=== PATIENT | female | born 1960 | race Caucasian/White ===

== ENCOUNTER 2017-09-22 20:26 | Emergency (ER) | payer MEDICAID, MEDICARE ==
[2017-09-22] MEDS ORDERED: OXYCODONE-ACETAMINOPHEN 5-325 MG TABLET PO ONE (21:07)
--- NOTE | 2017-09-22 21:09 | ER Document Report ---
HPI - HPI Patient complains to provider of: knee pain Pain Level: 5 Context: Patient is a 56-year-old female that comes emergency department for chief complaint of acute on chronic knee pain. She states she slipped in the shower and landed on both knees. Patient states she has bad degenerative breakdown in her knees and spends a lot of her time in a wheelchair, states that orthopedic surgeons have told her she was too heavy to get knee replacements. She was established and pain management in [place], she just moved back here with her , she states that she needs both primary care and pain management here but has not been able to get in yet. She denies head injury, she denies chest or abdominal pain. - REPRODUCTIVE Reproductive: DENIES: : - MUSCULOSKELETAL Musculoskeletal: REPORTS: Extremity pain - right shoulder bilateral knees Past Medical History - General Information source: Patient - Social History Smoking Status: Never Smoker Frequency of alcohol use: None Drug Abuse: None Lives with: Family Family History: Reviewed & Not Pertinent Patient has suicidal ideation: No Patient has homicidal ideation: No - Past Medical History Cardiac Medical History: Reports: Hx Hypertension Denies: Hx Coronary Artery Disease, Hx Heart Attack Pulmonary Medical History: Reports: Hx Bronchitis, Hx Pneumonia Denies: Hx Asthma, Hx COPD, Hx Tuberculosis Neurological Medical History: Denies: Hx Cerebrovascular Accident, Hx Seizures Renal/ Medical History: Denies: Hx Peritoneal Dialysis Musculoskeltal Medical History: Reports Hx Arthritis Past Surgical History: Reports: Hx Cholecystectomy, Hx Hysterectomy, Hx Orthopedic Surgery. Denies: Hx Pacemaker - Immunizations Hx Diphtheria, Pertussis, Tetanus Vaccination: No Hx Pneumococcal Vaccination: 07/17/11 Vertical Provider Document - CONSTITUTIONAL General Appearance: WD/WN, Mild Distress - Patient appears to be uncomfortable but not in severe distress, Obese - HEENT HEENT: Atraumatic, Normocephalic - NECK Neck: Normal Inspection - RESPIRATORY Respiratory: Breath Sounds Normal, No Respiratory Distress O2 Sat by Pulse Oximetry: 94 - CARDIOVASCULAR Cardiovascular: Regular Rate, Regular Rhythm - GI/ABDOMEN Gastrointestinal: Abdomen Soft, Abdomen Non-Tender - MUSCULOSKELETAL/EXTREMETIES Musculoskeletal/Extremeties: Tender - Patient with generalized tenderness over the right rotator cuff, proximal humerus, and over the tricep and bicep. No swelling, range of motion intact, normal strength, normal distal neurovascular exam. Bilateral knees with mild generalized tenderness, questionable swelling, no erythema, abnormal heat; normal lower extremity exam otherwise. - NEURO Level of Consciousness: Awake, Alert, Appropriate - DERM Integumentary: Warm, Dry, No Rash Course - Re-evaluation Re-evalutation: Patient with bilateral degenerative changes in the knees with effusions and loss of joint space. No acute fractures or other acute concerning Antonellis. No erythema, abnormal heat, she does not walk well on them but she spends most of her time in a wheelchair. Patient also has calcification/tendinitis of the right shoulder. This is most likely cause of her pain as well. Patient requesting referrals to primary care and pain management, she is to see Dr. Prince and she wants referral to get back with him. She wants contact information. [place] drug reporting system reviewed and does not show any recent prescription in this state. Patient given small amount of pain medication until she can establish close follow-up with pain management, she states that she will follow-up with both pain management and primary care. Discussed that the ER does not manage chronic problems long-term and she needs to follow-up to get care. Discussed return precautions including fever, redness , swelling, or any other concerning symptoms. Patient and state understanding and agreement. - Vital Signs Vital signs: Temp Pulse Resp BP Pulse Ox 98.2 F 96 20 126/98 H 94 09/22/17 20:33 09/22/17 20:33 09/22/17 20:33 09/22/17 20:33 09/22/17 20:33 Discharge - Discharge Clinical Impression: Knee injury Qualifiers: Encounter type: initial encounter Laterality: unspecified laterality Qualified Code(s): S89.90XA - Unspecified injury of unspecified lower leg, initial encounter Chronic knee pain Qualifiers: Laterality: bilateral Qualified Code(s): M25.561 - Pain in right knee Condition: Stable Disposition: HOME, SELF-CARE Additional Instructions: X-rays do not show fractures, you do have loss of joint space, arthritis, and fluid in the knee on both sides. X-ray indicates arthritis and tendinitis of the shoulder. Apply ice to the area , take [id number] anti-inflammatory, rest the shoulder. Take the pain medication, call tomorrow for close follow-up with both primary care and pain management to establish care for this. Continue your stool softener. The ER does not continue to manage chronic pain conditions. Return to the emergency department if you worsen including redness, fever, or any other concerning symptoms. Prescriptions: Morphine Sulfate [Morphine Ir 15 Mg Tablet] 15 mg PO Q4HP PRN #12 tablet PRN Reason: Referrals: RENEE CALL MD [ACTIVE STAFF] - Follow up as needed GÓMEZ PRINCE MD [ACTIVE STAFF] - Follow up tomorrow [facility] [Provider Group] - Follow up tomorrow
--- NOTE | 2017-09-22 21:46 | RADIOLOGY REPORT (SQ) ---
EXAM DESCRIPTION: KNEE BILATERAL 1-2 VIEWS COMPLETED DATE/TIME: 09/22/2017 9:34 pm REASON FOR STUDY: fall on knees, pain COMPARISON: None. NUMBER OF VIEWS: Two views right knee. Two views left knee. TECHNIQUE: AP and lateral radiographic images acquired of the right and left knee. LIMITATIONS: None. FINDINGS: MINERALIZATION: Normal. BONES: No acute fracture. 3 compartment osteoarthritis with severe medial compartment joint space na rrowing bilateral. JOINT: Effusions. SOFT TISSUES: No soft tissue swelling. No radio-opaque foreign body. OTHER: No other significant finding. IMPRESSION: No acute fracture. 3 compartment osteoarthritis predominantly medial compartment. Effusions. TECHNICAL DOCUMENTATION: JOB ID: [id number] [employer]- All Rights Reserved
--- NOTE | 2017-09-22 22:52 | RADIOLOGY REPORT (SQ) ---
EXAM DESCRIPTION: SHOULDER RIGHT 2 OR MORE VIEWS CLINICAL HISTORY: 56 years, Female, right shoulder and arm pain COMPARISON: None. NUMBER OF VIEWS: Three. TECHNIQUE: Internal/external rotation, and scapular Y LIMITATIONS: None. FINDINGS: Punctate developmental calcification/tendinitis of the distal rotator cuff. Bones and joints of the right shoulder appear otherwise intact. IMPRESSION: As above. 2010 [employer] [facility] [employer]- All Rights Reserved
[2017-09-22] MEDS ORDERED: HYDROCODONE/ACETAMINOPHEN 5-325 MG 6 TAB/DSPK PO PRN (22:57)
[2017-09-22 23:13] VITALS: BP 134/62
== END 2017-09-22 23:13 | disposition home or self-care (01) ==
LOC: ER 20:26
DX: S89.90XA Unspecified injury of unspecified lower leg, initial encounter (principal); W18.2XXA Fall in (into) shower or empty bathtub, initial encounter; M25.561 Pain in right knee; M25.562 Pain in left knee; G89.29 Other chronic pain; M25.462 Effusion, left knee; M25.461 Effusion, right knee; M75.31 Calcific tendinitis of right shoulder; M25.511 Pain in right shoulder; I10 Essential (primary) hypertension
CPT/HCPCS: 99283; 73030; 73560; A9270 ×2

== ENCOUNTER 2017-09-28 17:42 | Emergency (ER) | payer MEDICARE ==
--- NOTE | 2017-09-28 18:44 | RADIOLOGY REPORT (SQ) ---
EXAM DESCRIPTION: KNEE LEFT 4 VIEW COMPLETED DATE/TIME: 09/28/2017 6:35 pm REASON FOR STUDY: fall COMPARISON: None. NUMBER OF VIEWS: Four views. TECHNIQUE: AP, lateral, and both oblique radiographic images acquired of the left knee. LIMITATIONS: None. FINDINGS: MINERALIZATION: Normal. BONES: No acute fracture or dislocation. Marked joint space narrowing with sclerosis and osteophytes , particularly in the medial compartment. No worrisome bone lesions. JOINT: No effusion. SOFT TISSUES: No soft tissue swelling. No radio-opaque foreign body. OTHER: No other significant finding. IMPRESSION: MARKED DEGENERATIVE JOINT DISEASE. NO RADIOGRAPHIC EVIDENCE OF ACUTE INJURY. TECHNICAL DOCUMENTATION: JOB ID: [id number] [employer]- All Rights Reserved
--- NOTE | 2017-09-28 18:44 | RADIOLOGY REPORT (SQ) ---
EXAM DESCRIPTION: SHOULDER RIGHT 2 OR MORE VIEWS COMPLETED DATE/TIME: 09/28/2017 6:35 pm REASON FOR STUDY: fall COMPARISON: None. NUMBER OF VIEWS: Three views. TECHNIQUE: Internal rotation, external rotation, and Y view images acquired of the right shoulder. LIMITATIONS: None. FINDINGS: MINERALIZATION: Normal. BONES: No acute fracture or dislocation. No worrisome bone lesions. JOINTS: No dislocation. VISUALIZED LUNGS AND RIBS: No pneumothorax. No rib fracture. SOFT TISSUES: No radiopaque foreign body. OTHER: No other significant finding. IMPRESSION: NO SIGNIFICANT RADIOGRAPHIC ABNORMALITY. TECHNICAL DOCUMENTATION: JOB ID: [id number] [employer]- All Rights Reserved
--- NOTE | 2017-09-28 19:17 | ER Document Report ---
ED General - General Chief Complaint: Fall Injury Stated Complaint: FALL KNEE PAIN Time Seen by Provider: 09/28/17 18:32 Notes: Patient is a 56-year-old female with a past medical history of chronic left knee pain, morbid obesity, who presents after she fell out of her bed this morning during a dream and landed on her left knee and right shoulder. She denies hitting her head or neck. She reports that since falling out of bed she has had a constant, throbbing, severe pain to the left knee and right shoulder. She notes that the pain is so severe prevents her from being able to walk. She has not seen her primary doctor regarding today's concerns. She has not tried anything for relief of her pain at home. TRAVEL OUTSIDE OF THE [place] IN LAST 30 DAYS: No - Related Data Allergies/Adverse Reactions: clindamycin Allergy (Verified 09/28/17 18:23) sulfamethoxazole [From Bactrim] Allergy (Verified 09/28/17 18:23) trimethoprim [From Bactrim] Allergy (Verified 09/28/17 18:23) vancomycin Allergy (Verified 09/28/17 18:23) Past Medical History - General Information source: Patient - Social History Smoking Status: Current Every Day Smoker Chew tobacco use (# tins/day): No Frequency of alcohol use: None Drug Abuse: None Lives with: Family Family History: Reviewed & Not Pertinent Patient has suicidal ideation: No Patient has homicidal ideation: No - Past Medical History Cardiac Medical History: Reports: Hx Hypertension Denies: Hx Coronary Artery Disease, Hx Heart Attack Pulmonary Medical History: Reports: Hx Bronchitis, Hx COPD - no home oxygen, Hx Pneumonia Denies: Hx Asthma, Hx Tuberculosis Neurological Medical History: Denies: Hx Cerebrovascular Accident, Hx Seizures Renal/ Medical History: Denies: Hx Peritoneal Dialysis Musculoskeltal Medical History: Reports Hx Arthritis Past Surgical History: Reports: Hx Cholecystectomy, Hx Hysterectomy, Hx Orthopedic Surgery - Bilateral feet screws. Denies: Hx Pacemaker - Immunizations Hx Diphtheria, Pertussis, Tetanus Vaccination: No Hx Pneumococcal Vaccination: 07/17/11 Review of Systems - Review of Systems Notes: Constitutional: Negative for fever. Eyes: Negative for visual changes. ENT: Negative for facial injury Cardiovascular: Negative for chest injury. Respiratory: Negative for shortness of breath. Gastrointestinal: Negative for abdominal injury. Genitourinary: Negative for genital injury Musculoskeletal: Positive for left knee and right shoulder pain Skin: Negative for laceration/abrasions. Neurological: Negative for head injury. Physical Exam - Vital signs Vitals: Temp Pulse Resp BP Pulse Ox 97.8 F 76 20 104/50 L 96 09/28/17 18:54 09/28/17 18:54 09/28/17 18:54 09/28/17 18:54 09/28/17 18:54 Interpretation: Normal Notes: PHYSICAL EXAMINATION: GENERAL: Appears uncomfortable but in no acute distress HEAD: Atraumatic, normocephalic. EYES: Pupils equal round and reactive to light, extraocular movements intact, sclera anicteric, conjunctiva are normal. ENT: nares patent, no oral pharyngeal trauma. No hemotympanum, no Levine's sign , no raccoon eyes. NECK: No midline cervical spine tenderness. Patient able to move their head to 45 bilaterally without any discomfort. LUNGS: Breath sounds clear to auscultation bilaterally and equal. No wheezes rales or rhonchi. HEART: Regular rate and rhythm without murmurs. CHEST WALL: No ecchymosis over the chest wall. ABDOMEN: Soft, nontender, normoactive bowel sounds. No guarding, no rebound. No abdominal bruit EXTREMITIES: Mild ecchymosis to the medial aspect of the left knee. Able to flex the knee to 90 with assistance. No evidence of trauma to the right shoulder. Full range of motion of the right shoulder. Extremity examination otherwise unremarkable. BACK: No midline spinal tenderness, step-offs, or deformities. NEUROLOGICAL: Moves all extremities spontaneously and on command PSYCH: Somewhat anxious, tearful SKIN: Warm, Dry, normal turgor, no rashes or lesions noted. Course - Re-evaluation Re-evalutation: 09/28/17 19:21 Presentation of a well appearing elderly patient in no acute distress, vitals within normal limits after a fall out of her bed earlier today landing on her right shoulder and left knee. She denies any head or neck trauma. No focal neurologic deficits on exam, no evidence of basilar skull fracture on exam without evidence of hemotympanum, raccoon eyes, or periauricular hematoma. No papilledema. Patient is not on anticoagulation. GCS is 15. No loss of consciousness. No episodes of vomiting. No midline cervical spine tenderness , step-offs or deformities. No indication for further imaging of the cervical spine. Patient was complaining of significant pain to the left knee and right shoulder both which she chronically has pain in. There is mild bruising to the medial aspect of the left knee but no otherwise significant evidence of trauma to the area. 2+ DP pulses bilaterally. KYLER greater than 0.9 in the left lower extremity. X-rays without any evidence of acute fracture or dislocation. Chest and abdominal exam are benign without any focal tenderness, shortness of breath, or bruising over the chest or abdominal wall. Patient has no flank tenderness. There is no obvious findings on trauma exam today and therefore no further imaging or evaluation will be obtained at this time. Will place the knee immobilizer and provided crutches. Orthopedic follow-up will be recommended. at this time will discharge with return precautions and follow-up recommendations. Verbal discharge instructions given a the bedside and opportunity for questions given. Medication warnings reviewed. Patient is in agreement with this plan and has verbalized understanding of return precautions and the need for primary care follow-up in the next 24-72 hours. - Vital Signs Vital signs: Temp Pulse Resp BP Pulse Ox 97.8 F 77 18 96/55 L 98 09/28/17 18:54 09/28/17 20:02 09/28/17 20:02 09/28/17 20:02 09/28/17 20:02 - Diagnostic Test Radiology reviewed: Image reviewed, Reports reviewed Radiology results interpreted by me: 09/28/17 19:27 Left knee x-ray: No acute fracture or dislocation Right shoulder x-ray: No acute fracture or dislocation Discharge - Discharge Clinical Impression: Left knee pain Qualifiers: Chronicity: acute Qualified Code(s): M25.562 - Pain in left knee Right shoulder pain Qualifiers: Chronicity: acute Qualified Code(s): M25.511 - Pain in right shoulder Fall Qualifiers: Encounter type: initial encounter Qualified Code(s): W19.XXXA - Unspecified fall, initial encounter Condition: Stable Disposition: HOME, SELF-CARE Additional Instructions: Your x-ray does not show any acute fracture today. You likely have worsening of her chronic arthritis as well as soft tissue injury from a fall today. For your pain: Take ibuprofen 600 mg and acetaminophen 1000 mg every 6 hours together as needed for pain. Continue to apply ice to the area is much your able. Please follow-up with your primary care physician if you do not have improving your symptoms in the next 1-2 weeks. Please return immediately if you develop weakness, numbness, spreading redness from the area, or any other symptoms that are concerning to you. Referrals: GERMANIA VALLEJO MD [ACTIVE STAFF] - Follow up as needed
[2017-09-28] MEDS ORDERED: IBUPROFEN 600 MG TABLET PO ONE (19:28)
[2017-09-28] MEDS ORDERED: MORPHINE SULFATE IR 15 MG TABLET PO ONE (19:28)
[2017-09-28] MEDS ORDERED: LIDOCAINE 5% (700 MG) TRANSDERMAL ADH..PATCH TP ONE (19:29)
[2017-09-28 20:04] VITALS: BP 96/55
== END 2017-09-28 20:04 | disposition home or self-care (01) ==
LOC: ER 17:42
DX: M25.562 Pain in left knee (principal); M25.511 Pain in right shoulder; E66.01 Morbid (severe) obesity due to excess calories; W06.XXXA Fall from bed, initial encounter; F17.200 Nicotine dependence, unspecified, uncomplicated; Z88.3 Allergy status to other anti-infective agents
CPT/HCPCS: 99283; 73562; 73030; A9270 ×2

== ENCOUNTER → 2017-12-30 | Outpatient (CLI) | payer MEDICARE ==
--- NOTE | 2017-12-30 15:08 | RADIOLOGY REPORT (SQ) ---
EXAM DESCRIPTION: SHOULDER LEFT 2 OR MORE VIEWS COMPLETED DATE/TIME: 12/30/2017 2:58 pm REASON FOR STUDY: PAIN IN LEFT SHOULDER M25.512 PAIN IN LEFT SHOULDER M54.2 CERVICALGIA COMPARISON: None. NUMBER OF VIEWS: Three views. TECHNIQUE: Internal rotation, external rotation, and Y view images acquired of the left shoulder. LIMITATIONS: None. FINDINGS: MINERALIZATION: Normal. BONES: No acute fracture or dislocation. No worrisome bone lesions. JOINTS: No dislocation. VISUALIZED LUNGS AND RIBS: No pneumothorax. No rib fracture. SOFT TISSUES: No radiopaque foreign body. OTHER: No other significant finding. IMPRESSION: NEGATIVE STUDY OF THE LEFT SHOULDER. NO RADIOGRAPHIC EVIDENCE OF ACUTE INJURY. TECHNICAL DOCUMENTATION: JOB ID: [id number] [email or web address]- All Rights Reserved Reading location - IP/workstation name: [email or web address]
--- NOTE | 2017-12-30 15:11 | RADIOLOGY REPORT (SQ) ---
EXAM DESCRIPTION: C SP 4 OR 5 VIEWS COMPLETED DATE/TIME: 12/30/2017 2:58 pm REASON FOR STUDY: CERVICALGIA M25.512 PAIN IN LEFT SHOULDER M54.2 CERVICALGIA COMPARISON: None. NUMBER OF VIEWS: Five views. TECHNIQUE: AP, lateral, obliques and odontoid radiographic images acquired of the cervical spine. LIMITATIONS: None. FINDINGS: MINERALIZATION: Normal. ALIGNMENT: Anatomic. VERTEBRAE: Vertebral body height is maintained. There appears to be congenital fusion of C5 and 6. DISCS: Disc spaces are narrowed throughout the cervical spine. Anterior and posterior osteophytes ar e present. FORAMINA: No osteophytes or foraminal narrowing. LATERAL AND POSTERIOR ELEMENTS: Facets, lateral masses and spinous processes without significant find ings. HARDWARE: None in the spine. SOFT TISSUES: No masses or calcifications. Lung apices clear. OTHER: No other significant finding. 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 No acute abnorma lity. TECHNICAL DOCUMENTATION: JOB ID: [id number] [employer]- All Rights Reserved Reading location - IP/workstation name: [email or web address]
== END ==
LOC: OD 14:32
PROVIDERS: ATTEND Family Medicine
DX: M25.512 Pain in left shoulder (principal); M54.2 Cervicalgia
CPT/HCPCS: 72050

== ENCOUNTER 2018-02-06 17:43 | Emergency (ER) | payer MEDICARE ==
--- NOTE | 2018-02-06 18:59 | ER Document Report ---
HPI - HPI Patient complains to provider of: rt index finger pain, asthma med refill Onset: Yesterday Onset/Duration: Gradual Pain Level: 3 Context: 57-year-old female complaining of right index finger hangnail and redness at the nailbed since yesterday. She is also complaining of needing an albuterol inhaler and wheezing. PCP is Dr. Wilkes. No fever or chills. No chest pain or shortness of breath. Associated Symptoms: None Exacerbated by: Movement - Of the finger Relieved by: Denies - ROS ROS below otherwise negative: Yes Systems Reviewed and Negative: Yes All other systems reviewed and negative - REPRODUCTIVE Reproductive: DENIES: : Past Medical History - General Information source: Patient - Social History Smoking Status: Current Every Day Smoker Frequency of alcohol use: None Drug Abuse: None Lives with: Family Family History: Reviewed & Not Pertinent - Past Medical History Cardiac Medical History: Reports: Hx Hypertension Pulmonary Medical History: Reports: Hx Bronchitis, Hx COPD - no home oxygen, Hx Pneumonia Renal/ Medical History: Denies: Hx Peritoneal Dialysis Musculoskeltal Medical History: Reports Hx Arthritis Past Surgical History: Reports: Hx Cholecystectomy, Hx Hysterectomy, Hx Orthopedic Surgery - Bilateral feet screws - Immunizations Hx Diphtheria, Pertussis, Tetanus Vaccination: No Hx Pneumococcal Vaccination: 07/17/11 Vertical Provider Document - CONSTITUTIONAL Agree With Documented VS: Yes Exam Limitations: No Limitations - INFECTION CONTROL TRAVEL OUTSIDE OF THE [place] IN LAST 30 DAYS: No - HEENT HEENT: Normal ENT Exam - NECK Neck: Supple. negative: Lymphadenopathy-Left, Lymphadenopathy-Right - RESPIRATORY Respiratory: Wheezing - exp bilaterally - CARDIOVASCULAR Cardiovascular: Regular Rate, Regular Rhythm - GI/ABDOMEN Gastrointestinal: Abdomen Soft, Abdomen Non-Tender - MUSCULOSKELETAL/EXTREMETIES Musculoskeletal/Extremeties: MAEW, FROM, Tender - Mild inflammation along the nailbed of the right index finger, no paronychia, no felon - NEURO Level of Consciousness: Awake Motor/Sensory: No Motor Deficit, No Sensory Deficit - DERM Integumentary: Warm, Dry Course - Re-evaluation Re-evalutation: 02/06/18 19:47 No wheeze after the nebulizer. She states she does not have any money to get an albuterol metered-dose inhaler so I dispensed her one. Starting on cephalexin for this early eponychium inflammation - Vital Signs Vital signs: Temp Pulse Resp BP Pulse Ox 97.6 F 86 24 H 127/68 H 96 02/06/18 18:24 02/06/18 18:24 02/06/18 18:24 02/06/18 18:24 02/06/18 18:24 Discharge - Discharge Clinical Impression: asthma, Epionychium inflammation Condition: Good Disposition: HOME, SELF-CARE Instructions: Asthma ([facility]), Cephalexin ([facility]), Inhaled Bronchodilators ([facility]), Stop Smoking ([facility]) Additional Instructions: use the inhaler stop smoking cephalexin for the early nailbed infection soak the finger in epsom salts Prescriptions: Cephalexin Monohydrate [Keflex 500 mg Capsule] 500 mg PO QID #28 capsule Referrals: MATT WILKES DO [Primary Care Provider] - Follow up as needed
[2018-02-06] MEDS ORDERED: IPRATROPIUM/ALBUTEROL 0.5-2.5 MG/3 ML AMPUL NEB ONE (19:07)
[2018-02-06] MEDS ORDERED: ALBUTEROL SULFATE HFA (90 MCG/PUFF) 8 GM MDI (1 MDI/ER DISP) IH PRN (19:44)
[2018-02-06] MEDS ORDERED: CEPHALEXIN 500 MG CAPSULE PO ONE (19:52)
[2018-02-06 20:04] VITALS: BP 128/72
== END 2018-02-06 20:04 | disposition home or self-care (01) ==
LOC: ER 17:43
DX: L03.011 Cellulitis of right finger (principal); J44.9 Chronic obstructive pulmonary disease, unspecified; I10 Essential (primary) hypertension; F17.200 Nicotine dependence, unspecified, uncomplicated
CPT/HCPCS: 94640; 99283; A9270 ×2; J3490; J7620

== ENCOUNTER 2018-02-14 13:35 | Emergency (ER) | payer MEDICARE ==
[2018-02-14 13:46] VITALS: BP 126/84
[2018-02-14] MEDS ORDERED: DEXAMETHASONE SOD PHOS INJ 10 MG/1 ML VIAL IM ONE (14:25)
[2018-02-14] MEDS ORDERED: KETOROLAC TROMETHAMINE 60 MG/2 ML SDV IM ONE (14:25)
--- NOTE | 2018-02-14 14:38 | ER Document Report ---
ED Neck/Back Problem - General Chief Complaint: Leg Pain Stated Complaint: RIGHT LEG PAIN Time Seen by Provider: 02/14/18 14:17 Notes: The patient is a 57-year-old female, past medical history chronic back pain, chronic right-sided sciatica, presents with several days of her worsening right- sided sciatica. She tried her Percocet without much relief of her symptoms. She denies new injury, rash, change in bowel or bladder, saddle anesthesia, difficulty walking or leg swelling. TRAVEL OUTSIDE OF THE [place] IN LAST 30 DAYS: No - Related Data Allergies/Adverse Reactions: clindamycin Allergy (Verified 02/14/18 13:37) sulfamethoxazole [From Bactrim] Allergy (Verified 02/14/18 13:37) trimethoprim [From Bactrim] Allergy (Verified 02/14/18 13:37) vancomycin Allergy (Verified 02/14/18 13:37) Home Medications: percocet, Past Medical History - General Information source: Patient - Social History Smoking Status: Current Every Day Smoker Chew tobacco use (# tins/day): No Frequency of alcohol use: None Drug Abuse: None Family History: Reviewed & Not Pertinent Patient has suicidal ideation: No Patient has homicidal ideation: No - Past Medical History Cardiac Medical History: Reports: Hx Hypertension Denies: Hx Coronary Artery Disease, Hx Heart Attack Pulmonary Medical History: Reports: Hx Bronchitis, Hx COPD - no home oxygen, Hx Pneumonia Denies: Hx Asthma, Hx Tuberculosis Neurological Medical History: Denies: Hx Cerebrovascular Accident, Hx Seizures Renal/ Medical History: Denies: Hx Peritoneal Dialysis Musculoskeltal Medical History: Reports Hx Arthritis Past Surgical History: Reports: Hx Cholecystectomy, Hx Hysterectomy, Hx Orthopedic Surgery - Bilateral feet screws. Denies: Hx Pacemaker - Immunizations Hx Diphtheria, Pertussis, Tetanus Vaccination: No Hx Pneumococcal Vaccination: 07/17/11 Review of Systems - Review of Systems Notes: REVIEW OF SYSTEMS: CONSTITUTIONAL: -fevers, -chills EENT: -eye pain, -difficulty swallowing, -nasal congestion CARDIOVASCULAR: -chest pain, -syncope. RESPIRATORY: -cough, -SOB GASTROINTESTINAL: -abdominal pain, -nausea, -vomiting, -diarrhea GENITOURINARY: -dysuria, -hematuria MUSCULOSKELETAL: +back pain, -neck pain SKIN: -rash or skin lesions. HEMATOLOGIC: -easy bruising or bleeding. LYMPHATIC: -swollen, enlarged glands. NEUROLOGICAL: -altered mental status or loss of consciousness, -headache, + tingling down back of right leg PSYCHIATRIC: -anxiety, -depression. ALL OTHER SYSTEMS REVIEWED AND NEGATIVE. Physical Exam - Vital signs Vitals: Temp Pulse Resp BP Pulse Ox 98.6 F 95 22 H 126/84 H 96 02/14/18 13:42 02/14/18 13:42 02/14/18 13:42 02/14/18 13:42 02/14/18 13:42 - Notes Notes: PHYSICAL EXAMINATION: GENERAL: Well-appearing, well-nourished and in no acute distress. HEAD: Atraumatic, normocephalic. EYES: Pupils equal round and reactive to light, extraocular movements intact, sclera anicteric, conjunctiva are normal. ENT: nares patent, oropharynx clear without exudates. Moist mucous membranes. NECK: Normal range of motion, supple without lymphadenopathy LUNGS: Breath sounds clear to auscultation bilaterally and equal. No wheezes rales or rhonchi. HEART: Regular rate and rhythm without murmurs ABDOMEN: Soft, nontender, normoactive bowel sounds. No guarding, no rebound. No masses appreciated. EXTREMITIES: Normal range of motion, no pitting or edema. No cyanosis. Strong distal pulses. BACK: No midline tenderness, tenderness over right lower back and over SI joint. NEUROLOGICAL: Cranial nerves grossly intact. Normal speech. Normal sensory and motor exams. PSYCH: Normal mood, normal affect. SKIN: Warm, Dry, normal turgor, no rashes or lesions noted. Course - Re-evaluation Re-evalutation: Patient with acute exacerbation of her low back pain and sciatica. She has no red flag signs for low back pain at this time. She has strong distal pulses and no calf tenderness or asymmetrical swelling to suggest vascular injury or blood clot. She said that Toradol has helped in the past. Will provide her Toradol and Decadron with follow-up at her primary care physician. - Vital Signs Vital signs: Temp Pulse Resp BP Pulse Ox 98.6 F 95 22 H 126/84 H 96 02/14/18 13:42 02/14/18 13:42 02/14/18 13:42 02/14/18 13:42 02/14/18 13:42 Discharge - Discharge Clinical Impression: Chronic low back pain with sciatica Qualifiers: Back pain laterality: right Sciatica laterality: sciatica of right side Qualified Code(s): M54.41 - Lumbago with sciatica, right side Condition: Stable Disposition: HOME, SELF-CARE Additional Instructions: LOW BACK PAIN: Three out of every four people will have an episode of disabling back pain during their lifetime. Most commonly the pain is due to straining of the muscles and ligaments in the low back. Usual treatment includes: (1) Rest on a firm surface. Avoid lying on your stomach. (2) Ice pack the painful area. After a few days, gentle heat may be used intermittently to relax the area, or ice packs can be continued. (3) Medication may be needed -- muscle relaxers and antiinflammatory medicines are commonly used. (4) As the back improves, exercises are prescribed to strengthen the back and abdominal muscles. Your doctor will advise you on the proper care for your back at each stage in your recovery. You may be better in a few days -- or healing may take several weeks. If new symptoms of a "herniated disc" (radiation of pain, numbness, or tingling down the back of the leg or weakness in the leg) occur, you should be re-examined. Further testing may be necessary. PAIN MEDICATION INJECTION: You have received an injection of a pain medication. You should experience significant pain relief within 45 minutes. If this injection was a narcotic -- it will impair your judgement, slow your reaction time and make you sleepy (as well as relieve your pain). Narcotics also can cause nausea. You should not drive, work with machinery, or perform any task requiring mental alertness until all effects of the medication are gone -- six to eight hours. Do not take any alcohol, or sedatives, and do not take any other medication without checking with your physician. ICE PACKS: Apply ice packs frequently against the painful area. Many different schedules are recommended, such as "20 minutes on, 20 minutes off" or "one hour ice, two hours rest." If you need to work, you may need to go longer between ice treatments. You should plan to have the area ice packed AT LEAST one fourth of the time. The ice should be applied over the wrap, tape, or splint, or over a layer of cloth -- not directly against the skin. Some ice bags have a built-in cloth and can be put directly on the skin. WARM PACKS: After approximately two days, apply gentle heat (such as a heating pad or hot water bottle) for about 20 to 30 minutes about every two hours -- at least four times daily. Warmth and elevation will help you make a more rapid recovery , and will ease the pain considerably. Do not use HOT heat, and never apply heat for longer than 30 minutes. The continuous heat can invisibly damage skin and muscles -- even when no burn is seen on the surface. Damaged muscles can make you MORE sore. FOLLOW-UP CARE: If you have been referred to a physician for follow-up care, call the physician s office for an appointment as you were instructed or within the next two days. If you experience worsening or a significant change in your symptoms, notify the physician immediately or return to the Emergency Department at any time for re-evaluation. Prescriptions: Lidocaine [Lidoderm 5% (700 mg) Transdermal Patch] 1 patch TP DAILY #10 adh..patch Naproxen [Naprosyn 250 mg Tablet] 500 mg PO Q12H PRN #30 tablet PRN Reason: Forms: Elevated Blood Pressure Referrals: MATT MATHIAS DO [Primary Care Provider] - Follow up as needed
== END 2018-02-14 14:42 | disposition home or self-care (01) ==
LOC: ER 13:35
DX: G89.29 Other chronic pain (principal); M54.41 Lumbago with sciatica, right side; F17.200 Nicotine dependence, unspecified, uncomplicated; I10 Essential (primary) hypertension; J44.9 Chronic obstructive pulmonary disease, unspecified; Z88.1 Allergy status to other antibiotic agents
CPT/HCPCS: 99283; J1885; J1100

== ENCOUNTER 2018-02-27 02:43 | Emergency (ER) | payer MEDICARE ==
[2018-02-27] MEDS ORDERED: HYDROMORPHONE HCL INJ/PF 2 MG/ML AMPULE IM ONE (03:49)
--- NOTE | 2018-02-27 04:06 | ER Document Report ---
ED General - General Chief Complaint: Leg Swelling Stated Complaint: LEFT FOOT PAIN Time Seen by Provider: 02/27/18 03:38 Notes: Patient is a 57-year-old female presents with complaint of pain along medial aspect of her left foot. She said there is a small area of swelling and redness there. Says it is a significant burning sensation over this area. She denies any recent fevers. She says that last week she was told by her doctors she may have an ear infection she had pain in her ear. She was therefore placed on Keflex. She is currently on the medication right now. He denies any vomiting. No diarrhea. She is not diabetic. She denies any injuries or trauma to her foot. No other complaints at this time. She does take Percocet at home for her chronic pain. TRAVEL OUTSIDE OF THE [place] IN LAST 30 DAYS: No - Related Data Allergies/Adverse Reactions: clindamycin Allergy (Verified 02/27/18 03:53) sulfamethoxazole [From Bactrim] Allergy (Verified 02/27/18 03:53) trimethoprim [From Bactrim] Allergy (Verified 02/27/18 03:53) vancomycin Allergy (Verified 02/27/18 03:53) Past Medical History - Social History Smoking Status: Current Every Day Smoker Frequency of alcohol use: None Drug Abuse: None Family History: Reviewed & Not Pertinent Patient has suicidal ideation: No Patient has homicidal ideation: No - Past Medical History Cardiac Medical History: Reports: Hx Hypertension Denies: Hx Coronary Artery Disease, Hx Heart Attack Pulmonary Medical History: Reports: Hx Bronchitis, Hx COPD - no home oxygen, Hx Pneumonia Denies: Hx Asthma, Hx Tuberculosis Neurological Medical History: Denies: Hx Cerebrovascular Accident, Hx Seizures Renal/ Medical History: Denies: Hx Peritoneal Dialysis Musculoskeltal Medical History: Reports Hx Arthritis Past Surgical History: Reports: Hx Cholecystectomy, Hx Hysterectomy, Hx Orthopedic Surgery - Bilateral feet screws. Denies: Hx Pacemaker - Immunizations Hx Diphtheria, Pertussis, Tetanus Vaccination: No Hx Pneumococcal Vaccination: 07/17/11 Review of Systems - Review of Systems Notes: My Normal Review Basic REVIEW OF SYSTEMS: CONSTITUTIONAL : Denies fever, chills, or sweats. Denies recent illness. RESPIRATORY: Denies cough, cold, or chest congestion. Denies shortness of breath, difficulty breathing, or wheezing. GASTROINTESTINAL: Denies abdominal pain. Denies nausea, vomiting, or diarrhea. Denies constipation. Last BM: MUSCULOSKELETAL: Left foot pain SKIN: Denies rash or skin lesions. NEUROLOGICAL: Denies altered mental status or loss of consciousness. Denies headache. Denies weakness or paralysis or loss of use of either side. Denies problems with gait or speech. Denies sensory or motor loss. ALL OTHER SYSTEMS REVIEWED AND NEGATIVE. Physical Exam - Vital signs Vitals: Temp Pulse Resp BP Pulse Ox 98.4 F 88 20 123/63 96 02/27/18 02:50 02/27/18 02:50 02/27/18 02:50 02/27/18 02:50 02/27/18 02:50 - Notes Notes: General Appearance: Well nourished, alert, cooperative, no acute distress, moderate obvious discomfort. Vitals: reviewed, See vital signs table. Eyes: PERRL, EOMI, Conjuctiva clear Mouth: No decreasd moisture Lungs: No wheezing, No rales, No rhonci, No accessory muscle use, good air exchange bilaterally. Heart: Normal rate, Regular rythm, No murmur, no rub Abdomen: Normal BS, soft, No rigidity, No abdominal tenderness, No guarding, no rebound, no abdominal masses, no organomegaly Extremities: strength 5/5 in all extremities, good pulses in all extremities, patient has very small area of swelling on the medial aspect of the left foot. There is little bit red. Remainder of her bilateral lower extremities do have some edema which appears to be chronic with very faint redness. Edema is equal in bilateral extremities. Skin: warm, dry, appropriate color, no rash Neuro: speech clear, oriented x 3, normal affect, responds appropriately to questions. Course - Re-evaluation Re-evalutation: 02/27/18 05:38 Patient initially had pain on proportion to exam. Therefore gave a dose pain medicine and felt around feel for crepitance. Patient no crepitus. On external exam does not look consistent with that of necrotizing fasciitis and is really just localized to the medial aspect of the foot. I did obtain x-ray and is noted subcutaneous emphysema and there is no foreign body seen. Patient is now looking much improved and says she feels very well. She does not have a fever. She is not tachycardic. I feel she is safe to be discharged home. The parents of the redness on her foot is consistent with that of a early bacterial infection or possible fungal type infection. I will place her on Motrin cream as well as place her on doxycycline. Encouraged her follow-up closely with her doctor on Tuesday. I encouraged her return to ER if she has spreading redness, increasing pain, fevers, or feels unwell. Patient agrees with plan will be discharged home. Dictation of this chart was performed using voice recognition software; therefore, there may be some unintended grammatical errors. - Vital Signs Vital signs: Temp Pulse Resp BP Pulse Ox 98.4 F 88 20 123/63 96 02/27/18 02:50 02/27/18 02:50 02/27/18 02:50 02/27/18 02:50 02/27/18 02:50 Discharge - Discharge Clinical Impression: Foot pain, left Condition: Good Disposition: HOME, SELF-CARE Additional Instructions: The exact cause of your foot pain is not 100% clear. You do have some redness over the are of pain which can be related to a bacterial or fungal infection. I have prescribed you both an antibiotic and a anti fungal cream. please use these as prescribed and follow up with your doctor on Tuesday for reevaluation. Please return to the ER immediately if you develop fevers, increasing swelling, or worsening pain. Do not allow your skin to be exposed to the sun when you are on the antibiotic. Prescriptions: Butenafine HCl [Lotrimin Ultra 1% Cream] 1 applic TP BID #1 tube Doxycycline Hyclate 100 mg PO BID #14 tablet Referrals: MATT MATHIAS DO [Primary Care Provider] - 02/28/18
--- NOTE | 2018-02-27 05:01 | RADIOLOGY REPORT (SQ) ---
EXAM DESCRIPTION: XR FOOT 3 OR MORE VIEWS CLINICAL HISTORY: 57 years Female, pain on medial aspect COMPARISON: None. Findings: Screw fixation of the left fifth metatarsus.. Bones, joints, and soft tissues of the XR LEFT FOOT 3 VIEWS appear otherwise intact. IMPRESSION: No acute findings.
[2018-02-27 06:00] VITALS: BP 109/62
== END 2018-02-27 06:03 | disposition home or self-care (01) ==
LOC: ER 02:43
DX: M79.672 Pain in left foot (principal); M79.89 Other specified soft tissue disorders; L53.9 Erythematous condition, unspecified; R60.0 Localized edema; H92.09 Otalgia, unspecified ear; F17.200 Nicotine dependence, unspecified, uncomplicated; I10 Essential (primary) hypertension; J44.9 Chronic obstructive pulmonary disease, unspecified; G89.29 Other chronic pain; Z79.891 Long term (current) use of opiate analgesic; Z88.1 Allergy status to other antibiotic agents
CPT/HCPCS: 99283; 96372; 73630; J1170

== ENCOUNTER 2018-03-02 15:48 | Emergency (ER) | payer MEDICARE ==
[2018-03-02] MEDS ORDERED: IPRATROPIUM/ALBUTEROL 0.5-2.5 MG/3 ML AMPUL NEB ONE (16:28)
--- NOTE | 2018-03-02 17:24 | RADIOLOGY REPORT (SQ) ---
EXAM DESCRIPTION: CHEST 2 VIEWS COMPLETED DATE/TIME: 03/02/2018 5:14 pm REASON FOR STUDY: COPD, shortness of breath, wheezing. COMPARISON: 01/05/2012 EXAM PARAMETERS: NUMBER OF VIEWS: two views TECHNIQUE: Digital Frontal and Lateral radiographic views of the chest acquired. RADIATION DOSE: NA LIMITATIONS: none FINDINGS: LUNGS AND PLEURA: Stable chronic lung change without new opacities, masses or pneumothorax . No pleural effusion. MEDIASTINUM AND HILAR STRUCTURES: No masses or contour abnormalities. HEART AND VASCULAR STRUCTURES: Heart normal size. No evidence for failure. BONES: No acute findings. HARDWARE: None in the chest. OTHER: No other significant finding. IMPRESSION: NO ACUTE RADIOGRAPHIC FINDING IN THE CHEST. NO SIGNIFICANT CHANGE FROM PRIOR STUDY. TECHNICAL DOCUMENTATION: JOB ID: [id number] [employer]- All Rights Reserved Reading location - IP/workstation name: [email or web address]
--- NOTE | 2018-03-02 18:01 | ER Document Report ---
ED Respiratory Problem - General Chief Complaint: Shortness Of Breath Stated Complaint: SHORTNESS OF BREATH Time Seen by Provider: 03/02/18 16:28 Notes: Patient has had cough and congestion and difficulty breathing for the past couple of days. Her cough is almost constant. She is getting up some phlegm, but not very much. She has a history of COPD and continues to smoke cigarettes. Noted some fever today. Has not coughed up any blood. Vomited once this morning and again this afternoon. Patient has a history of congestive heart failure. Denies any chest pains. Patient was seen here just 3 days ago for pain in her left foot. She has chronic stasis dermatitis of the lower legs bilaterally. She was prescribed a fungus lotion and doxycycline for her feet when she was seen here just 3 days ago. TRAVEL OUTSIDE OF THE [place] IN LAST 30 DAYS: No - Related Data Allergies/Adverse Reactions: clindamycin Allergy (Verified 03/02/18 16:12) sulfamethoxazole [From Bactrim] Allergy (Verified 03/02/18 16:12) trimethoprim [From Bactrim] Allergy (Verified 03/02/18 16:12) vancomycin Allergy (Verified 03/02/18 16:12) Past Medical History - Social History Smoking Status: Current Every Day Smoker Chew tobacco use (# tins/day): No Frequency of alcohol use: None Drug Abuse: None Family History: Reviewed & Not Pertinent Patient has suicidal ideation: No Patient has homicidal ideation: No - Past Medical History Cardiac Medical History: Reports: Hx Congestive Heart Failure, Hx Hypertension Pulmonary Medical History: Reports: Hx Bronchitis, Hx COPD - no home oxygen, Hx Pneumonia Musculoskeltal Medical History: Reports Hx Arthritis Past Surgical History: Reports: Hx Cholecystectomy, Hx Hysterectomy, Hx Orthopedic Surgery - Bilateral feet screws - Immunizations Hx Diphtheria, Pertussis, Tetanus Vaccination: No Hx Pneumococcal Vaccination: 07/17/11 Review of Systems - Review of Systems Notes: REVIEW OF SYSTEMS: CONSTITUTIONAL : Denies fever. EENT: Denies eye, ear, nose or mouth or throat pain or other symptoms. CARDIOVASCULAR: Denies chest pain. RESPIRATORY: Has a chronic, productive sounding cough. Fine scattered expiratory wheezes throughout both lung gusman. GASTROINTESTINAL: Denies abdominal pain or nausea, vomiting, or diarrhea. GENITOURINARY: Denies difficulty or painful urinating, urinary frequency, blood in urine. MUSCULOSKELETAL: Denies back or neck pain. Denies joint pain or swelling. SKIN: Denies rash or skin lesions. See HPI and chart from patient's visit to this ED 3 days ago for redness and swelling and pain of her lower legs and ankles. The redness of her lower extremities has been present for many weeks or even longer and is acknowledged to be chronic. NEUROLOGICAL: Denies LOC or altered mental status. Denies headache. Denies sensory loss or motor deficits. ALL OTHER SYSTEMS REVIEWED AND NEGATIVE. Physical Exam - Vital signs Interpretation: Normal - Notes Notes: PHYSICAL EXAMINATION: GENERAL: Well-appearing, in no acute distress. Anxious. HEAD: Atraumatic, normocephalic. EYES: Pupils equal round and reactive to light, extraocular movements intact. ENT: oropharynx clear without exudates. Moist mucous membranes. NECK: Normal range of motion, supple. LUNGS: Breath sounds with fine expiratory wheezes scattered throughout both lung gusman. Good air exchange and movement. HEART: Regular rate and rhythm without murmurs. ABDOMEN: Soft, nontender. No guarding or rebound. No masses. BACK: No tenderness throughout entire back. EXTREMITIES: Normal range of motion without pain. NEUROLOGICAL: Normal speech, normal gait. Normal sensory, motor, and reflex exams. Awake, alert, and oriented x3. Cranial nerves normal. PSYCH: Normal mood, normal affect. SKIN: Warm, dry, no rashes. Erythema of the lower legs from just below the knees down to the ankle region bilaterally. She has excellent capillary refill of less than 2 seconds and she has easily palpable dorsalis pedis pulses bilaterally. Foot and toes are warm. Patient's redness of the lower extremities appears to be a chronic stasis dermatitis. Is not very warm to the touch. She was prescribed antibiotics for this condition when she was here 3 days ago and says she has filled them and is taking the doxycycline and using a fungal lotion. Negative Homans bilaterally. Course - Re-evaluation Re-evalutation: 03/02/18 18:27 Patient's breathing improved even further with another nebulizer here. Oxygen saturation is acceptable. Patient says that she has a home nebulizer but does not have the medications to use it. She was written prescriptions for the Nebules of albuterol and for a tapering prescription of prednisone starting at 60 mg tomorrow. - Diagnostic Test Radiology results interpreted by me: 03/02/18 18:26 Chest x-ray is normal. Discharge - Discharge Clinical Impression: COPD exacerbation Condition: Stable Disposition: HOME, SELF-CARE Additional Instructions: Chronic Obstructive Lung Disease You have chronic obstructive lung disease (COPD). The symptoms come from emphysema (damage to small airways, with trapping of air in large sacks in the lung) and chronic bronchitis (repeated infection and damage to larger airways). The cause is almost always cigarette smoking, although dust exposure, asthma, and infections contribute. You should avoid fumes, dust, and smoke (especially tobacco smoke). Your condition will flare from time to time. There is no cure, but the symptoms can be treated. Bronchodilators (asthma medicine) are often helpful. Antibiotics help when infection is present. When shortness of breath is severe, we may prescribe cortisone medication. If medicine doesn't help enough, we can arrange for you to have an oxygen tank at home. Notify your doctor at once if sputum becomes thick, foul, or bloody, if you develop a fever or chest pain, or if your shortness of breath worsens. UPPER RESPIRATORY ILLNESS: You have a viral infection of the respiratory passages -- a "cold." This common infection causes nasal congestion, drainage, and often sore throat and cough. It is highly contagious. The disease usually lasts about 10 to 14 days. There is no "cure" for the viral infection -- it must run its course. If there is a complication, such as bacterial infection in the nose, sinuses, middle ear, or bronchial tubes, antibiotics may be required. The antibiotics won't affect the virus. Drink plenty of fluids. A humidifier may help. An expectorant medication or decongestant may make you more comfortable. Use acetaminophen or ibuprofen for fever or aches. See the doctor if fever persists over two days, if there is any significant worsening of your symptoms, or if you simply fail to improve as expected. BRONCHOSPASM: You have tightness in the bronchial tubes, called bronchospasm. This often occurs with bronchial infections. Allergies, inhaled chemicals, and polluted or cold air can also provoke bronchospasm. It's more likely in patients with asthma in the family. Emergency treatment of bronchospasm may include adrenaline shots or bronchodilator aerosol. You may feel lightheaded and have a rapid pulse for an hour or two. Rest and get plenty of fluids. At home, we'll treat you with a bronchodilator inhaler. Antibiotics and corticosteroids may be required for some patients. Until you recover, avoid chemical fumes, dusts, pollens, and exercising in very cold or dry air. If you smoke, stop now!! If you develop a fever, increased wheezing, chest pain, or severe shortness of breath, you should contact the doctor immediately. INHALED BRONCHODILATORS: You have received a treatment of and/or prescription for an inhaled bronchodilator -- a medication which stimulates the airways in the lung to dilate. This improves the flow of air in asthma, bronchitis, and emphysema. These medicines have some similarity to adrenaline, and can cause similar side effects: shakiness, racing heart, and a sense of nervousness. These side effects decrease with time. Contact your doctor if these side effects are severe. Do not over-use the medicine. Too-frequent use of the inhaler may make it ineffective. Call your doctor if the inhaler is not controlling your symptoms at the prescribed doses. STEROID MEDICATION: You have been given an injection of or oral medicine of the cortisone/ steroid class. This medication is used to control inflammation or allergy. Chance t is usually only given for a short period of time, until the acute process subsides. There are usually no side effects from short-term use of cortisone-like medications. Some persons feel an increased sense of well-being and are not sleepy at bedtime. Long-term use of cortisone medications is best avoided, unless required for a severe condition. If your condition does not remit, or relapses after the course of corticosteroid medication, you should consult your physician. SMOKING: If you smoke, you should stop smoking. The tar and chemicals in cigarette smoke are harmful. Smoking has been shown to cause: emphysema chronic bronchitis lung cancer mouth and throat cancer stomach and pancreas cancer premature aging defects In addition, smoking increases ear and lung infections in children of smokers. FOLLOW-UP CARE: If you have been referred to a physician for follow-up care, call the physician s office for an appointment as you were instructed or within the next two days. If you experience worsening or a significant change in your symptoms, notify the physician immediately or return to the Emergency Department at any time for re-evaluation. Prescriptions: Albuterol Sulfate [Albuterol Sulfate 2.5mg/3 mL] 1 vial IH Q4 PRN #25 vial PRN Reason: Prednisone [Deltasone 10 mg Tablet] 10 mg PO ASDIR PRN #21 tablet PRN Reason: Referrals: MATT MATHIAS DO [Primary Care Provider] - Follow up as needed
[2018-03-02 18:33] VITALS: BP 99/40
== END 2018-03-02 18:42 | disposition home or self-care (01) ==
LOC: ER 15:48
DX: J44.1 Chronic obstructive pulmonary disease with (acute) exacerbation (principal); R06.02 Shortness of breath; R05 Cough; F17.210 Nicotine dependence, cigarettes, uncomplicated; R50.9 Fever, unspecified; I10 Essential (primary) hypertension; I87.2 Venous insufficiency (chronic) (peripheral); Z88.1 Allergy status to other antibiotic agents
CPT/HCPCS: 94640; 99285; 71046; A9270; J7620

== ENCOUNTER 2018-03-05 01:35 | Inpatient (IN) | payer MEDICARE ==
[2018-03-05] MEDS ORDERED: METHYLPREDNISOLONE INJ 125 MG/2 ML SDV IV ONE (01:59)
[2018-03-05] MEDS ORDERED: IPRATROPIUM/ALBUTEROL 0.5-2.5 MG/3 ML AMPUL NEB ONE (01:59)
[2018-03-05] MEDS ORDERED: BENZONATATE 100 MG CAPSULE PO ONE (02:00)
--- NOTE | 2018-03-05 02:14 | RADIOLOGY REPORT (SQ) ---
EXAM DESCRIPTION: Single view of the chest CLINICAL HISTORY: cough, sob COMPARISON: 03/02/2018 FINDINGS: Single frontal view of the chest. The cardiomediastinal silhouette has normal size and contour. No consolidation, pneumothorax, or pleural effusion. Diffuse overlie the chest. No displaced rib fractures identified. Upper abdominal soft tissues are unremarkable. IMPRESSION: 1. No acute pneumonic process identified.
[2018-03-05] MEDS ORDERED: LEVOFLOXACIN 750 MG/D5W RTU 750 MG/150 ML RTUPB IV ONE (02:22)
--- NOTE | 2018-03-05 02:22 | ER Document Report ---
ED General - General Chief Complaint: Breathing Difficulty Stated Complaint: TROUBLE BREATHING Time Seen by Provider: 03/05/18 01:59 Notes: Patient is a 57-year-old female with past medical history of morbid obesity, COPD with tobacco dependency but no baseline oxygen dependency who presents with 3-4 days of progressively worsening cough and shortness of breath. She was seen in the emergency department 2 days ago for the same, at that time just diagnosed with a COPD exacerbation and discharged home on oral steroids. She reports that despite taking the steroids as well as home nebulizer treatments she has not had any improvement of her symptoms she feels that she has become quite a bit worse since that time. She relates multiple sick contacts with similar symptoms. She states this does feel similar when she has had severe COPD exacerbations in the past. She has not seen her primary doctor regarding today's concerns. She cannot recall the last time she required hospitalization for her COPD. She has not had any fever or constitutional symptoms. TRAVEL OUTSIDE OF THE [place] IN LAST 30 DAYS: No - Related Data Allergies/Adverse Reactions: clindamycin Allergy (Verified 03/02/18 16:12) sulfamethoxazole [From Bactrim] Allergy (Verified 03/02/18 16:12) trimethoprim [From Bactrim] Allergy (Verified 03/02/18 16:12) vancomycin Allergy (Verified 03/02/18 16:12) Past Medical History - General Information source: Patient - Social History Smoking Status: Current Every Day Smoker Cigarette use (# per day): Yes - 1 pack per day Smoking Education Provided: Yes - Smoking cessation counseling was provided for 4 minutes at the bedside Frequency of alcohol use: None Drug Abuse: None Lives with: Spouse/Significant other Family History: Reviewed & Not Pertinent - Past Medical History Cardiac Medical History: Reports: Hx Congestive Heart Failure, Hx Hypertension Denies: Hx Coronary Artery Disease, Hx Heart Attack Pulmonary Medical History: Reports: Hx Bronchitis, Hx COPD - no home oxygen, Hx Pneumonia Denies: Hx Asthma, Hx Tuberculosis Neurological Medical History: Denies: Hx Cerebrovascular Accident, Hx Seizures Renal/ Medical History: Denies: Hx Peritoneal Dialysis Musculoskeltal Medical History: Reports Hx Arthritis Past Surgical History: Reports: Hx Cholecystectomy, Hx Hysterectomy, Hx Orthopedic Surgery - Bilateral feet screws. Denies: Hx Pacemaker - Immunizations Hx Diphtheria, Pertussis, Tetanus Vaccination: No Hx Pneumococcal Vaccination: 07/17/11 Review of Systems - Review of Systems Notes: Constitutional: Negative for fever. HENT: Negative for sore throat. Eyes: Negative for visual changes. Cardiovascular: Negative for chest pain. Respiratory: Positive for persistent cough and shortness of breath Gastrointestinal: Negative for abdominal pain, vomiting or diarrhea. Genitourinary: Negative for dysuria. Musculoskeletal: Negative for back pain. Skin: Negative for rash. Neurological: Negative for headaches, weakness or numbness. 10 point ROS negative except as marked above and in HPI. Physical Exam - Vital signs Vitals: Temp Pulse Resp BP Pulse Ox 98.5 F 101 H 24 H 149/71 H 91 L 03/05/18 01:53 03/05/18 01:53 03/05/18 01:53 03/05/18 01:53 03/05/18 01:53 Interpretation: Tachycardic, Hypoxic, Tachypneic Notes: PHYSICAL EXAMINATION: GENERAL: Morbidly obese female who appears older than stated age but in no acute distress HEAD: Atraumatic, normocephalic. EYES: Pupils equal round and reactive to light, extraocular movements intact, sclera anicteric, conjunctiva are normal. ENT: nares patent, oropharynx clear without exudates. Moderately dry mucous membranes. NECK: Normal range of motion, supple without lymphadenopathy LUNGS: Diffuse secretory wheezing in all lung gusman with globally diminished air movement throughout. Patient coughs vigorously with most all attempts at inspiration. HEART: Regular rate and rhythm without murmurs ABDOMEN: Soft, morbidly obese abdomen, nontender, normoactive bowel sounds. No guarding, no rebound. No masses appreciated. EXTREMITIES: Normal range of motion, no pitting or edema. No cyanosis. NEUROLOGICAL: No focal neurological deficits. Moves all extremities spontaneously and on command. PSYCH: Normal mood, normal affect. SKIN: Warm, Dry, normal turgor, changes consistent with chronic venous stasis in the bilateral lower extremities Course - Re-evaluation Re-evalutation: 03/05/18 02:21 Patient presents with an acute COPD exacerbation despite having home nebulizers and prednisone at home. She was hypoxic to 90% time of presentation, visibly tachypneic with poor air movement in all lung gusman and expiratory wheezing throughout. She has been started on duo nebulizers, IV Solu-Medrol, repeat chest x-ray without evidence of infiltrate. Will repeat laboratories but at this time point the patient will require hospitalization as she has not had improvement as an outpatient with appropriate therapy. 03/05/18 03:45 Patient's work of breathing has improved after multiple duo nebulizers. IV access has been established. I discussed this case with the hospitalist was accepted the patient for admission for a COPD exacerbation. - Vital Signs Vital signs: Temp Pulse Resp BP Pulse Ox 98.5 F 101 H 24 H 149/71 H 91 L 03/05/18 01:53 03/05/18 01:53 03/05/18 01:53 03/05/18 01:53 03/05/18 01:53 - Laboratory Result Diagrams: 03/05/18 03:14 03/05/18 03:14 Laboratory results interpreted by me: 03/05/18 03/05/18 03:14 03:14 Hgb 11.6 L Hct 35.5 L MCH 26.0 L RDW 17.0 H Potassium 3.2 L Glucose 112 H Discharge - Discharge Clinical Impression: COPD exacerbation, Tobacco dependence, Morbid obesity Condition: Fair Disposition: ADMITTED INPATIENT Admitting Provider: Hospitalist Unit Admitted: Telemetry Referrals: MATT MATHIAS DO [Primary Care Provider] - Follow up as needed
[2018-03-05 03:22] LABS: ABSOLUTE LYMPHOCYTES (AUTO) 1.5 10^3/uL (0.5-4.7); ABSOLUTE MONOCYTES (AUTO) 0.6 10^3/uL (0.1-1.4); BASOPHILS % (AUTO) 0.1 % (0-2); EOSINOPHILS % (AUTO) 0.5 % (0-6); HEMATOCRIT 35.5 % (36.0-47.0); HEMOGLOBIN 11.6 g/dL (12.0-15.5); LYMPHOCYTES % (AUTO) 24.3 % (13-45); MEAN CORPUSCULAR HGB CONC 32.8 g/dL (32.0-36.0); MEAN CORPUSCULAR VOLUME 80 fl (80-97); MONOCYTES % (AUTO) 9.8 % (3-13); PLATELET COUNT 187 10^3/uL (150-450); RED BLOOD COUNT 4.47 10^6/uL (3.72-5.28); SEGMENTED NEUTROPHILS % (AUTO) 65.3 % (42-78); TOTAL CELLS COUNTED % (AUTO) 100 %; WHITE BLOOD COUNT 6.1 10^3/uL (4.0-10.5)
[2018-03-05 03:39] LABS: ANION GAP 12 (5-19); BLOOD UREA NITROGEN 17 mg/dL (7-20); CARBON DIOXIDE 29 mmol/L (22-30); CHLORIDE 100 mmol/L (98-107); GLUCOSE 112 mg/dL (75-110); POTASSIUM 3.2 mmol/L (3.6-5.0); SODIUM 140.7 mmol/L (137-145)
[2018-03-05] MEDS ORDERED: ACETAMINOPHEN 325 MG TABLET PO PRN (03:47)
[2018-03-05] MEDS ORDERED: TEMAZEPAM 15 MG CAPSULE PO PRN (03:47)
[2018-03-05] MEDS ORDERED: PROMETHAZINE HCL 25 MG TABLET PO PRN (03:47)
[2018-03-05] MEDS ORDERED: AZITHROMYCIN INJ 500 MG VIAL IV PRN (03:59)
[2018-03-05] MEDS ORDERED: AZITHROMYCIN 500 MG in DEXTROSE 5%-WATER 250 ML IV ONE (04:00)
[2018-03-05] MEDS ORDERED: BUDESONIDE/FORMOTEROL 160-4.5 MCG 60 PUFF/6 GM MDI IH ONE (04:00)
--- NOTE | 2018-03-05 04:11 | PDOC H&P ---
History of Present Illness Admission Date/PCP: MATT MATHIAS DO History of Present Illness: DERECK PHELPS is a 57 year old female with multiple comorbidities including HTN, fibromyalgia, anxiety depression, restless leg syndrome, chronic back pain, morbid obesity and COPD presented with shortness of breath. Reports to several days history of shortness of breath for which she was seen at this hospital 2 days ago and sent home with oral prednisone. Despite taking steroid and using her home nebulizer patient continued to have worsening of her shortness of breath. She denies chills, fever, chest pain, palpitation or diaphoresis. She does not have any nausea, vomiting, abdominal pain or diarrhea. No urgency frequency or dysuria. Her blood work is unremarkable mild hypokalemia of 3.2. Past Medical History Cardiac Medical History: Reports: Congestive Heart Failure, Hypertension Denies: Coronary Artery Disease, Myocardial Infarction Pulmonary Medical History: Reports: Bronchitis, Chronic Obstructive Pulmonary Disease (COPD) - no home oxygen, Pneumonia Denies: Asthma, Tuberculosis Neurological Medical History: Denies: Seizures Musculoskeltal Medical History: Reports: Arthritis Hematology: Denies: Anemia Past Surgical History Past Surgical History: Reports: Cholecystectomy, Hysterectomy, Orthopedic Surgery - Bilateral feet screws Denies: Pacemaker Social History Lives with: Spouse/Significant other Smoking Status: Current Every Day Smoker Hx Recreational Drug Use: No Hx Prescription Drug Abuse: No - Advance Directive Resuscitation Status: Full Code Family History Family History: Reviewed & Not Pertinent, Hypertension Parental Family History Reviewed: Yes Children Family History Reviewed: Yes Sibling(s) Family History Reviewed.: Yes Medication/Allergy Home Medications: Alprazolam [Xanax 0.25 Mg Tablet] 0.25 mg PO BID 10/09/11 Lisinopril [Prinivil] 20 mg PO DAILY 10/09/11 Albuterol 2 puff IH Q4H 01/04/12 Furosemide [Lasix 40 mg Tablet] 40 mg PO BID #60 tablet 01/04/12 Potassium Chloride [Klor-Con 10 Meq Tablet.sa] 10 meq PO DAILY 01/04/12 Sertraline HCl [Zoloft] 100 mg PO DAILY 01/04/12 Topiramate [Topamax] 50 mg PO BID 01/04/12 Beclomethasone Dipropionate [Qvar] 7.3 gm IH BID 01/05/12 Budesonide/Formoterol Fumarate [Symbicort Hfa 160-4.5 Mcg Inhaler 6 Gm] 2 puff IH BID 01/05/12 Cyanocobalamin/FA/Pyridoxine [Foltx Tablet] 1 each PO DAILY 01/05/12 Meloxicam 15 mg PO DAILY 01/05/12 Omeprazole [Prilosec] 40 mg PO BID 01/05/12 Oxycodone HCl/Acetaminophen [Percocet 7.5-325 Mg Tablet] 1 each PO Q4 PRN Pramipexole Di-HCl [Mirapex] 1.5 mg PO TID 01/05/12 Pregabalin [Lyrica 50 Mg Capsule] 150 mg PO TID 01/05/12 Trazodone HCl 50 mg PO HSP PRN 01/05/12 Budesonide/Formoterol Fumarate [Symbicort Hfa 160-4.5 Mcg Inhaler 6 Gm] 2 puff IH BID 01/09/12 Morphine Sulfate [Morphine Ir 15 Mg Tablet] 15 mg PO Q4HP PRN #12 tablet Cephalexin Monohydrate [Keflex 500 mg Capsule] 500 mg PO QID #28 capsule Lidocaine [Lidoderm 5% (700 mg) Transdermal Patch] 1 patch TP DAILY #10 adh..patch 02/14/18 Naproxen [Naprosyn 250 mg Tablet] 500 mg PO Q12H PRN #30 tablet 02/14/18 Butenafine HCl [Lotrimin Ultra 1% Cream] 1 applic TP BID #1 tube 02/27/18 Doxycycline Hyclate 100 mg PO BID #14 tablet 02/27/18 Albuterol Sulfate [Albuterol Sulfate 2.5mg/3 mL] 1 vial IH Q4 PRN #25 vial 03/02 Prednisone [Deltasone 10 mg Tablet] 10 mg PO ASDIR PRN #21 tablet 03/02/18 Allergies/Adverse Reactions: clindamycin Allergy (Verified 03/02/18 16:12) sulfamethoxazole [From Bactrim] Allergy (Verified 03/02/18 16:12) trimethoprim [From Bactrim] Allergy (Verified 03/02/18 16:12) vancomycin Allergy (Verified 03/02/18 16:12) Review of Systems Constitutional: PRESENT: as per HPI Eyes: PRESENT: as per HPI Cardiovascular: PRESENT: as per HPI Respiratory: PRESENT: as per HPI Gastrointestinal: PRESENT: as per HPI Neurological: PRESENT: as per HPI Psychiatric: PRESENT: depression Physical Exam Vital Signs: Temp Pulse Resp BP Pulse Ox 98.5 F 101 H 24 H 149/71 H 91 L 03/05/18 01:53 03/05/18 01:53 03/05/18 01:53 03/05/18 01:53 03/05/18 01:53 Intake & Output 03/03/18 03/04/18 03/05/18 06:59 06:59 06:59 Weight 149.5 kg General appearance: PRESENT: mild distress Head exam: PRESENT: atraumatic, normocephalic Respiratory exam: PRESENT: wheezes Cardiovascular exam: PRESENT: tachycardia GI/Abdominal exam: PRESENT: other - Morbid abdomen Psychiatric exam: PRESENT: normal mood Results Laboratory Results: 03/05/18 03:14 03/05/18 03:14 03/05/18 03/05/18 03:14 03:14 WBC 6.1 RBC 4.47 Hgb 11.6 L Hct 35.5 L MCV 80 MCH 26.0 L MCHC 32.8 RDW 17.0 H Plt Count 187 Seg Neutrophils % 65.3 Lymphocytes % 24.3 Monocytes % 9.8 Eosinophils % 0.5 Basophils % 0.1 Absolute Neutrophils 4.0 Absolute Lymphocytes 1.5 Absolute Monocytes 0.6 Absolute Eosinophils 0.0 Absolute Basophils 0.0 Sodium 140.7 Potassium 3.2 L Chloride 100 Carbon Dioxide 29 Anion Gap 12 BUN 17 Creatinine 0.94 Est GFR ( Amer) > 60 Est GFR (Non-Af Amer) > 60 Glucose 112 H Calcium 9.0 Impressions: Chest X-Ray 03/05/18 01:59 IMPRESSION: 1. No acute pneumonic process identified. Assessment & Plan - Diagnosis (1) COPD exacerbation Is this a current diagnosis for this admission?: Yes Plan: Patient has been started on BiPAP, Solu-Medrol, Zithromax, Symbicort (2) Morbid obesity Is this a current diagnosis for this admission?: Yes Plan: Lifestyle modification advised. (3) Tobacco dependence Is this a current diagnosis for this admission?: Yes Plan: Patient counseled and encouraged to quit smoking - Inpatient Certification Medical Necessity: Need Close Monitoring Due to Risk of Patient Decompensation, Need for IV Antibiotics
[2018-03-05] MEDS ORDERED: HEPARIN SOD (PORCINE) 5,000 UNIT/ML 1 ML SYRINGE SUBCUT SCH (06:00)
[2018-03-05] MEDS: METHYLPREDNISOLONE INJ 40 MG/1 ML SDV IV SCH ×4 (06:25→22:25)
[2018-03-05] MEDS: LANSOPRAZOLE 30 MG TAB.RAP.DR PO SCH (06:33)
[2018-03-05] MEDS ORDERED: ALBUTEROL SULFATE 0.083% NEB 2.5 MG/3 ML AMPUL NEB PRN (08:32)
[2018-03-05] MEDS ORDERED: MORPHINE SULFATE IR 15 MG TABLET PO PRN (08:32)
[2018-03-05 09:29] LABS: PHOSPHORUS 3.7 mg/dL (2.5-4.5)
[2018-03-05] MEDS ORDERED: (PENDING PHARMACY ID) (Lisinopril [Prinivil 20 Mg Tablet] 20 MG) PO SCH (10:00)
[2018-03-05] MEDS ORDERED: MELOXICAM 15 MG TABLET PO SCH (10:00)
[2018-03-05] MEDS ORDERED: PYRIDOXINE PO SCH (10:00)
[2018-03-05] MEDS ORDERED: BUDESONIDE/FORMOTEROL 160-4.5 MCG 60 PUFF/6 GM MDI IH SCH (10:00)
[2018-03-05] MEDS ORDERED: FUROSEMIDE 40 MG TABLET PO SCH (10:00)
[2018-03-05] MEDS ORDERED: BECLOMETHASONE DIPROPIONATE IH SCH (10:00)
[2018-03-05] MEDS ORDERED: POTASSIUM CHLORIDE 10 MEQ TABLET.SA PO SCH (10:00)
[2018-03-05] MEDS ORDERED: CYANOCOBALAMIN PO SCH (10:00)
[2018-03-05] MEDS ORDERED: [UNRECOGNIZED DRUG - OTHER] PO SCH (10:00)
[2018-03-05] MEDS ORDERED: LIDOCAINE 5% (700 MG) TRANSDERMAL ADH..PATCH TP SCH (10:00)
[2018-03-05] MEDS ORDERED: (PENDING PHARMACY ID) (Oxycodone Hcl/Acetaminophen [Percocet 7.5-325 Mg Tablet] 1 EACH) PO PRN (13:00)
[2018-03-05] MEDS ORDERED: POLYVINYL ALCOHOL 1.4% OPH SOLN 15 ML OD PRN (13:03)
--- NOTE | 2018-03-05 13:21 | PDOC PROGRESS REPORT ---
Subjective Progress Note for:: 03/05/18 Subjective:: 57 yr old female with past medical history of Hypertension Fibromyalgia Anxiety Depression Restless leg syndrome Chronic back pain Opiate dependence, continuous use Morbid obesity COPD not on home oxygen One pack per day smoker Diastolic CHF She presented to the hospital with shortness of breath and cough. She denies any fevers chills chest pain or palpitations. She did have some rhinorrhea and sore throat. The patient was started on steroids antibiotics and neb treatments for COPD exacerbation. Reason For Visit: COPD EXACERBATION Physical Exam Vital Signs: Temp Pulse Resp BP Pulse Ox 98.6 F 96 20 138/62 H 96 03/05/18 11:19 03/05/18 11:19 03/05/18 11:19 03/05/18 11:54 03/05/18 11:19 Intake & Output 03/04/18 03/05/18 03/06/18 06:59 06:59 06:59 Intake Total 375 Balance 375 Weight 150.3 kg General appearance: PRESENT: no acute distress, obese Head exam: PRESENT: normocephalic Eye exam: ABSENT: scleral icterus Ear exam: PRESENT: normal external ear exam Mouth exam: PRESENT: moist Neck exam: ABSENT: tracheal deviation Respiratory exam: PRESENT: symmetrical, wheezes Cardiovascular exam: PRESENT: RRR GI/Abdominal exam: PRESENT: normal bowel sounds, soft. ABSENT: tenderness Rectal exam: PRESENT: deferred Gentrourinary exam: ABSENT: indwelling catheter Extremities exam: PRESENT: other - Chronic venous stasis changes bilateral lower extremities. ABSENT: pedal edema Neurological exam: PRESENT: alert, awake, oriented to person, oriented to place , oriented to time, oriented to situation Psychiatric exam: PRESENT: appropriate affect Skin exam: ABSENT: petechiae Results Laboratory Results: 03/05/18 04:53 Carbonic Acid Cancelled HCO3/H2CO3 Ratio Cancelled ABG pH Cancelled ABG pCO2 Cancelled ABG pO2 Cancelled ABG HCO3 Cancelled ABG O2 Saturation Cancelled ABG Base Excess Cancelled FiO2 Cancelled Impressions: Chest X-Ray 03/05/18 01:59 IMPRESSION: 1. No acute pneumonic process identified. Assessment & Plan - Diagnosis (1) COPD exacerbation Is this a current diagnosis for this admission?: Yes Plan: Continue supplemental oxygen, Azithromycin, steroids, nebs, mucinex. (2) Hypertension Is this a current diagnosis for this admission?: Yes Plan: Monitor BP, continue Lisinopril. (3) Fibromyalgia Is this a current diagnosis for this admission?: Yes Plan: Continue outpatient meds including Lyrica, Topamax, Oxycodone prn (4) Chronic diastolic heart failure Is this a current diagnosis for this admission?: Yes Plan: Stable, continue Lasix (5) Morbid obesity Is this a current diagnosis for this admission?: Yes Plan: calorie control (6) Tobacco dependence Is this a current diagnosis for this admission?: Yes Plan: Nicotine patch (7) Hypokalemia Is this a current diagnosis for this admission?: Yes Plan: Replace - Time Time Spent with patient: 35 or more minutes
[2018-03-05] MEDS ORDERED: (PENDING PHARMACY ID) (Pramipexole Di-Hcl [Mirapex] 1.5 MG) PO SCH (14:00)
[2018-03-05] MEDS ORDERED: NICOTINE 21 MG/24 HR PATCH.TD24 TD ONE (14:30)
[2018-03-05] MEDS ORDERED: NAPROXEN 250 MG TABLET PO PRN (15:25)
[2018-03-05] MEDS ORDERED: (PENDING PHARMACY ID) (Mirabegron [Myrbetriq] 50 MG) PO SCH (15:30)
[2018-03-05] MEDS: PREGABALIN 50 MG CAPSULE PO SCH ×2 (16:00→22:27)
[2018-03-05] MEDS: OXYCODONE-ACETAMINOPHEN 5-325 MG TABLET PO PRN ×2 (16:01→22:26)
--- NOTE | 2018-03-05 16:19 | EKG REPORT ---
SEVERITY:- ABNORMAL ECG - SINUS RHYTHM PROBABLE INFERIOR INFARCT, OLD : Confirmed by: Andree Terry 05-Mar-2018 16:18:11
[2018-03-05] MEDS: LACTOBACILLUS ACIDOPHILUS 250 MG TAB PO SCH (17:17)
[2018-03-05] MEDS: MELOXICAM 7.5 MG TABLET PO SCH (17:18)
[2018-03-05] MEDS: VENLAFAXINE HCL 75 MG CAP.SR.24H PO SCH (17:18)
[2018-03-05] MEDS: NYSTATIN CREAM 15 GM TP SCH ×2 (17:19→22:29)
[2018-03-05] MEDS ORDERED: ALPRAZOLAM 0.25 MG TABLET PO SCH (18:00)
[2018-03-05] MEDS ORDERED: (PENDING PHARMACY ID) (Diclofenac Sodium [Voltaren] 4 GM) TP SCH (18:00)
[2018-03-05] MEDS ORDERED: (PENDING PHARMACY ID) (Topiramate [Topamax] 100 MG) PO SCH (22:00)
[2018-03-05] MEDS: TOLTERODINE TARTRATE 1 MG TABLET PO SCH (22:26)
[2018-03-05] MEDS: GUAIFENESIN 600 MG TABLET.SA PO SCH (22:26)
[2018-03-05] MEDS: TRAZODONE HCL 50 MG TABLET PO SCH (22:26)
[2018-03-06] MEDS: PREGABALIN 50 MG CAPSULE PO SCH ×3 (05:11→22:36)
[2018-03-06] MEDS: LANSOPRAZOLE 30 MG TAB.RAP.DR PO SCH (05:11)
[2018-03-06] MEDS: OXYCODONE-ACETAMINOPHEN 5-325 MG TABLET PO PRN ×3 (05:12→22:36)
[2018-03-06] MEDS: METHYLPREDNISOLONE INJ 40 MG/1 ML SDV IV SCH ×3 (05:12→22:36)
[2018-03-06 05:43] LABS: ANION GAP 13 (5-19); BLOOD UREA NITROGEN 14 mg/dL (7-20); CALCIUM 9.6 mg/dL (8.4-10.2); CARBON DIOXIDE 24 mmol/L (22-30); CHLORIDE 107 mmol/L (98-107); GLUCOSE 137 mg/dL (75-110); POTASSIUM 3.8 mmol/L (3.6-5.0); SODIUM 144.1 mmol/L (137-145)
[2018-03-06] MEDS: TOLTERODINE TARTRATE 1 MG TABLET PO SCH ×2 (09:37→22:36)
[2018-03-06] MEDS: NICOTINE 21 MG/24 HR PATCH.TD24 TD SCH (09:37)
[2018-03-06] MEDS: AZITHROMYCIN 250 MG TABLET PO SCH (09:37)
[2018-03-06] MEDS: GUAIFENESIN 600 MG TABLET.SA PO SCH ×2 (09:37→22:36)
[2018-03-06] MEDS: LACTOBACILLUS ACIDOPHILUS 250 MG TAB PO SCH ×3 (09:37→17:38)
[2018-03-06] MEDS: NYSTATIN CREAM 15 GM TP SCH ×4 (09:37→22:37)
[2018-03-06] MEDS: MULTIVITAMIN TABLET PO SCH (09:37)
[2018-03-06] MEDS ORDERED: AZITHROMYCIN 500 MG in DEXTROSE 5%-WATER 250 ML IV SCH (10:00)
[2018-03-06] MEDS ORDERED: TOPIRAMATE 100 MG TABLET PO SCH (10:00)
[2018-03-06] MEDS ORDERED: (PENDING PHARMACY ID) (Solifenacin Succinate [Vesicare] 10 MG) PO SCH (10:00)
[2018-03-06] MEDS ORDERED: CALCIPOTRIENE TP SCH (10:00)
--- NOTE | 2018-03-06 14:45 | PDOC PROGRESS REPORT ---
Subjective Progress Note for:: 03/06/18 Subjective:: 57 yr old female with past medical history of Hypertension Fibromyalgia Anxiety Depression Restless leg syndrome Chronic back pain Opiate dependence, continuous use Morbid obesity COPD not on home oxygen One pack per day smoker Diastolic CHF She presented to the hospital with shortness of breath and cough. She denies any fevers chills chest pain or palpitations. She did have some rhinorrhea and sore throat. The patient was started on steroids antibiotics and neb treatments for COPD exacerbation. She reports feeling better today. Reason For Visit: COPD EXACERBATION Physical Exam Vital Signs: Temp Pulse Resp BP Pulse Ox 97.5 F 85 20 124/71 94 03/06/18 10:50 03/06/18 14:00 03/06/18 10:50 03/06/18 10:50 03/06/18 10:50 Intake & Output 03/05/18 03/06/18 03/07/18 06:59 06:59 06:59 Intake Total 1612 425 Balance 1612 425 Weight 150.3 kg 148 kg 148 kg General appearance: PRESENT: obese Head exam: PRESENT: normocephalic Eye exam: ABSENT: scleral icterus Ear exam: PRESENT: normal external ear exam Mouth exam: PRESENT: moist Respiratory exam: PRESENT: rhonchi, symmetrical, unlabored. ABSENT: crackles Cardiovascular exam: PRESENT: RRR GI/Abdominal exam: PRESENT: normal bowel sounds, soft. ABSENT: tenderness Rectal exam: PRESENT: deferred Extremities exam: ABSENT: pedal edema Neurological exam: PRESENT: alert, awake, oriented to person, oriented to place , oriented to time, oriented to situation Psychiatric exam: PRESENT: appropriate affect Skin exam: ABSENT: rash Results Laboratory Results: 03/06/18 04:50 03/06/18 04:50 Sodium 144.1 Potassium 3.8 Chloride 107 Carbon Dioxide 24 Anion Gap 13 BUN 14 Creatinine 0.79 Est GFR ( Amer) > 60 Est GFR (Non-Af Amer) > 60 Glucose 137 H Calcium 9.6 Magnesium 2.4 H Impressions: Chest X-Ray 03/05/18 01:59 IMPRESSION: 1. No acute pneumonic process identified. Assessment & Plan - Diagnosis (1) COPD exacerbation Is this a current diagnosis for this admission?: Yes Plan: Continue supplemental oxygen, Azithromycin, steroids, nebs, mucinex. Check sats on RA with ambulation (2) Hypertension Is this a current diagnosis for this admission?: Yes Plan: Monitor BP, continue Lisinopril. (3) Fibromyalgia Is this a current diagnosis for this admission?: Yes Plan: Continue outpatient meds including Lyrica, Topamax, Oxycodone prn (4) Chronic diastolic heart failure Is this a current diagnosis for this admission?: Yes Plan: Stable, not in exacerbation. Continue Lasix (5) Morbid obesity Is this a current diagnosis for this admission?: Yes Plan: Calorie control (6) Tobacco dependence Is this a current diagnosis for this admission?: Yes Plan: Nicotine patch (7) Hypokalemia Is this a current diagnosis for this admission?: Yes Plan: Replaced - Time Time Spent with patient: 25-34 minutes
[2018-03-06] MEDS: MELOXICAM 7.5 MG TABLET PO SCH (17:04)
[2018-03-06] MEDS: VENLAFAXINE HCL 75 MG CAP.SR.24H PO SCH (17:04)
[2018-03-06] MEDS ORDERED: ACETAMINOPHEN WITH CODEINE #3 TABLET PO PRN (17:07)
[2018-03-06] MEDS: GUAIFENESIN/D-METHORPHAN (200-20 MG) SYRUP 10 ML PO PRN ×2 (17:38→23:36)
[2018-03-06] MEDS: TRAZODONE HCL 50 MG TABLET PO SCH (22:36)
[2018-03-07] MEDS: OXYCODONE-ACETAMINOPHEN 5-325 MG TABLET PO PRN (04:41)
[2018-03-07] MEDS: LANSOPRAZOLE 30 MG TAB.RAP.DR PO SCH (05:16)
[2018-03-07] MEDS: PREGABALIN 50 MG CAPSULE PO SCH (05:16)
[2018-03-07] MEDS: METHYLPREDNISOLONE INJ 40 MG/1 ML SDV IV SCH (05:18)
[2018-03-07] MEDS ORDERED: IPRATROPIUM/ALBUTEROL 0.5-2.5 MG/3 ML AMPUL NEB ONE (05:30)
[2018-03-07 05:49] LABS: ANION GAP 10 (5-19); BLOOD UREA NITROGEN 20 mg/dL (7-20); CALCIUM 9.6 mg/dL (8.4-10.2); CARBON DIOXIDE 27 mmol/L (22-30); CHLORIDE 108 mmol/L (98-107); GLUCOSE 110 mg/dL (75-110); POTASSIUM 3.8 mmol/L (3.6-5.0); SODIUM 145.2 mmol/L (137-145)
[2018-03-07] MEDS ORDERED: PREDNISONE 20 MG TABLET PO SCH (08:00)
[2018-03-07] MEDS ORDERED: IPRATROPIUM/ALBUTEROL 0.5-2.5 MG/3 ML AMPUL NEB SCH (08:00)
[2018-03-07 08:21] VITALS: BP 132/75
[2018-03-07] MEDS: GUAIFENESIN 600 MG TABLET.SA PO SCH (09:21)
[2018-03-07] MEDS: AZITHROMYCIN 250 MG TABLET PO SCH (09:21)
[2018-03-07] MEDS: LACTOBACILLUS ACIDOPHILUS 250 MG TAB PO SCH (09:22)
[2018-03-07] MEDS: TOLTERODINE TARTRATE 1 MG TABLET PO SCH (09:22)
[2018-03-07] MEDS: NICOTINE 21 MG/24 HR PATCH.TD24 TD SCH (09:22)
[2018-03-07] MEDS: MULTIVITAMIN TABLET PO SCH (09:22)
[2018-03-07] MEDS: NYSTATIN CREAM 15 GM TP SCH (09:25)
--- NOTE | 2018-03-17 18:27 | PDOC DISCHARGE SUMMARY ---
General - Admit/Disc Date/PCP Admission Date/Primary Care Provider: 03/05/18 04:02 MATT LIMATE, Discharge Date: 03/07/18 - Discharge Diagnosis (1) COPD exacerbation Is this a current diagnosis for this admission?: Yes (2) Hypertension Is this a current diagnosis for this admission?: Yes (3) Fibromyalgia Is this a current diagnosis for this admission?: Yes (4) Chronic diastolic heart failure Is this a current diagnosis for this admission?: Yes (5) Morbid obesity Is this a current diagnosis for this admission?: Yes (6) Tobacco dependence Is this a current diagnosis for this admission?: Yes (7) Hypokalemia Is this a current diagnosis for this admission?: Yes - Additional Information Resuscitation Status: Full Code Discharge Diet: Cardiac Discharge Activity: Activity As Tolerated Prescriptions: Albuterol Sulfate [Ventolin HFA MDI 18 GM] 1 - 2 puff IH Q4H PRN #1 mdi PRN Reason: Fluticasone/Salmeterol [Advair 100-50 Diskus 28 Dose] 1 inh IH Q12H #1 inhaler Lactobacillus Acidophilus [Bacid 250 mg Tablet] 500 mg PO BID 5 Days #10 tab Nicotine [Nicoderm 21 mg/24 Hr Transderm Patch] 1 each TD DAILY 90 Days #90 patch.td24 Prednisone [Deltasone 20 mg Tablet] 60 mg PO DAILY #13 tablet Home Medications: Topiramate [Topamax] 100 mg PO QHS 01/04/12 Pregabalin [Lyrica 50 mg Capsule] 150 mg PO TID 01/05/12 Calcipotriene [Dovonex] 1 applic TP DAILY 03/05/18 Diclofenac Sodium [Voltaren] 4 gm TP QID 03/05/18 Meloxicam [Mobic] 7.5 mg PO DAILY 03/05/18 Mirabegron [Myrbetriq] 50 mg PO DAILY 03/05/18 Multivitamin [Tab-A-Princess (Multiple Vitamin) Tablet] 1 tab PO DAILY 03/05/18 Naproxen [Naprosyn 250 mg Tablet] 500 mg PO Q12HP PRN 03/05/18 Nystatin [Mycostatin Cream 15 gm] 1 applic TP QID 03/05/18 Oxycodone HCl/Acetaminophen [Percocet 5-325 mg Tablet] 1 tab PO Q6HP PRN Solifenacin Succinate [Vesicare] 10 mg PO DAILY 03/05/18 Trazodone HCl [Desyrel 50 mg Tablet] 50 mg PO QHS 03/05/18 Venlafaxine HCl ER [Effexor Xr 75 mg Cap.sr] 150 mg PO QPM 03/05/18 Albuterol Sulfate [Ventolin HFA MDI 18 GM] 1 - 2 puff IH Q4H PRN #1 mdi Fluticasone/Salmeterol [Advair 100-50 Diskus 28 Dose] 1 inh IH Q12H #1 inhaler 03/07/18 Guaifenesin/D-Methorphan Hb [Robitussin-Dm Syrup 10 ml Udcup] 10 ml PO QIDP PRN syrup 03/07/18 Lactobacillus Acidophilus [Bacid 250 mg Tablet] 500 mg PO BID 5 Days #10 tab Nicotine [Nicoderm 21 mg/24 Hr Transderm Patch] 1 each TD DAILY 90 Days #90 patch.td24 03/07/18 Polyvinyl Alcohol [Liquitears 1.4% Ophth Soln 15 ml] 1 drop OD Q4HP PRN bottle 03/07/18 Prednisone [Deltasone 20 mg Tablet] 60 mg PO DAILY #13 tablet 03/07/18 History of Present Illness Patient complains of: Dyspnea History of Present Illness: 57 yr old female with past medical history of Hypertension Fibromyalgia Anxiety Depression Restless leg syndrome Chronic back pain Opiate dependence, continuous use Morbid obesity COPD not on home oxygen One pack per day smoker Diastolic CHF She presented to the hospital with shortness of breath and cough. She denies any fevers chills chest pain or palpitations. She did have some rhinorrhea and sore throat. The patient was started on steroids antibiotics and neb treatments for COPD exacerbation. She improved and was discharged home on 03/07/18 Hospital Course Hospital Course: As above Physical Exam Vital Signs: Temp Pulse Resp BP Pulse Ox 97.3 F 91 22 H 132/75 H 95 03/07/18 09:45 03/07/18 09:45 03/07/18 09:45 03/07/18 09:45 03/07/18 09:45 General appearance: PRESENT: no acute distress Respiratory exam: PRESENT: rhonchi, symmetrical, unlabored Results Laboratory Results: 03/07/18 04:08 Impressions: Chest X-Ray 03/05/18 01:59 IMPRESSION: 1. No acute pneumonic process identified. Qualifiers - * PATIENT BEING DISCHARGED WITH ANY OF THE FOLLOWING DIAGNOSIS: No Plan Time Spent: Greater than 30 Minutes
== END 2018-03-07 10:09 | disposition home or self-care (01) | DRG 191 ==
LOC: ER 01:35 → EH 04:02 → 3N 07:02
PROVIDERS: ADMIT Internal Medicine; ATTEND Internal Medicine
PROC: 5A09357 Assistance with Respiratory Ventilation, Less than 24 Consecutive Hours, Continuous Positive Airway Pressure (ICD-10-PCS; principal; 2018-03-05)
DX: J44.1 Chronic obstructive pulmonary disease with (acute) exacerbation (principal); Z68.43 Body mass index [BMI] 50.0-59.9, adult; I50.32 Chronic diastolic (congestive) heart failure; M79.7 Fibromyalgia; F41.8 Other specified anxiety disorders; G25.81 Restless legs syndrome; G89.29 Other chronic pain; M54.9 Dorsalgia, unspecified; E66.01 Morbid (severe) obesity due to excess calories; I11.0 Hypertensive heart disease with heart failure; M19.90 Unspecified osteoarthritis, unspecified site; F17.210 Nicotine dependence, cigarettes, uncomplicated; E87.6 Hypokalemia; F41.9 Anxiety disorder, unspecified; F32.9 Major depressive disorder, single episode, unspecified; Z79.52 Long term (current) use of systemic steroids; Z79.899 Other long term (current) drug therapy; Z90.49 Acquired absence of other specified parts of digestive tract; Z90.710 Acquired absence of both cervix and uterus; Z88.3 Allergy status to other anti-infective agents; Z88.2 Allergy status to sulfonamides; Z99.81 Dependence on supplemental oxygen; Z79.891 Long term (current) use of opiate analgesic; Z82.49 Family history of ischemic heart disease and other diseases of the circulatory system
CPT/HCPCS: 36415; 71045; 71046; 80048; 83036; 83735; 83880; 84100; 85025; 87040; 93005; 93010; 94640; 94667; 94799; 99285; J0456; J1644; J1956; J2920; J2930; J3490; J7060; J7512; J7620

== ENCOUNTER 2018-05-02 12:10 | Observation (INO) | payer MEDICARE ==
--- NOTE | 2018-05-02 12:44 | ER Document Report ---
ED Medical Screen (RME) - General Chief Complaint: Leg Pain Stated Complaint: LEG PAIN Time Seen by Provider: 05/02/18 12:39 Notes: RAPID MEDICAL EVALUATION DISCLOSURE I have seen this patient as part of a Rapid Medical Evaluation and, if applicable, placed any initially appropriate orders. The patient will be seen and fully evaluated, including a full history and physical exam, by a provider ( in Main ED or Fast Track) when a room becomes available. 57-year-old female PMH CHF here with complaints of bilateral leg swelling ongoing for the past 1 week and shortness of breath ongoing for the past few days worse with exertion and laying flat. She did have some severe chest pain 1 week ago however has not had any since then. She has not missed any doses of her diuretics and cannot understand why her leg swelling is getting worse. She also complains of some chronic left knee pain which is not improving with her 10 mg oxycodone. EXAM BLEs 2+ pitting edema TRAVEL OUTSIDE OF THE [place] IN LAST 30 DAYS: No - Related Data Allergies/Adverse Reactions: clindamycin Allergy (Verified 03/02/18 16:12) sulfamethoxazole [From Bactrim] Allergy (Verified 03/02/18 16:12) trimethoprim [From Bactrim] Allergy (Verified 03/02/18 16:12) vancomycin Allergy (Verified 03/02/18 16:12) Past Medical History - Past Medical History Cardiac Medical History: Reports: Hx Congestive Heart Failure, Hx Hypertension Denies: Hx Coronary Artery Disease, Hx Heart Attack Pulmonary Medical History: Reports: Hx Bronchitis, Hx COPD - no home oxygen, Hx Pneumonia Denies: Hx Asthma, Hx Tuberculosis Neurological Medical History: Denies: Hx Cerebrovascular Accident, Hx Seizures Renal/ Medical History: Denies: Hx Peritoneal Dialysis Musculoskeltal Medical History: Reports Hx Arthritis Psychiatric Medical History: Reports: Hx Depression Past Surgical History: Reports: Hx Cholecystectomy, Hx Hysterectomy, Hx Orthopedic Surgery - Bilateral feet screws. Denies: Hx Pacemaker - Immunizations Hx Diphtheria, Pertussis, Tetanus Vaccination: No Physical Exam - Vital signs Vitals: Temp Pulse Resp BP Pulse Ox 98.0 F 100 20 150/63 H 94 05/02/18 12:19 05/02/18 12:19 05/02/18 12:19 05/02/18 12:19 05/02/18 12:19 Course - Vital Signs Vital signs: Temp Pulse Resp BP Pulse Ox 98.0 F 100 20 150/63 H 94 05/02/18 12:19 05/02/18 12:19 05/02/18 12:19 05/02/18 12:19 05/02/18 12:19 Doctor's Discharge - Discharge Referrals: MATT MATHIAS DO [Primary Care Provider] - Follow up as needed
[2018-05-02 13:26] LABS: ABSOLUTE EOSINOPHILS # (AUTO) 0.2 10^3/uL (0.0-0.6); ABSOLUTE LYMPHOCYTES (AUTO) 1.9 10^3/uL (0.5-4.7); ABSOLUTE MONOCYTES (AUTO) 0.4 10^3/uL (0.1-1.4); ABSOLUTE NEUT (AUTO) 3.8 10^3/uL (1.7-8.2); BASOPHILS % (AUTO) 0.4 % (0-2); EOSINOPHILS % (AUTO) 3.3 % (0-6); HEMATOCRIT 36.6 % (36.0-47.0); HEMOGLOBIN 11.8 g/dL (12.0-15.5); LYMPHOCYTES % (AUTO) 30.1 % (13-45); MEAN CORPUSCULAR HEMOGLOBIN 26.1 pg (27.0-33.4); MEAN CORPUSCULAR HGB CONC 32.3 g/dL (32.0-36.0); MEAN CORPUSCULAR VOLUME 81 fl (80-97); MONOCYTES % (AUTO) 6.1 % (3-13); PLATELET COUNT 223 10^3/uL (150-450); RED BLOOD COUNT 4.52 10^6/uL (3.72-5.28); RED CELL DISTRIBUTION WIDTH 17.8 % (11.5-14.0); SEGMENTED NEUTROPHILS % (AUTO) 60.1 % (42-78); TOTAL CELLS COUNTED % (AUTO) 100 %; WHITE BLOOD COUNT 6.3 10^3/uL (4.0-10.5)
--- NOTE | 2018-05-02 13:43 | RADIOLOGY REPORT (SQ) ---
EXAM DESCRIPTION: CHEST 2 VIEWS COMPLETED DATE/TIME: 05/02/2018 1:32 pm REASON FOR STUDY: CP SOB leg swelling; eval edema pna etc COMPARISON: None. EXAM PARAMETERS: NUMBER OF VIEWS: two views TECHNIQUE: Digital Frontal and Lateral radiographic views of the chest acquired. RADIATION DOSE: NA LIMITATIONS: none FINDINGS: LUNGS AND PLEURA: No opacities, masses or pneumothorax. No pleural effusion. MEDIASTINUM AND HILAR STRUCTURES: No masses or contour abnormalities. HEART AND VASCULAR STRUCTURES: Heart normal size. No evidence for failure. BONES: No acute findings. HARDWARE: None in the chest. OTHER: No other significant finding. IMPRESSION: NO ACUTE RADIOGRAPHIC FINDING IN THE CHEST. TECHNICAL DOCUMENTATION: JOB ID: [id number] [employer]- All Rights Reserved Reading location - IP/workstation name: [email or web address]
[2018-05-02 13:47] LABS: ALANINE AMINOTRANSFERASE 28 U/L (9-52); ALBUMIN 3.7 g/dL (3.5-5.0); ALKALINE PHOSPHATASE 74 U/L (38-126); ANION GAP 12 (5-19); ASPARTATE AMINO TRANSFERASE 23 U/L (14-36); BILIRUBIN,DIRECT 0.3 mg/dL (0.0-0.4); BILIRUBIN,TOTAL 0.3 mg/dL (0.2-1.3); BLOOD UREA NITROGEN 9 mg/dL (7-20); CALCIUM 9.2 mg/dL (8.4-10.2); CARBON DIOXIDE 23 mmol/L (22-30); CHLORIDE 110 mmol/L (98-107); GLUCOSE 106 mg/dL (75-110); POTASSIUM 4.3 mmol/L (3.6-5.0); SODIUM 144.7 mmol/L (137-145); TOTAL PROTEIN 6.9 g/dL (6.3-8.2)
[2018-05-02 13:57] LABS: NT PRO BNP 501 pg/mL (5-900)
[2018-05-02 13:59] LABS: TROPONIN I < 0.012 ng/mL
[2018-05-02] MEDS ORDERED: ALBUTEROL SULFATE 0.083% NEB 2.5 MG/3 ML AMPUL NEB ONE (14:33)
[2018-05-02] MEDS ORDERED: OXYCODONE-ACETAMINOPHEN 5-325 MG TABLET PO ONE (14:33)
--- NOTE | 2018-05-02 14:38 | ER Document Report ---
ED General - General Mode of Arrival: Ambulatory Information source: Patient TRAVEL OUTSIDE OF THE [place] IN LAST 30 DAYS: No <CECILIA STONE - Last Filed: 05/03/18 00:21> <ANETTE FITZGERALD - Last Filed: 05/03/18 00:23> - General Chief Complaint: Leg Pain Stated Complaint: LEG PAIN Time Seen by Provider: 05/02/18 12:39 Notes: Patient is a 57 year old female with CHF, HTN and a history of DVTs presents to the emergency department complaining of multiple symptoms including bilateral lower extremity swelling, left knee pain, shortness of breath, and chest pain. Patient states she has had intermittent shortness of breath for the last week. She states the shortness of breath is exacerbated when supine and walking. Patient describes her left knee pain as an intermittent tightness. She states she has taken 10 mg of Oxycodone with no relief. Patient also reports severe mid sternal chest pain onset 1 week ago. She states she has not had similar chest pain in the past. Patient was previously prescribed Coumadin for her DVTs. She is currently taking 40 mg of Lasix daily. Her PCP is Dr. Wilkes. (CECILIA STONE) - Related Data Allergies/Adverse Reactions: clindamycin Allergy (Verified 03/02/18 16:12) sulfamethoxazole [From Bactrim] Allergy (Verified 03/02/18 16:12) trimethoprim [From Bactrim] Allergy (Verified 03/02/18 16:12) vancomycin Allergy (Verified 03/02/18 16:12) Past Medical History - General Information source: Patient - Social History Smoking Status: Current Every Day Smoker Family History: Reviewed & Not Pertinent, Hypertension, Malignancy, Other - NE Patient has suicidal ideation: No Patient has homicidal ideation: No - Past Medical History Cardiac Medical History: Reports: Hx Congestive Heart Failure, Hx Hypertension Pulmonary Medical History: Reports: Hx Bronchitis, Hx COPD - no home oxygen, Hx Pneumonia Musculoskeletal Medical History: Reports Hx Arthritis Psychiatric Medical History: Reports: Hx Depression Past Surgical History: Reports: Hx Cholecystectomy, Hx Hysterectomy, Hx Orthopedic Surgery - Bilateral feet screws - Immunizations Hx Diphtheria, Pertussis, Tetanus Vaccination: No Hx Pneumococcal Vaccination: 07/17/11 <CECILIA STONE - Last Filed: 05/03/18 00:21> Review of Systems - Review of Systems Constitutional: No symptoms reported EENT: No symptoms reported Cardiovascular: See HPI, Chest pain Respiratory: See HPI, Short of breath Gastrointestinal: No symptoms reported Genitourinary: No symptoms reported Female Genitourinary: No symptoms reported Musculoskeletal: See HPI Skin: No symptoms reported Hematologic/Lymphatic: No symptoms reported Neurological/Psychological: No symptoms reported -: Yes All other systems reviewed and negative <BERTHACECILIA JOHNSON - Last Filed: 05/03/18 00:21> Physical Exam <BERTHAKRYSTENABDELRAHMAN - Last Filed: 05/03/18 00:21> <ANETTE FITZGERALD - Last Filed: 05/03/18 00:23> - Vital signs Vitals: Temp Pulse Resp BP Pulse Ox 98.0 F 100 20 150/63 H 94 05/02/18 12:19 05/02/18 12:19 05/02/18 12:19 05/02/18 12:19 05/02/18 12:19 - Notes Notes: GENERAL: Alert. Appears uncomfortable. HEAD: Normocephalic, atraumatic. EYES: Pupils equal, round, and reactive to light. Extraocular movements intact. ENT: Oral mucosa moist, tongue midline. NECK: Full range of motion. Supple. Trachea midline. LUNGS: Trace expiratory wheezes in left upper lobe. No rales or rhonchi. No respiratory distress. HEART: Regular rate and rhythm. No murmurs, gallops, or rubs. ABDOMEN: Soft, non-tender. Morbidly obese. Non-distended. Bowel sounds present in all 4 quadrants. EXTREMITIES: Moves all 4 extremities spontaneously. Left knee is tender to palpation. Crepitus in bilateral knees with flexion and extension. 1+ pitting edema BLE, chronic woody erythema BLE. Radial and dorsalis pedis pulses 2/4 bilaterally. No cyanosis. NEUROLOGICAL: Alert and oriented x3. Normal speech. PSYCH: Normal affect, normal mood. SKIN: Warm, dry, normal turgor. (BERTHACECILIA JOHNSON) Course - Laboratory Result Diagrams: 05/02/18 13:03 05/02/18 13:03 <BERTHACECILIA - Last Filed: 05/03/18 00:21> - Laboratory Result Diagrams: 05/02/18 13:03 05/02/18 13:03 <ANETTE FITZGERALD - Last Filed: 05/03/18 00:23> - Re-evaluation Re-evalutation: 05/02/18 21:00 CBC shows mild anemia with hemoglobin 11.8, cardiac enzymes negative 2, proBNP only minimally elevated 501 otherwise unremarkable, presentation not consistent with congestive heart failure, trace edema in the legs, no crackles in the lungs , chest x-ray does not show pneumonia or pleural effusion or pulmonary edema. CMP unremarkable, CT angiogram of the chest was performed to look for pulmonary embolism and a venous Doppler was performed to look for DVT, both of these were negative. Patient does have risk factors including hypertension, smoking, morbid obesity and family history. Discussed with Dr. Smith who agrees to admit the patient to her service in observation status on the telemetry care unit. ( ANETTE FITZGERALD) - Vital Signs Vital signs: Temp Pulse Resp BP Pulse Ox 98.4 F 80 18 142/65 H 100 05/02/18 22:30 05/02/18 22:30 05/02/18 22:30 05/02/18 22:30 05/02/18 22:30 - Laboratory Laboratory results interpreted by me: 05/02/18 05/02/18 13:03 13:03 Hgb 11.8 L MCH 26.1 L RDW 17.8 H Chloride 110 H - EKG Interpretation by Me Additional EKG results interpreted by me: 05/02/18 21:03 EKG shows sinus rhythm at a rate of 80, normal axis, no intervals, no ST segment depressions, no T-wave inversions, there is nonspecific T-wave flattening in aVL and V2 per my interpretation. (ANETTE FITZGERALD) Discharge <CECILIA STONE - Last Filed: 05/03/18 00:21> - Discharge Admitting Provider: Hospitalist Su Smith Unit Admitted: Telemetry <ANETTE FITZGERALD - Last Filed: 05/03/18 00:23> - Discharge Clinical Impression: Chest pain, rule out acute myocardial infarction Condition: Good Disposition: ADMITTED OBSERVATION Scribe Attestation: 05/03/18 00:23 I personally performed the services described in the documentation, reviewed and edited the documentation which was dictated to the scribe in my presence, and it accurately records my words and actions. (ANETTE FITZGERALD) Scribe Documentation - Scribe Written by Savana:: Savana Johnson, 05/02/2018 15:16 acting as scribe for :: Brayan <CECILIA STONE - Last Filed: 05/03/18 00:21>
[2018-05-02 14:43] LABS: INTERNATIONAL RATION (INR) 0.94
[2018-05-02 14:44] LABS: PARTIAL THROMBOPLASTIN TIME 30.8 SEC (23.5-35.8)
--- NOTE | 2018-05-02 16:37 | RADIOLOGY REPORT (SQ) ---
EXAM DESCRIPTION: VENOUS UNILATERAL LOWER COMPLETED DATE/TIME: 05/02/2018 4:28 pm REASON FOR STUDY: left knee pain and leg swelling COMPARISON: None. TECHNIQUE: Dynamic and static warner scale and color images acquired of the left leg venous system. Se lected spectral images acquired with additional compression and augmentation maneuvers. The contralat eral common femoral vein and saphenofemoral junction were also imaged. Images stored on PACS. LIMITATIONS: None. FINDINGS: COMMON FEMORAL: Normal phasicity, compression and augmentation. No visualized echogenic ma terial on warner scale. No defects on color images. FEMORAL: Normal compression and augmentation. No visualized echogenic material on warner scale. No defe cts on color images. POPLITEAL: Normal compression, augmentation. No visualized echogenic material on warner scale. No defec ts on color images. CALF VESSELS: Normal compression, augmentation. No visualized echogenic material on warner scale. No de fects on color images. GSV and SSV: Normal compression, augmentation. No visualized echogenic material on warner scale. No def ects on color images. ANY DEEP VENOUS INSUFFICIENCY: Not evaluated. ANY EVIDENCE OF POPLITEAL CYST: No. OTHER: No other significant finding. CONTRALATERAL COMMON FEMORAL VEIN AND SAPHENOFEMORAL JUNCTION: Normal phasicity, compression and augmentation. No visualized echogenic material on warner scale. No de fects on color images. IMPRESSION: NO EVIDENCE DVT OR SVT IN THE LEFT LEG. TECHNICAL DOCUMENTATION: JOB ID: [id number] [employer]- All Rights Reserved Reading location - IP/workstation name: [email or web address]
--- NOTE | 2018-05-02 18:06 | RADIOLOGY REPORT (SQ) ---
EXAM DESCRIPTION: CTA CHEST COMPLETED DATE/TIME: 05/02/2018 5:52 pm REASON FOR STUDY: SOB, h/o DVT, chest tightness COMPARISON: Chest x-ray dated 05/02/2018 TECHNIQUE: CT scan of the chest performed using helical scanning technique with dynamic intravenous contrast injection. Images reviewed with lung, soft tissue and bone windows. Reconstructed coronal and sagittal MPR images reviewed. Additional 3 dimensional post-processing performed to develop Maximal Intensity Projection images (DE P). All images stored on PACS. All CT scanners at this facility use dose modulation, iterative reconstruction, and/or weight based d osing when appropriate to reduce radiation dose to as low as reasonably achievable (ALARA). [facility]: Dose Right [facility]: CareDose [facility]: Dose Right [facility]: Teradose 4D [facility]: [employer] CONTRAST TYPE AND DOSE: contrast/concentration: Isovue 370.00 mg/ml; Total Contrast Delivered: 79.0 ml; Total Saline Delivered: 110.0 ml Contrast bolus optimized for the pulmonary arteries. Not diagnostic for the aorta. RENAL FUNCTION: Creatinine 0.83 RADIATION DOSE: CT Rad equipment meets quality standard of care and radiation dose reduction techniq ues were employed. CTDIvol: 15.5 - 28.2 mGy. DLP: 579 mGy-cm. . LIMITATIONS: Study is limited due to the patient's body habitus. FINDINGS: LUNGS AND PLEURA: No masses, infiltrates, or pneumothorax. No pleural effusions or pleura l calcifications. AORTA AND GREAT VESSELS: No aneurysm. Contrast bolus not optimized for the aorta. HEART: No pericardial effusion. No significant coronary artery calcifications. PULMONARY ARTERIES: No emboli visualized in the main pulmonary arteries or the segmental branches. HILAR AND MEDIASTINAL STRUCTURES: No identified masses or abnormal nodes. HARDWARE: None in the chest. UPPER ABDOMEN: No significant findings. Limited exam. THYROID AND OTHER SOFT TISSUES: No masses. No adenopathy. BONES: No acute or significant finding. 3D MIPS: Confirm above findings. OTHER: No other significant finding. IMPRESSION: NORMAL CTA OF THE CHEST. NO PULMONARY EMBOLI. COMMENT: Quality ID # [id number]: Final reports with documentation of one or more dose reduction techniques (e.g., Automated exposure control, adjustment of the mA and/or kV according to patient size, use of iterative reconstruction technique) TECHNICAL DOCUMENTATION: JOB ID: [id number]- All Rights Reserved Reading location - IP/workstation name: [email or web address]
[2018-05-02] MEDS ORDERED: KETOROLAC TROMETHAMINE INJ/PF 30 MG/1 ML SDV IV ONE (19:44)
[2018-05-02] MEDS ORDERED: ASPIRIN 325 MG TABLET PO ONE (21:03)
[2018-05-02] MEDS ORDERED: GLUCAGON,HUMAN RECOMB 1 MG INJ SUBCUT PRN (22:00)
[2018-05-02] MEDS ORDERED: DEXTROSE 40% GEL 15 GM TUBE PO PRN ×2 (22:00)
[2018-05-02] MEDS ORDERED: DEXTROSE 50%-WATER 25 GM/50 ML DISP.SYRIN IV PRN ×2 (22:00)
[2018-05-02] MEDS ORDERED: NITROGLYCERIN 0.4 MG/TAB 25 TAB/BOTTLE SL PRN (22:00)
--- NOTE | 2018-05-02 22:14 | EKG REPORT ---
SEVERITY:- NORMAL ECG - SINUS RHYTHM : Confirmed by: Andree Terry 02-May-2018 22:13:46
[2018-05-02] MEDS ORDERED: FLUTICASONE/SALMETEROL DISKUS 100-50 MCG/DOSE IH ONE ×2 (22:45→23:24)
[2018-05-03] MEDS: OXYCODONE HCL IR 5 MG TABLET PO PRN ×3 (01:25→22:27)
[2018-05-03] MEDS: OXYCODONE-ACETAMINOPHEN 5-325 MG TABLET PO PRN ×4 (01:26→22:28)
--- NOTE | 2018-05-03 01:54 | PDOC H&P ---
History of Present Illness Admission Date/PCP: 05/02/18 21:08 MATT MATHIAS DO Patient complains of: Chest pain History of Present Illness: DERECK PHELPS is a 57 year old female with morbid obesity who comes to the emergency department initially complaining of bilateral leg swelling, inability to walk secondary to her severe knee osteoarthritis. While in the emergency department patient did mention that for the last 2 weeks she is having chest pain, in the middle of her chest radiated to the back, sharp and like an electrocution, last several minutes, happens when she is at rest and resolve spontaneously. States that during the episode she cannot get up. Symptoms are associated with nausea and shortness of breath, denies association with diaphoresis, vomiting, dizziness or palpitations. Patient has severe decreased exertional tolerance is secondary to her knees osteoarthritis, usually use a cane, a walker or a wheelchair. Denies history of cardiac disease. Denies ever follow with any tooth inspector. Patient had a stress test more than 15 years ago and apparently it was negative Multiple test done in the ED as a CPA P protocol negative, DVT of both extremities negative, chest x-ray negative. Troponins at the time of this dictation 2 negative. EKG unremarkable. Past Medical History Cardiac Medical History: Reports: Congestive Heart Failure, Hypertension Denies: Coronary Artery Disease, Myocardial Infarction Pulmonary Medical History: Reports: Bronchitis, Chronic Obstructive Pulmonary Disease (COPD) - no home oxygen, Pneumonia Denies: Asthma, Tuberculosis Neurological Medical History: Denies: Seizures Musculoskeltal Medical History: Reports: Arthritis Psychiatric Medical History: Reports: Depression Hematology: Denies: Anemia Past Surgical History Past Surgical History: Reports: Cholecystectomy, Hysterectomy, Orthopedic Surgery - Bilateral feet screws Denies: Pacemaker Social History Smoking Status: Current Every Day Smoker Frequency of Alcohol Use: None Hx Recreational Drug Use: No Hx Prescription Drug Abuse: No Family History Family History: Reviewed & Not Pertinent, Hypertension, Malignancy, Other - [place] Parental Family History Reviewed: No Children Family History Reviewed: NA Sibling(s) Family History Reviewed.: NA Medication/Allergy Home Medications: Topiramate [Topamax] 50 mg PO BID 01/04/12 Pregabalin [Lyrica 50 mg Capsule] 150 mg PO TID 01/05/12 Mirabegron [Myrbetriq] 50 mg PO DAILY 03/05/18 Venlafaxine HCl ER [Effexor Xr 75 mg Cap.sr] 75 mg PO QAM 03/05/18 Fluticasone/Salmeterol [Advair 100-50 Diskus 28 Dose] 1 inh IH Q12H #1 inhaler 03/07/18 Losartan Potassium [Cozaar 50 mg Tablet] 50 mg PO DAILY 05/02/18 Omeprazole 40 mg PO BID 05/02/18 Pramipexole Di-HCl [Mirapex] 1.5 mg PO TID 05/02/18 Allergies/Adverse Reactions: clindamycin Allergy (Verified 03/02/18 16:12) sulfamethoxazole [From Bactrim] Allergy (Verified 03/02/18 16:12) trimethoprim [From Bactrim] Allergy (Verified 03/02/18 16:12) vancomycin Allergy (Verified 03/02/18 16:12) Review of Systems Review of Systems: As outlined in the HPI, all others negative Physical Exam Vital Signs: Temp Pulse Resp BP Pulse Ox 98.4 F 80 18 142/65 H 100 05/02/18 22:30 05/02/18 22:30 05/02/18 22:30 05/02/18 22:30 05/02/18 22:30 Intake & Output 05/01/18 05/02/18 05/03/18 06:59 06:59 06:59 Weight 151 kg Additional comments: General appearance: Morbidly obese, alert and cooperative, and appears to be in no acute distress Head: Normocephalic Eyes: PEERL, EOMI, vision is grossly intact. Ears: External auditory canal and tympanic membranes clear, hearing grossly intact. Nose: No nasal discharge. Throat: Oral cavity and pharynx normal. No inflammation, swelling, exudate or lesions. Neck: Neck supple, nontender without lymphadenopathy, masses or thyromegaly. Cardiac: Normal S1 and S2. No S3, S4 or murmurs. Rhythm is regular. There is 2-3 +peripheral edema, no cyanosis or pallor. Extremities are warm and well perfused. Capillary refill is less than 2 seconds. No carotid bruits. Thorax : Mild reproducible pain to left chest. Lungs: Clear to auscultation and percussion without rales, rhonchi, wheezing, very distant breath sounds. Not using accessory muscles. Abdomen: Positive bowel sounds. Soft. Nondistended, nontender. No guarding or rebound. No masses. Difficult to appreciate hepatosplenomegaly secondary to her body habitus Extremities: Deformity secondary to her obesity no joint abnormality. Peripheral pulses intact. Mild varicosities. Neurological: Cranial nerves II through XII grossly intact. Strength and sensation symmetric and intact throughout. Reflexes 2+ throughout. Skin: Skin normal color, texture and turgor with no lesions or eruptions, warm and dry. Psychiatric: The mental examination revealed the patient was oriented to person , place, and time. The patient was able to demonstrate good judgment on recent , without hallucinations, abnormal affect or abnormal behaviors. Results Laboratory Results: 05/02/18 05/02/18 05/02/18 13:03 13:03 13:03 WBC 6.3 Hgb 11.8 L Hct 36.6 Plt Count 223 Absolute Neutrophils 3.8 Sodium 144.7 Potassium 4.3 Chloride 110 H Carbon Dioxide 23 Anion Gap 12 BUN 9 Creatinine 0.83 Est GFR ( Amer) > 60 Est GFR (Non-Af Amer) > 60 Glucose 106 Calcium 9.2 Total Bilirubin 0.3 Direct Bilirubin 0.3 Neonat Total Bilirubin Not Reportable Neonat Direct Bilirubin Not Reportable Neonat Indirect Bili Not Reportable AST 23 ALT 28 Alkaline Phosphatase 74 Troponin I < 0.012 NT-Pro-B Natriuret Pep 501 Total Protein 6.9 Albumin 3.7 05/02/18 19:25 WBC Hgb Hct Plt Count Absolute Neutrophils Sodium Potassium Chloride Carbon Dioxide Anion Gap BUN Creatinine Est GFR ( Amer) Est GFR (Non-Af Amer) Glucose Calcium Total Bilirubin Direct Bilirubin Neonat Total Bilirubin Neonat Direct Bilirubin Neonat Indirect Bili AST ALT Alkaline Phosphatase Troponin I < 0.012 NT-Pro-B Natriuret Pep Total Protein Albumin EKG Comments: EKG, reviewed by me, shows normal sinus rhythm with a ventricular rate of 58 bpm , no acute ST elevations, ST depressions or T-wave inversions. Impressions: Chest X-Ray 05/02/18 12:42 IMPRESSION: NO ACUTE RADIOGRAPHIC FINDING IN THE CHEST. Chest/Abdomen CTA 05/02/18 14:31 IMPRESSION: NORMAL CTA OF THE CHEST. NO PULMONARY EMBOLI. Venous Doppler Study 05/02/18 14:31 IMPRESSION: NO EVIDENCE DVT OR SVT IN THE LEFT LEG. Status: Image reviewed by me Assessment & Plan - Diagnosis (1) Chest pain, rule out acute myocardial infarction Is this a current diagnosis for this admission?: Yes Plan: Patient with atypical chest pain. Will keep the patient under telemetry monitoring, cycle cardiac enzymes total of 3, heart failure nitroglycerin sublingual as needed. Stress test tomorrow and n.p.o. after midnight. (2) Chronic diastolic heart failure Is this a current diagnosis for this admission?: No Plan: Patient is on Lasix at home, apparently compliant with her medications, she does not look like CHF exacerbation and there is no pulmonary edema or congestion in the CTA. Likely patient has a worsening dependent edema in her lower extremities. Can continue with home Lasix. And keep leg elevations (3) Hypertension Qualifiers: Hypertension type: unspecified Qualified Code(s): I10 - Essential (primary ) hypertension Is this a current diagnosis for this admission?: No Plan: Patient with decent control blood pressure in the emergency department, continue with home antihypertensive medications. (4) Fibromyalgia Is this a current diagnosis for this admission?: No Plan: Patient on multiple pain medications at home, I am resuming all of them. (5) Morbid obesity Is this a current diagnosis for this admission?: Yes Plan: Lifestyle modification advised (6) Tobacco dependence Plan: Counseling smoking cessation. Nicotine patch if needed. (7) COPD (chronic obstructive pulmonary disease) Is this a current diagnosis for this admission?: No Plan: Patient does not have an exacerbation. Continue home bronchodilators.
[2018-05-03 08:04] LABS: HEMATOCRIT 33.5 % (36.0-47.0); MEAN CORPUSCULAR HEMOGLOBIN 26.3 pg (27.0-33.4); MEAN CORPUSCULAR HGB CONC 32.9 g/dL (32.0-36.0); MEAN CORPUSCULAR VOLUME 80 fl (80-97); PLATELET COUNT 180 10^3/uL (150-450); RED CELL DISTRIBUTION WIDTH 17.6 % (11.5-14.0); WHITE BLOOD COUNT 4.7 10^3/uL (4.0-10.5)
[2018-05-03] MEDS: VENLAFAXINE HCL 75 MG CAP.SR.24H PO SCH (08:10)
[2018-05-03 08:19] LABS: ANION GAP 9 (5-19); BLOOD UREA NITROGEN 10 mg/dL (7-20); CARBON DIOXIDE 24 mmol/L (22-30); CHLORIDE 110 mmol/L (98-107); CHOLESTEROL 167.52 mg/dL (0-200); GLUCOSE 82 mg/dL (75-110); SODIUM 143.4 mmol/L (137-145); TRIGLYCERIDES 126 mg/dL (<150)
[2018-05-03 08:30] LABS: DIRECT LDL 85 mg/dL (<100)
[2018-05-03] MEDS: FLUTICASONE/SALMETEROL DISKUS 100-50 MCG/DOSE IH SCH ×2 (09:44→20:54)
[2018-05-03] MEDS: ASPIRIN 81 MG TABLET, ENT COATED PO SCH (09:53)
[2018-05-03] MEDS: LANSOPRAZOLE 30 MG TAB.RAP.DR PO SCH ×2 (09:53→17:05)
[2018-05-03] MEDS: PREGABALIN 50 MG CAPSULE PO SCH ×3 (09:53→17:05)
[2018-05-03] MEDS: PRAMIPEXOLE DI-HCL 0.5 MG TABLET PO SCH ×3 (09:54→17:06)
[2018-05-03] MEDS: TOPIRAMATE 25 MG TABLET PO SCH ×2 (09:54→17:06)
[2018-05-03] MEDS: LOSARTAN POTASSIUM 50 MG TABLET PO SCH (09:54)
[2018-05-03] MEDS ORDERED: (PENDING PHARMACY ID) (Mirabegron [Myrbetriq] 50 MG) PO SCH (10:00)
--- NOTE | 2018-05-03 13:07 | PDOC PROGRESS REPORT ---
Subjective Progress Note for:: 05/03/18 Subjective:: This is a 57 years old female patient admitted for rule out ACS. She has different sensation of stress test and for the second session patient to stay overnight in the hospital. Currently patient is chest pain-free. Reason For Visit: CHEST PAIN Physical Exam Vital Signs: Temp Pulse Resp BP Pulse Ox 97.8 F 79 20 144/69 H 100 05/03/18 07:03 05/03/18 07:03 05/03/18 07:03 05/03/18 07:03 05/03/18 07:03 Intake & Output 05/02/18 05/03/18 05/04/18 06:59 06:59 06:59 Intake Total 10 Balance 10 Weight 151 kg General appearance: PRESENT: morbidly obese - Super morbid obesity Head exam: PRESENT: atraumatic Eye exam: PRESENT: conjunctiva pink Mouth exam: PRESENT: moist Neck exam: ABSENT: carotid bruit, JVD, lymphadenopathy, thyromegaly Respiratory exam: PRESENT: clear to auscultation jimmy. ABSENT: rales, rhonchi, wheezes Cardiovascular exam: PRESENT: RRR. ABSENT: diastolic murmur, rubs, systolic murmur GI/Abdominal exam: PRESENT: normal bowel sounds, soft. ABSENT: distended, guarding, mass, organolmegaly, rebound, tenderness Extremities exam: PRESENT: +2 edema Neurological exam: PRESENT: alert, awake, oriented to time, oriented to situation Psychiatric exam: PRESENT: normal mood Results Laboratory Results: 05/03/18 07:47 05/03/18 07:47 05/03/18 05/03/18 07:47 07:47 WBC 4.7 RBC 4.20 Hgb 11.0 L Hct 33.5 L MCV 80 MCH 26.3 L MCHC 32.9 RDW 17.6 H Plt Count 180 Sodium 143.4 Potassium 4.0 Chloride 110 H Carbon Dioxide 24 Anion Gap 9 BUN 10 Creatinine 0.79 Est GFR ( Amer) > 60 Est GFR (Non-Af Amer) > 60 Glucose 82 Calcium 9.0 Triglycerides 126 Cholesterol 167.52 LDL Cholesterol Direct 85 VLDL Cholesterol 25.0 HDL Cholesterol 50 05/03/18 05/03/18 01:36 07:47 Troponin I < 0.012 < 0.012 Impressions: Chest X-Ray 05/02/18 12:42 IMPRESSION: NO ACUTE RADIOGRAPHIC FINDING IN THE CHEST. Chest/Abdomen CTA 05/02/18 14:31 IMPRESSION: NORMAL CTA OF THE CHEST. NO PULMONARY EMBOLI. Venous Doppler Study 05/02/18 14:31 IMPRESSION: NO EVIDENCE DVT OR SVT IN THE LEFT LEG. Assessment & Plan - Diagnosis (1) Chest pain Qualifiers: Chest pain type: other chest pain Qualified Code(s): R07.89 - Other chest pain; R07.8 - Other chest pain Is this a current diagnosis for this admission?: Yes Plan: Set of cardiac enzymes are negative. No EKG changes. Patient is scheduled for stress test. (2) Diastolic CHF, chronic Is this a current diagnosis for this admission?: Yes Plan: Compensated. Continue current regimen. (3) COPD (chronic obstructive pulmonary disease) Qualifiers: Emphysema type: unspecified Is this a current diagnosis for this admission?: Yes Plan: Without exacerbation. Continue current regimen (4) Fibromyalgia Is this a current diagnosis for this admission?: Yes Plan: Continue home medications. (5) Super morbid obesity Is this a current diagnosis for this admission?: Yes Plan: Lifestyle modification advised.
[2018-05-03] MEDS ORDERED: REGADENOSON INJ 0.4 MG/5 ML DISP.SYRIN IV ONE (13:22)
[2018-05-04] MEDS: OXYCODONE HCL IR 5 MG TABLET PO PRN ×2 (04:12→10:26)
[2018-05-04] MEDS: OXYCODONE-ACETAMINOPHEN 5-325 MG TABLET PO PRN ×2 (04:13→10:27)
[2018-05-04] MEDS: FLUTICASONE/SALMETEROL DISKUS 100-50 MCG/DOSE IH SCH (09:55)
[2018-05-04] MEDS: LANSOPRAZOLE 30 MG TAB.RAP.DR PO SCH (11:45)
[2018-05-04] MEDS: VENLAFAXINE HCL 75 MG CAP.SR.24H PO SCH (11:45)
[2018-05-04] MEDS: ASPIRIN 81 MG TABLET, ENT COATED PO SCH (11:45)
[2018-05-04] MEDS: TOPIRAMATE 25 MG TABLET PO SCH (11:45)
[2018-05-04] MEDS: PRAMIPEXOLE DI-HCL 0.5 MG TABLET PO SCH (11:46)
[2018-05-04] MEDS: LOSARTAN POTASSIUM 50 MG TABLET PO SCH (11:46)
[2018-05-04] MEDS: PREGABALIN 50 MG CAPSULE PO SCH (11:47)
--- NOTE | 2018-05-04 13:45 | DRAGON STRESS TEST REPORT ---
INTRAVENOUS LEXISCAN CARDIOLITE STRESS TEST USING SINGLE PHOTON EMMISION COMPUTERIZED TOMOGRAPHIC. DATE OF PROCEDURE: Stress imaging and testing May 03, rest imaging May 04, 2018, INDICATION : Chest pain CARDIAC RISK FACTORS: Hypertension, tobacco abuse RESTING EKG: Sinus rhythm without any baseline ST-T wave changes STRESS EKG: No significant ST segment changes noted with LexiScan bolus REASON FOR TERMINATION: Protocol. PROCEDURE REPORT: Baseline heart rate 81 beats per minute with blood pressure of 129/64. Patient had no significant complaints. Patient was bolused with Lexiscan 0.4 mg intravenously followed by saline bolus. Heart rate at 2 minutes post bolus 89 with a blood pressure of 147/62. 3 minutes post bolus heart rate 86 with blood pressure of 163/67. No significant EKG changes were noted. Patient did complain of transient chest tightness at third minute post Lexiscan which resolved within a minute. CONCLUSIONS: Normal EKG and hemodynamic response to IV LexiScan. NUCLEAR DATA: For rest imaging, at rest the patient was given 40.7 millicuries of technetium 99 sestamibi injected intravenously. As per protocol rest gated SPECT images were obtained. On day of stress test, the patient was given intravenous LexiScan at a dose of 0.4 mg in 5 mL intravenously, followed by flush with normal saline. Subsequently the stress dose of 40.0 millicuries of technetium 99 sestamibi was injected intravenously. As per protocol stress gated images were obtained. NUCLEAR INTERPRETATION: Both raw and processed data were used for interpretation. Visual, qualitative, computer-generated quantitative data was used. There was good myocardial uptake of technetium compound. Motion artifact and soft tissue attenuations were noted. Increased visceral uptake was noted. Significant soft tissue attenuation was also noted. No definitive areas of transient perfusion defect noted, except for borderline mild decreased uptake in the mid inferior wall, possibly artifactual but cannot rule out mild ischemia, No definitive areas of fixed perfusion defect or scars noted. EKG gated imaging showed LV EF at 59 %, rest and stress gated EF similar visually. T. I D. ratio was 0.98. Lung heart ratio noted to be within normal limits 0.36. No significant extracardiac and abnormal radiotracer activities were noted. RV free wall uptake was noted to be WNL. IMPRESSION: Also refer to comments under nuclear interpretation. Also test results needs to be interpreted in the context of pretest probability. 1. No definitive areas of transient perfusion defect or ischemia noted, except for borderline mild decreased uptake in the mid inferior wall, possibly artifactual but cannot rule out mild ischemia. 2. There is no definitive scintigraphic evidence of myocardial infarction/scar. 3. EKG gated imaging shows left ventricular ejection fraction of approx. 59 %. 4. Clinical correlation requested as occasionally single vessel disease or balanced ischemia could be missed. In approximately 10% of the cases Lexiscan may not cause adequate vasodilatory stress. RECOMMENDATIONS: Aggressive risk factor modification and medical management. Further evaluation may be needed if continued symptoms or other high risk indicators are noted on clinical evaluation. Close cardiology follow-up is also recommended. Clinical correlation with echocardiogram derived ejection fraction. Inability to exercise by itself can lead to increased cardiovascular event risks. Consider cardiology consultation and or follow-up if clinically indicated. I am available for cardiology evaluation and consultation if requested by the rn primary care, unless patient already has a air shovel operator. Dr. Tje Terry. MRCP Board certified in cardiology and sleep medicine. Board certified in nuclear cardiology, adult echocardiography. TIFFANY
--- NOTE | 2018-05-04 14:15 | PDOC DISCHARGE SUMMARY ---
General - Admit/Disc Date/PCP Admission Date/Primary Care Provider: 05/02/18 21:08 MATT MATHIAS, Discharge Date: 05/04/18 - Discharge Diagnosis (1) Chest pain Is this a current diagnosis for this admission?: Yes (2) Diastolic CHF, chronic Is this a current diagnosis for this admission?: Yes (3) COPD (chronic obstructive pulmonary disease) Is this a current diagnosis for this admission?: Yes (4) Fibromyalgia Is this a current diagnosis for this admission?: Yes (5) Super morbid obesity Is this a current diagnosis for this admission?: Yes - Additional Information Home Medications: Topiramate [Topamax] 50 mg PO BID 01/04/12 Pregabalin [Lyrica 50 mg Capsule] 150 mg PO TID 01/05/12 Mirabegron [Myrbetriq] 50 mg PO DAILY 03/05/18 Venlafaxine HCl ER [Effexor Xr 75 mg Cap.sr] 75 mg PO QAM 03/05/18 Fluticasone/Salmeterol [Advair 100-50 Diskus 28 Dose] 1 inh IH Q12H #1 inhaler 03/07/18 Losartan Potassium [Cozaar 50 mg Tablet] 50 mg PO DAILY 05/02/18 Omeprazole 40 mg PO BID 05/02/18 Pramipexole Di-HCl [Mirapex] 1.5 mg PO TID 05/02/18 History of Present Illness History of Present Illness: DERECK PHELPS is a 57 year old female with morbid obesity who comes to the emergency department initially complaining of bilateral leg swelling, inability to walk secondary to her severe knee osteoarthritis. While in the emergency department patient did mention that for the last 2 weeks she is having chest pain, in the middle of her chest radiated to the back, sharp and like an electrocution, last several minutes, happens when she is at rest and resolve spontaneously. States that during the episode she cannot get up. Symptoms are associated with nausea and shortness of breath, denies association with diaphoresis, vomiting, dizziness or palpitations. Patient has severe decreased exertional tolerance is secondary to her knees osteoarthritis, usually use a cane, a walker or a wheelchair. Denies history of cardiac disease. Denies ever follow with any tug master. Patient had a stress test more than 15 years ago and apparently it was negative Multiple test done in the ED as a CPA P protocol negative, DVT of both extremities negative, chest x-ray negative. Troponins at the time of this dictation 2 negative. EKG unremarkable. Hospital Course Hospital Course: This is a 57 years old female patient admitted for observation to rule out acute coronary syndrome. History set of cardiac enzymes are negative, no acute changes and this morning and yesterday she had cardiac stress test which was reported as: No definitive areas of transient perfusion defect or ischemia noted, except for borderline mild decreased uptake in the mid inferior wall, possibly artifactual but cannot rule out mild ischemia. There is no definitive scintigraphic evidence of myocardial infarction/scar. EKG gated imaging shows left ventricular ejection fraction approximately 59%. Patient remained symptom-free throughout the night. Her vital signs and labs are within normal limits. Patient is clinically stable enough to be discharged. She needs to follow-up with her primary care physician in 1 week. Physical Exam Vital Signs: Temp Pulse Resp BP Pulse Ox 97.7 F 74 18 129/58 H 99 05/04/18 11:36 05/04/18 11:36 05/04/18 11:36 05/04/18 11:36 05/04/18 11:36 Intake & Output 05/03/18 05/04/18 05/05/18 06:59 06:59 06:59 Intake Total 842 10 Balance 842 10 Weight 151 kg 158.9 kg General appearance: PRESENT: no acute distress Head exam: PRESENT: atraumatic Eye exam: PRESENT: conjunctiva pink Mouth exam: PRESENT: moist Neck exam: ABSENT: carotid bruit, JVD, lymphadenopathy, thyromegaly Respiratory exam: PRESENT: clear to auscultation jimmy. ABSENT: rales, rhonchi, wheezes Cardiovascular exam: PRESENT: RRR. ABSENT: diastolic murmur, rubs, systolic murmur Pulses: PRESENT: normal dorsalis pedis pul GI/Abdominal exam: PRESENT: normal bowel sounds, soft. ABSENT: distended, guarding, mass, organolmegaly, rebound, tenderness Extremities exam: PRESENT: full ROM, +1 edema. ABSENT: calf tenderness, clubbing, pedal edema Neurological exam: PRESENT: alert, awake, oriented to time, oriented to situation Psychiatric exam: PRESENT: normal mood Results Laboratory Results: 05/03/18 07:47 05/03/18 07:47 05/03/18 05/03/18 05/03/18 01:36 07:47 13:48 Troponin I < 0.012 < 0.012 < 0.012 Impressions: Chest X-Ray 05/02/18 12:42 IMPRESSION: NO ACUTE RADIOGRAPHIC FINDING IN THE CHEST. Chest/Abdomen CTA 05/02/18 14:31 IMPRESSION: NORMAL CTA OF THE CHEST. NO PULMONARY EMBOLI. Venous Doppler Study 05/02/18 14:31 IMPRESSION: NO EVIDENCE DVT OR SVT IN THE LEFT LEG. Qualifiers - * PATIENT BEING DISCHARGED WITH ANY OF THE FOLLOWING DIAGNOSIS: Heart Failure VTE patient discharged on overlapping Therapy?: No Reason(s) for not prescribing Overlap Therapy:: Not indicated Stroke Pt being discharged on Anti-thrombolytic therapy?: No Reason(s) for not prescribing Anti-thrombolytic therapy:: Not indicated Stroke Pt being discharged on Anti-coagulation therapy?: No Reason(s) for not prescribing Anti-coagulation therapy:: Not indicated Stroke Pt being discharged on Statins?: No Reason(s) for not prescribing Statins therapy:: Not indicated DC Pt being discharged on Aspirin therapy?: No Reason(s) for not prescribing Aspirin therapy:: Not indicated DC Pt being discharged on Statins?: No Reason(s) for not prescribing Statin therapy:: Not indicated DC Pt discharged ACEI/ARBS?: No Reason(s) for not prescribing ACEI/ARBS:: Not indicated HF Pt being discharged on ACEI for LVEF less than 40%?: No Reason(s) for not prescribing ACEI:: Not indicated HF Pt being discharged on ARBS for LVEF less than 40%?: No Reason(s) for not prescribing ARBS:: Not indicated HF Pt with Afib discharged with Warfarin?: No Reason(s) for not prescribing Warfarin:: Not indicated HF Pt discharged on evidence-based Beta Ericka:: No Reason(s) for not prescribing evidence-based Beta Ericka:: Not indicated
[2018-05-04 15:51] VITALS: BP 135/62
== END 2018-05-04 18:22 | disposition home or self-care (01) ==
LOC: ER 12:10 → EH 21:08 → 4S 22:30
PROVIDERS: ADMIT Internal Medicine; ATTEND Internal Medicine
DX: R07.89 Other chest pain (principal); I11.0 Hypertensive heart disease with heart failure; I50.32 Chronic diastolic (congestive) heart failure; J44.9 Chronic obstructive pulmonary disease, unspecified; M79.7 Fibromyalgia; E66.01 Morbid (severe) obesity due to excess calories; M17.0 Bilateral primary osteoarthritis of knee; R11.0 Nausea; R60.0 Localized edema; R26.2 Difficulty in walking, not elsewhere classified; F17.200 Nicotine dependence, unspecified, uncomplicated; R06.02 Shortness of breath; D64.9 Anemia, unspecified; Z68.43 Body mass index [BMI] 50.0-59.9, adult; Z79.899 Other long term (current) drug therapy; Z90.49 Acquired absence of other specified parts of digestive tract; Z90.710 Acquired absence of both cervix and uterus; Z96.7 Presence of other bone and tendon implants; Z82.49 Family history of ischemic heart disease and other diseases of the circulatory system; Z86.718 Personal history of other venous thrombosis and embolism
CPT/HCPCS: 93005; 94640; 99285; 96374; 36415 ×2; 82553; 82550; 85025; 85027; 85610; 85730; 80048; 80053; 84484 ×2; 80061; 83880; 93971; 93017; 71046; 78452; 71275; 93010; A9500; J2785; A9270 ×21; J1885; J3490; Q9969

== ENCOUNTER 2018-10-25 08:58 | Emergency (ER) | payer MEDICARE, MEDICAID ==
[2018-10-25] MEDS ORDERED: HYDROMORPHONE HCL INJ/PF 2 MG/ML AMPULE IM ONE ×2 (09:41→11:27)
[2018-10-25] MEDS ORDERED: ONDANSETRON 4 MG TAB.RAPDIS PO ONE (09:43)
--- NOTE | 2018-10-25 09:45 | ER Document Report ---
ED Medical Screen (RME) - General Chief Complaint: Fall Stated Complaint: RIGHT LEG PAIN Time Seen by Provider: 10/25/18 09:38 Notes: 57 years old female with a history of difficulty walking due to arthritis and obesity was walking with a walker. Stepped the wrong way and got weak both lower extremity and fell 2 days ago. Presents today crying and in pain. Pointing towards the lower back as well as right hip. TRAVEL OUTSIDE OF THE [place] IN LAST 30 DAYS: No - Related Data Allergies/Adverse Reactions: clindamycin Allergy (Verified 10/25/18 09:01) sulfamethoxazole [From Bactrim] Allergy (Verified 10/25/18 09:01) trimethoprim [From Bactrim] Allergy (Verified 10/25/18 09:01) vancomycin Allergy (Verified 10/25/18 09:01) Past Medical History - Social History Chew tobacco use (# tins/day): No Frequency of alcohol use: None Drug Abuse: None - Past Medical History Cardiac Medical History: Reports: Hx Congestive Heart Failure, Hx Hypertension Denies: Hx Coronary Artery Disease, Hx Heart Attack Pulmonary Medical History: Reports: Hx Bronchitis, Hx COPD - no home oxygen, Hx Pneumonia Denies: Hx Asthma, Hx Tuberculosis Neurological Medical History: Denies: Hx Cerebrovascular Accident, Hx Seizures Renal/ Medical History: Denies: Hx Peritoneal Dialysis Musculoskeltal Medical History: Reports Hx Arthritis Psychiatric Medical History: Reports: Hx Depression Past Surgical History: Reports: Hx Cholecystectomy, Hx Hysterectomy, Hx Orthopedic Surgery - Bilateral feet screws. Denies: Hx Pacemaker - Immunizations Hx Diphtheria, Pertussis, Tetanus Vaccination: No History of Influenza Vaccine for 07/2017 - 12/2017 Season: Unknown Physical Exam - Vital signs Vitals: Temp Pulse Resp BP Pulse Ox 97.7 F 102 H 22 H 154/74 H 95 10/25/18 09:07 10/25/18 09:07 10/25/18 09:07 10/25/18 09:07 10/25/18 09:07 Course - Vital Signs Vital signs: Temp Pulse Resp BP Pulse Ox 97.7 F 102 H 22 H 154/74 H 95 10/25/18 09:07 10/25/18 09:07 10/25/18 09:07 10/25/18 09:07 10/25/18 09:07 Doctor's Discharge - Discharge Referrals: MATT MATHIAS DO [Primary Care Provider] - Follow up as needed
--- NOTE | 2018-10-25 10:20 | RADIOLOGY REPORT (SQ) ---
EXAM DESCRIPTION: HIP RIGHT AP/LATERAL COMPLETED DATE/TIME: 10/25/2018 10:09 am REASON FOR STUDY: fal,injury to back,hip COMPARISON: None. NUMBER OF VIEWS: Two views. TECHNIQUE: AP pelvis and additional frog-leg view of the right hip. LIMITATIONS: None. FINDINGS: MINERALIZATION: Normal. RIGHT HIP: No fracture or dislocation. No worrisome bone lesions. LEFT HIP: No fracture or dislocation. No worrisome bone lesions. PUBIS AND ISCHIUM: No fracture. PELVIS: No fracture. SACRUM: No fracture or dislocation. No worrisome bone lesions. LOWER LUMBAR SPINE: No fracture or dislocation. Mild lower lumbar degenerative change. SOFT TISSUES: No findings. OTHER: No other significant finding. IMPRESSION: NEGATIVE STUDY OF THE RIGHT HIP. NO RADIOGRAPHIC EVIDENCE OF ACUTE INJURY. TECHNICAL DOCUMENTATION: JOB ID: [id number] [employer] All Rights Reserved Reading location - IP/workstation name: [email or web address]
--- NOTE | 2018-10-25 10:22 | RADIOLOGY REPORT (SQ) ---
EXAM DESCRIPTION: KNEE RIGHT 4 VIEWS COMPLETED DATE/TIME: 10/25/2018 10:09 am REASON FOR STUDY: Fall and injury COMPARISON: None. NUMBER OF VIEWS: Four views. TECHNIQUE: AP, lateral, and both oblique radiographic images acquired of the right knee. LIMITATIONS: None. FINDINGS: MINERALIZATION: Normal. BONES: No evidence of fracture or dislocation. Degenerative change with 3 compartment osteophytosis. Subchondral lucency within the medial tibial plateau, likely subchondral cysts. JOINT: No significant joint effusion. Moderate joint space loss within the medial compartment SOFT TISSUES: No soft tissue swelling. No radio-opaque foreign body. OTHER: No other significant finding. IMPRESSION: No evidence of acute bony abnormality. 3 compartment osteoarthritis with moderate medial joint space loss. TECHNICAL DOCUMENTATION: JOB ID: [id number] [employer]- All Rights Reserved Reading location - IP/workstation name: [email or web address]
--- NOTE | 2018-10-25 10:31 | RADIOLOGY REPORT (SQ) ---
EXAM DESCRIPTION: L SPINE WHOLE COMPLETED DATE/TIME: 10/25/2018 10:09 am REASON FOR STUDY: fal,injury to back,hip COMPARISON: None. NUMBER OF VIEWS: Five views including obliques. TECHNIQUE: AP, lateral, oblique, and sacral radiographic images acquired of the lumbar spine. LIMITATIONS: None. FINDINGS: MINERALIZATION: Normal. SEGMENTATION: Normal. No transitional anatomy. ALIGNMENT: Normal. VERTEBRAE: No evidence of fracture. No suspicious osseous lesions. Mild lower lumbar osteophytosis. DISCS: Degenerative disc disease with disc height loss greatest at L4-5 and L5-S1. POSTERIOR ELEMENTS: Facets are well aligned. Lower lumbar facet arthropathy. HARDWARE: None in the spine. PARASPINAL SOFT TISSUES: Normal. PELVIS: Intact as visualized. No fractures or worrisome bone lesions. SI joints intact. OTHER: Prior cholecystectomy. IMPRESSION: No evidence of acute bony abnormality. Moderate lower lumbar degenerative disc disease and facet arthropathy. TECHNICAL DOCUMENTATION: JOB ID: [id number] [employer]- All Rights Reserved Reading location - IP/workstation name: [email or web address]
--- NOTE | 2018-10-25 11:34 | ER Document Report ---
ED Fall - General Chief Complaint: Fall Stated Complaint: RIGHT LEG PAIN Time Seen by Provider: 10/25/18 09:38 Notes: Patient is here for severe pain in her right knee and right buttock and back region after a fall 2 days ago. She was trying to get into a mobile home and her was helping her by pulling her up and she lost her balance when her left leg gave out and she fell onto the floor of the mobile home, directly onto her knees, but primarily on the right knee which is the one that hurts the worse today. She is also complaining of severe pain in her lower lumbar back and right buttock region. Also some pains in the right shoulder and right arm. Patient has chronic back pain and takes Percocet tens and says they are not helping her pain at all. She says that she is been in 2 years. She says that her lower back and buttock region were hurting for the past several weeks, before the fall, but worsened significantly after the fall. Denies any head injury or loss of consciousness. Patient normally requires a wheelchair to get around. TRAVEL OUTSIDE OF THE [place] IN LAST 30 DAYS: No - Related data Allergies/Adverse Reactions: clindamycin Allergy (Verified 10/25/18 09:01) sulfamethoxazole [From Bactrim] Allergy (Verified 10/25/18 09:01) trimethoprim [From Bactrim] Allergy (Verified 10/25/18 09:01) vancomycin Allergy (Verified 10/25/18 09:01) Past Medical History - Social History Smoking Status: Current Every Day Smoker - 1/2 pack/day Chew tobacco use (# tins/day): No Frequency of alcohol use: None Drug Abuse: None Family History: Reviewed & Not Pertinent, Hypertension, Malignancy, Other - ID Patient has suicidal ideation: No Patient has homicidal ideation: No - Past Medical History Cardiac Medical History: Reports: Hx Congestive Heart Failure, Hx Hypertension Denies: Hx Coronary Artery Disease, Hx Heart Attack Pulmonary Medical History: Reports: Hx Bronchitis, Hx COPD - no home oxygen, Hx Pneumonia Denies: Hx Asthma, Hx Tuberculosis Neurological Medical History: Denies: Hx Cerebrovascular Accident, Hx Seizures Renal/ Medical History: Denies: Hx Peritoneal Dialysis Musculoskeletal Medical History: Reports Hx Arthritis Psychiatric Medical History: Reports: Hx Depression Past Surgical History: Reports: Hx Cholecystectomy, Hx Hysterectomy, Hx Orthopedic Surgery - Bilateral feet screws. Denies: Hx Pacemaker - Immunizations Hx Diphtheria, Pertussis, Tetanus Vaccination: No Hx Pneumococcal Vaccination: 07/17/11 Review of Systems - Review of Systems Notes: REVIEW OF SYSTEMS: CONSTITUTIONAL : Denies fever. EENT: Denies eye, ear, nose or mouth or throat pain or other symptoms. CARDIOVASCULAR: Denies chest pain. RESPIRATORY: Denies cough, chest congestion, or shortness of breath. GASTROINTESTINAL: Denies abdominal pain or nausea, vomiting, or diarrhea. GENITOURINARY: Denies difficulty or painful urinating, urinary frequency, blood in urine. MUSCULOSKELETAL: Patient has pain in her lumbar back region and in the right buttock. SKIN: Denies rash or skin lesions. NEUROLOGICAL: Denies LOC or altered mental status. Denies headache. Denies sensory loss or motor deficits. Patient's pain does have some suggestion of dermatomal distribution in the right buttock and hip and thigh. She has pain in the right buttock and hip region down the side of the right side to the knee. She has tenderness of both knees, but significantly more so of the right. It is painful for me to move it in any position. However, stressing the major for ligaments, the medial collateral, lateral collateral, and cruciates did not reveal any laxity of these ligaments. No apparent joint effusion in the right knee. Left knee is normal to exam except for the tenderness anteriorly. ALL OTHER SYSTEMS REVIEWED AND NEGATIVE. Physical Exam - Vital signs Vitals: Temp Pulse Resp BP Pulse Ox 97.7 F 102 H 22 H 154/74 H 95 10/25/18 09:07 10/25/18 09:07 10/25/18 09:07 10/25/18 09:07 10/25/18 09:07 Notes: PHYSICAL EXAMINATION: GENERAL: Appears to be in pain, at times nearly tearful. Vital signs are all essentially normal. HEAD: Atraumatic, normocephalic. EYES: Pupils equal round and reactive to light, extraocular movements intact. ENT: oropharynx clear without exudates. Moist mucous membranes. NECK: Normal range of motion, supple. LUNGS: Breath sounds clear and equal bilaterally. HEART: Regular rate and rhythm without murmurs. ABDOMEN: Soft, nontender. No guarding or rebound. No masses. BACK: No tenderness throughout entire back. EXTREMITIES: Normal range of motion without pain. Patient has pain in the right buttock and lumbar region down the side of the right side to the knee. She has tenderness of both knees, but significantly more so of the right. It is painful for me to move it in any position. However, stressing the major for ligaments, the medial collateral, lateral collateral, and cruciates did not reveal any laxity of these ligaments. No apparent joint effusion in the right knee. Left knee is normal to exam except for the tenderness anteriorly. NEUROLOGICAL: Normal speech, gait not tested because too painful. Normal sensory, motor, and reflex exams. Awake, alert, and oriented x3. Cranial nerves normal. PSYCH: Normal mood, normal affect. SKIN: Warm, dry, no rashes. Course - Re-evaluation Re-evalutation: 10/25/18 18:55 Patient got some relief with Dilaudid 1 mg IM so I gave her a second milligram IM. Also gave her a prescription for some Dilaudid 2 mg tablets to take for the next couple of days. I stressed the importance that she follow-up with her doctor, Dr. Wilkes, Tuesday to reassess and determine other studies that need to be done or further treatment. - Vital Signs Vital signs: Temp Pulse Resp BP Pulse Ox 97.7 F 93 20 124/65 95 10/25/18 09:07 10/25/18 12:11 10/25/18 12:11 10/25/18 12:11 10/25/18 12:11 - Diagnostic Test Radiology results interpreted by me: 10/25/18 18:58 X-rays of the patient's lumbar spine, right hip, and right knee are all essentially normal except for degenerative arthritic changes. Discharge - Discharge Clinical Impression: Fall, Multiple contusions, Muscle strain Condition: Stable Disposition: HOME, SELF-CARE Additional Instructions: MUSCLE STRAIN: You have strained a muscle -- torn the fibers within the muscle. This often occurs with strenuous exertion, or during an injury that suddenly stretches the muscle. The seriousness of a strain varies. Some strains heal within days, others cause problems for months. X-rays cannot show a muscle strain. X-rays are taken only if symptoms suggest that a fracture could be present. The usual treatment of a muscle strain is rest and ice packs. Sometimes, a sling, splint, or crutches may be necessary to rest the muscle. The muscle can be used again once pain subsides. Severe strains require a special exercise and stretching program to prevent permanent stiffness and disability. Your doctor will advise you if this will be necessary. Call the doctor immediately if pain or swelling becomes severe, or if numbness or discoloration develop. CONTUSION: Your injury has resulted in a contusion -- a crushing of the deep tissues. No injury to important structures was detected during the physician's exam. Contusions vary in the amount of pain they cause, and in the length of time required for healing. Typically, the area will become bruised, and will remain painful to touch for two or three weeks. However, most patients are back to working and playing within a few days. After the initial period of rest and cold-packs, your symptoms (together with the doctor's recommendations) will determine how rapidly you can get back to full activity. Usually this means "do what feels okay, but don't do things that hurt." If re-examination was recommended, it's important to follow up as instructed. Call the doctor or return any time if pain increases, if swelling becomes severe, if you develop numbness or weakness in an injured extremity, or if any other alarming symptoms occur. LOW BACK PAIN: Three out of every four people will have an episode of disabling back pain during their lifetime. Most commonly the pain is due to straining of the muscles and ligaments in the low back. Usual treatment includes: (1) Rest on a firm surface. Avoid lying on your stomach. (2) Ice pack the painful area. After a few days, gentle heat may be used intermittently to relax the area, or ice packs can be continued. (3) Medication may be needed -- muscle relaxers and antiinflammatory medicines are commonly used. (4) As the back improves, exercises are prescribed to strengthen the back and abdominal muscles. Your doctor will advise you on the proper care for your back at each stage in your recovery. You may be better in a few days -- or healing may take several weeks. If new symptoms of a "herniated disc" (radiation of pain, numbness, or tingling down the back of the leg or weakness in the leg) occur, you should be r e-examined. Further testing may be necessary. Arthritis Your symptoms are due to arthritis. Arthritis is an inflammation of the joints. There are many types -- osteoarthritis (due to "wear and tear"), auto- immmune arthritis (such as rheumatoid, lupus, Addis's, and others), and crystal-induced arthritis (such as gout and pseudogout). The physician's examination, combined with laboratory tests, will determine the cause of your arthritis. All types of arthritis are treated with antiinflammatory medications. Other medication may be required for special types of arthritis, or if your problem does not respond to the antiinflammatory medicine. Local warmth may be helpful. Move the involved joints through the full range of motion daily. Mild exercise is usually still possible for most persons with arthritis (ask your physician). Swimming provides good exercise without damaging the joints. Contact the physician if you are worsening in any way. PAIN MEDICATION INJECTION: You have received an injection of a pain medication. You should experience significant pain relief within 45 minutes. If this medication is a narcotic, it will impair your judgement, slow your reaction time and make you sleepy (as well as relieve your pain). Narcotics also can cause nausea. You should not drive, work with machinery, or perform any task requiring mental alertness until all effects of the medication are gone -- six to eight hours. Do not take any alcohol, or sedatives, and do not take any other medication without checking with your physician. ORAL NARCOTIC MEDICATION: You have been given a prescription for pain control. This medication is a narcotic. It's best taken with food, as nausea can result if taken on an empty stomach. Don't operate machinery or drive within six hours of taking this medication. Do not combine this medicine with alcohol, or with any medication which can cause sedation (such as cold tablets or sleeping pills) unless you get permission from the physician. Narcotics tend to cause constipation. If possible, drink plenty of fluids and eat a diet high in fiber and fruits. FOLLOW-UP CARE: If you have been referred to a physician for follow-up care, call the physicians office for an appointment as you were instructed or within the next two days. If you experience worsening or a significant change in your symptoms, notify the physician immediately or return to the Emergency Department at any time for re-evaluation. Today, all of your x-rays show no fractures or dislocations. There are varying degrees of arthritis shown on the x-rays. Call your doctor, Dr. Wilkes, today for a recheck appointment Tuesday in his office. If your symptoms do not resolve, he will likely need an MRI of your back and knee. Prescriptions: Hydromorphone HCl [Dilaudid 2 mg Tablet] 2 mg PO Q4HP PRN #15 tablet PRN Reason: Ondansetron [Zofran Odt 4 mg Tablet] 1 - 2 tab PO Q4H PRN #15 tab.rapdis PRN Reason: For Nausea/Vomiting Referrals: MATT WILKES DO [Primary Care Provider] - 10/27/18
[2018-10-25 12:11] VITALS: BP 124/65
== END 2018-10-25 12:11 | disposition home or self-care (01) ==
LOC: ER 08:58
DX: T14.8XXA Other injury of unspecified body region, initial encounter (principal); M25.561 Pain in right knee; W19.XXXA Unspecified fall, initial encounter; Y93.89 Activity, other specified; Y92.029 Unspecified place in mobile home as the place of occurrence of the external cause; M25.552 Pain in left hip; M51.36 Other intervertebral disc degeneration, lumbar region; M51.37 Other intervertebral disc degeneration, lumbosacral region; G89.29 Other chronic pain; Z79.891 Long term (current) use of opiate analgesic; Z88.1 Allergy status to other antibiotic agents; F17.210 Nicotine dependence, cigarettes, uncomplicated; I10 Essential (primary) hypertension; J44.9 Chronic obstructive pulmonary disease, unspecified
CPT/HCPCS: 99283; 96372; 73502; 73564; 72110; A9270; J1170; S0119

== ENCOUNTER → 2018-11-02 | Outpatient (CLI) | payer MEDICARE, MEDICAID ==
--- NOTE | 2018-11-02 13:07 | RADIOLOGY REPORT (SQ) ---
EXAM DESCRIPTION: ANKLE LEFT COMPLETE COMPLETED DATE/TIME: 11/02/2018 11:17 am REASON FOR STUDY: PAIN IN LEFT ANKLE AND JOINTS OF LEFT FOOT M25.572 PAIN IN LEFT ANKLE AND JOINTS OF LEFT FOOT COMPARISON: None. NUMBER OF VIEWS: Three views. TECHNIQUE: AP, lateral, and oblique radiographic images acquired of the left ankle. LIMITATIONS: None. FINDINGS: MINERALIZATION: Normal. BONES: No acute fracture or dislocation. No worrisome bone lesions. JOINTS: No effusions. SOFT TISSUES: No soft tissue swelling. No foreign body. OTHER: Orthopedic screw 5th metatarsal. IMPRESSION: NEGATIVE STUDY OF THE LEFT ANKLE. NO RADIOGRAPHIC EVIDENCE OF ACUTE INJURY. TECHNICAL DOCUMENTATION: JOB ID: [id number] [employer]- All Rights Reserved Reading location - IP/workstation name: [email or web address]
== END ==
LOC: RAD 10:51
PROVIDERS: ATTEND Family Medicine
DX: M25.572 Pain in left ankle and joints of left foot (principal)

== ENCOUNTER 2019-01-13 18:31 | Observation (INO) | payer MEDICARE, MEDICAID ==
[2019-01-13] MEDS ORDERED: IPRATROPIUM/ALBUTEROL 0.5-2.5 MG/3 ML AMPUL NEB ONE ×3 (18:53→23:19)
[2019-01-13] MEDS ORDERED: LIDOCAINE 1% INJ-PF (10 MG/ML) 30 ML SDV NEB ONE (18:54)
--- NOTE | 2019-01-13 18:58 | ER Document Report ---
ED Medical Screen (RME) - General Chief Complaint: Flu Symptoms Stated Complaint: COUGH Time Seen by Provider: 01/13/19 18:47 Primary Care Provider: MATT MATHIAS DO [Primary Care Provider] - Follow up as needed Notes: 58-year-old female patient comes emergency room complaining of 4-day history of cough, congestion, yellow to white productive cough. She did not get a flu shot this year. She takes Percocet 10 mg 3 times daily along with Lyrica and continuous release oxycodone. She does continue to smoke at least a half a pack a day. Review exam shows morbidly obese female patient with frequent dry harsh honking- type cough with end expiratory wheezing. Lower extremities show chronic thickening of the skin with a chronic dusky erythema. She is somewhat hoarse. I have greeted and performed a rapid initial assessment of this patient. A comprehensive ED assessment and evaluation of the patient, analysis of test results and completion of the medical decision making process will be conducted by additional ED providers. TRAVEL OUTSIDE OF THE [place] IN LAST 30 DAYS: No - Related Data Allergies/Adverse Reactions: clindamycin Allergy (Verified 01/13/19 18:32) sulfamethoxazole [From Bactrim] Allergy (Verified 01/13/19 18:32) trimethoprim [From Bactrim] Allergy (Verified 01/13/19 18:32) vancomycin Allergy (Verified 01/13/19 18:32) Past Medical History - Social History Chew tobacco use (# tins/day): No Frequency of alcohol use: None Drug Abuse: None - Past Medical History Cardiac Medical History: Reports: Hx Congestive Heart Failure, Hx Hypertension Denies: Hx Coronary Artery Disease, Hx Heart Attack Pulmonary Medical History: Reports: Hx Bronchitis, Hx COPD - no home oxygen, Hx Pneumonia Denies: Hx Asthma, Hx Tuberculosis Neurological Medical History: Denies: Hx Cerebrovascular Accident, Hx Seizures Renal/ Medical History: Denies: Hx Peritoneal Dialysis Musculoskeltal Medical History: Reports Hx Arthritis Psychiatric Medical History: Reports: Hx Depression Past Surgical History: Reports: Hx Cholecystectomy, Hx Hysterectomy, Hx Orthopedic Surgery - Bilateral feet screws. Denies: Hx Pacemaker - Immunizations Hx Diphtheria, Pertussis, Tetanus Vaccination: No History of Influenza Vaccine for 07/2017 - 12/2017 Season: Unknown Physical Exam - Vital signs Vitals: Temp Pulse Resp BP Pulse Ox 100 F 114 H 22 H 133/78 H 100 01/13/19 18:33 01/13/19 18:33 01/13/19 18:33 01/13/19 18:33 01/13/19 18:33 Course - Vital Signs Vital signs: Temp Pulse Resp BP Pulse Ox 100 F 114 H 22 H 133/78 H 100 01/13/19 18:33 01/13/19 18:33 01/13/19 18:33 01/13/19 18:33 01/13/19 18:33 Doctor's Discharge - Discharge Referrals: MATT MATHIAS DO [Primary Care Provider] - Follow up as needed
--- NOTE | 2019-01-13 19:16 | RADIOLOGY REPORT (SQ) ---
EXAM DESCRIPTION: CHEST 2 VIEWS COMPLETED DATE/TIME: 01/13/2019 7:08 pm REASON FOR STUDY: productive cough COMPARISON: 05/02/2018. EXAM PARAMETERS: NUMBER OF VIEWS: two views TECHNIQUE: Digital Frontal and Lateral radiographic views of the chest acquired. RADIATION DOSE: NA LIMITATIONS: none FINDINGS: LUNGS AND PLEURA: No opacities, masses or pneumothorax. No pleural effusion. MEDIASTINUM AND HILAR STRUCTURES: No masses or contour abnormalities. HEART AND VASCULAR STRUCTURES: Heart normal size. No evidence for failure. BONES: No acute findings. HARDWARE: None in the chest. OTHER: No other significant finding. IMPRESSION: NO ACUTE RADIOGRAPHIC FINDING IN THE CHEST. TECHNICAL DOCUMENTATION: JOB ID: [id number] [employer]- All Rights Reserved Reading location - IP/workstation name: [email or web address]
[2019-01-13 20:24] LABS: ABSOLUTE LYMPHOCYTES (AUTO) 0.5 10^3/uL (0.5-4.7); ABSOLUTE MONOCYTES (AUTO) 0.3 10^3/uL (0.1-1.4); ABSOLUTE NEUT (AUTO) 2.8 10^3/uL (1.7-8.2); BASOPHILS % (AUTO) 0.3 % (0-2); EOSINOPHILS % (AUTO) 0.9 % (0-6); HEMATOCRIT 37.2 % (36.0-47.0); HEMOGLOBIN 12.3 g/dL (12.0-15.5); LYMPHOCYTES % (AUTO) 13.5 % (13-45); MEAN CORPUSCULAR HEMOGLOBIN 27.1 pg (27.0-33.4); MEAN CORPUSCULAR VOLUME 82 fl (80-97); MONOCYTES % (AUTO) 7.8 % (3-13); PLATELET COUNT 159 10^3/uL (150-450); RED BLOOD COUNT 4.53 10^6/uL (3.72-5.28); RED CELL DISTRIBUTION WIDTH 16.1 % (11.5-14.0); SEGMENTED NEUTROPHILS % (AUTO) 77.5 % (42-78); TOTAL CELLS COUNTED % (AUTO) 100 %; WHITE BLOOD COUNT 3.6 10^3/uL (4.0-10.5)
[2019-01-13] MEDS ORDERED: METHYLPREDNISOLONE INJ 125 MG/2 ML SDV IV ONE (20:36)
[2019-01-13 20:39] LABS: ALANINE AMINOTRANSFERASE 34 U/L (9-52); ALBUMIN 3.5 g/dL (3.5-5.0); ALKALINE PHOSPHATASE 107 U/L (38-126); ANION GAP 11 (5-19); ASPARTATE AMINO TRANSFERASE 41 U/L (14-36); BILIRUBIN,DIRECT 0.3 mg/dL (0.0-0.4); BILIRUBIN,TOTAL 0.3 mg/dL (0.2-1.3); BLOOD UREA NITROGEN 10 mg/dL (7-20); CALCIUM 9.2 mg/dL (8.4-10.2); CARBON DIOXIDE 27 mmol/L (22-30); CHLORIDE 100 mmol/L (98-107); GLUCOSE 113 mg/dL (75-110); POTASSIUM 3.4 mmol/L (3.6-5.0); SODIUM 137.8 mmol/L (137-145); TOTAL PROTEIN 6.6 g/dL (6.3-8.2)
[2019-01-13] MEDS ORDERED: MORPHINE SULFATE 10 MG/ML INJ IV ONE (20:39)
[2019-01-13] MEDS ORDERED: ONDANSETRON HCL INJ/PF 4 MG/2 ML SDV IV ONE (20:39)
--- NOTE | 2019-01-13 20:39 | ER Document Report ---
ED Respiratory Problem - General Chief Complaint: Flu Symptoms Stated Complaint: COUGH Time Seen by Provider: 01/13/19 18:47 Notes: Patient is a 58-year-old female that comes to the emergency department for chief complaint of difficulty breathing, productive cough, chills for the past 4 days. She comes by EMS, found to have a fever at 100.9 F, given 975 mg Tylenol. She reports yellowish sputum production. She states she has vomited couple of times, mainly after coughing. She reports her entire body aching. She has not had the influenza vaccine. She is not on home oxygen. Past medical history of asthma, she smokes half a pack a day, she also has a history of chronic back pain on Percocet and Lyrica. Primary Care is Dr. Wilkes. TRAVEL OUTSIDE OF THE [place] IN LAST 30 DAYS: No - Related Data Allergies/Adverse Reactions: clindamycin Allergy (Verified 01/13/19 18:32) sulfamethoxazole [From Bactrim] Allergy (Verified 01/13/19 18:32) trimethoprim [From Bactrim] Allergy (Verified 01/13/19 18:32) vancomycin Allergy (Verified 01/13/19 18:32) Past Medical History - General Information source: Patient - Social History Smoking Status: Current Every Day Smoker Chew tobacco use (# tins/day): No Frequency of alcohol use: None Drug Abuse: None Lives with: Family Family History: Reviewed & Not Pertinent, Hypertension, Malignancy, Other - [place] Patient has suicidal ideation: No Patient has homicidal ideation: No - Past Medical History Cardiac Medical History: Reports: Hx Congestive Heart Failure, Hx Hypertension Denies: Hx Coronary Artery Disease, Hx Heart Attack Pulmonary Medical History: Reports: Hx Bronchitis, Hx COPD - no home oxygen, Hx Pneumonia Denies: Hx Asthma, Hx Tuberculosis Neurological Medical History: Denies: Hx Cerebrovascular Accident, Hx Seizures Renal/ Medical History: Denies: Hx Peritoneal Dialysis Musculoskeletal Medical History: Reports Hx Arthritis Psychiatric Medical History: Reports: Hx Depression Past Surgical History: Reports: Hx Cholecystectomy, Hx Hysterectomy, Hx Orthopedic Surgery - Bilateral feet screws. Denies: Hx Pacemaker - Immunizations Hx Diphtheria, Pertussis, Tetanus Vaccination: No Hx Pneumococcal Vaccination: 07/17/11 Review of Systems - Review of Systems Constitutional: See HPI EENT: No symptoms reported Cardiovascular: No symptoms reported Respiratory: See HPI Gastrointestinal: No symptoms reported Genitourinary: No symptoms reported Female Genitourinary: No symptoms reported Musculoskeletal: See HPI Skin: No symptoms reported Hematologic/Lymphatic: No symptoms reported Neurological/Psychological: No symptoms reported Physical Exam - Vital signs Vitals: Temp Pulse Resp BP Pulse Ox 100 F 114 H 22 H 133/78 H 100 01/13/19 18:33 01/13/19 18:33 01/13/19 18:33 01/13/19 18:33 01/13/19 18:33 - Notes Notes: GENERAL: Alert, somewhat ill-appearing, interactive HEAD: Normocephalic, atraumatic. EYES: Pupils equal, round, and reactive to light. Extraocular movements intact. ENT: Oral mucosa moist, tongue midline. Oropharynx unremarkable. Airway patent. Nares patent, no nasal septal hematoma, TM's intact. NECK: Full range of motion. Supple. Trachea midline. LUNGS: Decreased breath sounds, a few scattered rhonchi, expiratory wheezes, mild tachypnea. HEART: Borderline tachycardia, normal rhythm, no murmur. ABDOMEN: Soft, non-tender. Non-distended. Bowel sounds present in all 4 quadrants. GENITOURINARY: Deferred EXTREMITIES: Moves all 4 extremities spontaneously. Chronic staining of the lower extremities. No pitting edema. Normal distal pulses and sensation. BACK: no cervical, thoracic, lumbar midline tenderness. No saddle anesthesia, normal distal neurovascular exam. NEUROLOGICAL: Alert and oriented x3. Normal speech. [cranial nerves II through XII grossly intact]. SKIN: Flushed, hot Course - Re-evaluation Re-evalutation: On initial evaluation patient with tachypnea, decreased breath sounds, expiratory wheezes, coughing episodes. Patient had completed 1 DuoNeb already, initiating magnesium, Solu-Medrol, additional DuoNeb's. She was provided with pain and nausea medication as well. On reevaluation she is doing better. Tachycardia resolved, patient is borderline hypoxic (although is on nebulizer), patient appears more comfortable. Chest x-ray does not show pneumonia, influenza is negative. CBC shows minimal leukopenia, chemistry unremarkable except for mild hypokalemia which is probably from the nebulizer treatments. Venous blood gas unremarkable. On 3 L nasal cannula patient has been dropping down to the 87% oxygen saturation with good Plath, she averages 89-91%. She still has recurrent wheezes on reevaluation's. She reports shortness of breath significantly worse than her baseline and does not feel she can ambulate. Patient is not on home oxygen. No history of hypoxia per previous records. Because of patient's fever, hypoxia, oxygen requirement, COPD exacerbation, discussed with Dr. Muhammad, will discuss with hospitalist for admission. Discussed with Dr. Pham, recommends BNP evaluation. BMP resulted, unremarkable. Discussed with Dr. Pham again, patient will be admitted to telemetry observation. - Vital Signs Vital signs: Temp Pulse Resp BP Pulse Ox 100 F 87 22 H 149/64 H 89 L 01/13/19 18:33 01/14/19 03:47 01/14/19 03:47 01/14/19 00:31 01/14/19 03:48 - Laboratory Result Diagrams: 01/13/19 20:10 01/13/19 20:10 Laboratory results interpreted by me: 01/13/19 01/13/19 20:10 20:10 WBC 3.6 L RDW 16.1 H Potassium 3.4 L Glucose 113 H AST 41 H Discharge - Discharge Clinical Impression: Hypoxia COPD (chronic obstructive pulmonary disease) Qualifiers: COPD type: COPD with acute exacerbation Qualified Code(s): J44.1 - Chronic obstructive pulmonary disease with (acute) exacerbation Fever Qualifiers: Fever type: unspecified Qualified Code(s): R50.9 - Fever, unspecified Condition: Stable Disposition: ADMITTED OBSERVATION Admitting Provider: Hospitalist Unit Admitted: Telemetry
[2019-01-13 20:46] LABS: A TYPE INFLUENZA AG NEGATIVE (NEGATIVE); B INFLUENZA AG NEGATIVE (NEGATIVE)
[2019-01-13] MEDS: MAGNESIUM SULFATE/D5W 1 GM/100 ML RTUPB IV SCH ×2 (21:02→21:51)
[2019-01-13 23:39] LABS: VENOUS BLOOD BASE EXCESS 1.6 mmol/L; VENOUS BLOOD HCO3 26.5 mmol/L (20-32); VENOUS BLOOD PCO2 43.1 mmHg (35-63); VENOUS BLOOD PH 7.41 (7.30-7.42)
[2019-01-14] MEDS ORDERED: DOXYCYCLINE HYCLATE INJ 100 MG VIAL IV ONE ×2 (00:45→04:15)
[2019-01-14] MEDS ORDERED: IPRATROPIUM/ALBUTEROL 0.5-2.5 MG/3 ML AMPUL NEB PRN (01:52)
[2019-01-14] MEDS ORDERED: GUAIFENESIN SYRP 200 MG/10 ML UDC PO PRN (01:52)
[2019-01-14] MEDS ORDERED: AZITHROMYCIN INJ 500 MG VIAL IV PRN (02:12)
[2019-01-14] MEDS ORDERED: CHLORPHENIRAMINE MALEATE 4 MG TABLET PO SCH ×2 (03:00→12:00)
[2019-01-14] MEDS ORDERED: CEFTRIAXONE 1 GM/D5W RTU 1 GM/50 ML RTUPB IV ONE ×2 (03:00→07:00)
[2019-01-14] MEDS ORDERED: TOPIRAMATE 25 MG TABLET PO ONE (03:00)
[2019-01-14] MEDS ORDERED: AZITHROMYCIN 500 MG in DEXTROSE 5%-WATER 250 ML IV ONE (03:00)
[2019-01-14] MEDS: IPRATROPIUM/ALBUTEROL 0.5-2.5 MG/3 ML AMPUL NEB SCH ×2 (03:43→09:27)
--- NOTE | 2019-01-14 05:24 | PDOC H&P ---
History of Present Illness Admission Date/PCP: 01/14/19 01:56 MATT MATHIAS DO Patient complains of: Shortness of breath History of Present Illness: DERECK PHELPS is a 58 year old female with a past medical history of COPD, morbid obesity, tobacco, restless legs, fibromyalgia, osteoarthritis, opiate dependent chronic pain, deconditioning able to ambulate 15 feet with assistance and obstructive sleep apnea with BiPAP noncompliance. She presents with 4 days of shortness of breath, productive cough, fever and chills prompting a call to EMS who find her with a temperature of 100.9 and hypoxia of 86% on room air. She is brought to the emergency room requiring oxygen, albuterol and Atrovent, with use of accessory muscles and retractions yet refusing BiPAP. Past Medical History Cardiac Medical History: Reports: Congestive Heart Failure, Hypertension Denies: Coronary Artery Disease, Myocardial Infarction Pulmonary Medical History: Reports: Bronchitis, Chronic Obstructive Pulmonary Disease (COPD) - no home oxygen, Pneumonia Denies: Asthma, Tuberculosis Neurological Medical History: Denies: Seizures Musculoskeltal Medical History: Reports: Arthritis Psychiatric Medical History: Reports: Depression, Tobacco Dependency Hematology: Denies: Anemia Past Surgical History Past Surgical History: Reports: Cholecystectomy, Hysterectomy, Orthopedic Surgery - Bilateral feet screws Denies: Pacemaker Social History Information Source: Patient, [facility] Records Lives with: Family Smoking Status: Current Every Day Smoker Frequency of Alcohol Use: None Hx Recreational Drug Use: No Drugs: None Hx Prescription Drug Abuse: No Family History Family History: Hypertension, Malignancy, Other - [place] Parental Family History Reviewed: Yes Children Family History Reviewed: Yes Sibling(s) Family History Reviewed.: Yes Medication/Allergy Home Medications: Topiramate [Topamax] 50 mg PO BID 01/04/12 Pregabalin [Lyrica 50 mg Capsule] 150 mg PO TID 01/05/12 Mirabegron [Myrbetriq] 50 mg PO DAILY 03/05/18 Venlafaxine HCl ER [Effexor Xr 75 mg Cap.sr] 75 mg PO QAM 03/05/18 Fluticasone/Salmeterol [Advair 100-50 Diskus 28 Dose] 1 inh IH Q12H #1 inhaler 03/07/18 Losartan Potassium [Cozaar 50 mg Tablet] 50 mg PO DAILY 05/02/18 Omeprazole 40 mg PO BID 05/02/18 Pramipexole Di-HCl [Mirapex] 1.5 mg PO TID 05/02/18 Hydromorphone HCl [Dilaudid 2 mg Tablet] 2 mg PO Q4HP PRN #15 tablet 10/25/18 Ondansetron [Zofran Odt 4 mg Tablet] 1 - 2 tab PO Q4H PRN #15 tab.rapdis 10/25/18 Allergies/Adverse Reactions: clindamycin Allergy (Verified 01/13/19 18:32) sulfamethoxazole [From Bactrim] Allergy (Verified 01/13/19 18:32) trimethoprim [From Bactrim] Allergy (Verified 01/13/19 18:32) vancomycin Allergy (Verified 01/13/19 18:32) Review of Systems Constitutional: ABSENT: chills, fever(s), headache(s), weight gain, weight loss Eyes: ABSENT: visual disturbances Ears: ABSENT: hearing changes Cardiovascular: ABSENT: chest pain, dyspnea on exertion, edema, orthropnea, palpitations Respiratory: ABSENT: cough, hemoptysis Gastrointestinal: ABSENT: abdominal pain, constipation, diarrhea, hematemesis, hematochezia, nausea, vomiting Genitourinary: ABSENT: dysuria, hematuria Musculoskeletal: ABSENT: joint swelling Integumentary: ABSENT: rash, wounds Neurological: ABSENT: abnormal gait, abnormal speech, confusion, dizziness, focal weakness, syncope Psychiatric: ABSENT: anxiety, depression, homidical ideation, suicidal ideation Endocrine: ABSENT: cold intolerance, heat intolerance, polydipsia, polyuria Hematologic/Lymphatic: ABSENT: easy bleeding, easy bruising Physical Exam Vital Signs: Temp Pulse Resp BP Pulse Ox 98.4 F 87 16 128/69 H 91 L 01/14/19 04:01 01/14/19 03:47 01/14/19 04:31 01/14/19 04:31 01/14/19 04:31 Intake & Output 01/12/19 01/13/19 01/14/19 11:59 11:59 11:59 Intake Total 100 Balance 100 Weight 168.2 kg General appearance: PRESENT: cooperative, mild distress, morbidly obese, well- developed, well-nourished Head exam: PRESENT: atraumatic, normocephalic Eye exam: PRESENT: conjunctiva pink, EOMI, PERRLA. ABSENT: scleral icterus Ear exam: PRESENT: normal external ear exam Mouth exam: PRESENT: moist, tongue midline Neck exam: ABSENT: carotid bruit, JVD, lymphadenopathy, thyromegaly Respiratory exam: PRESENT: accessory muscle use, crackles, retraction, symmetrical, tachypnea. ABSENT: rales, rhonchi, wheezes Cardiovascular exam: PRESENT: RRR. ABSENT: diastolic murmur, rubs, systolic murmur Pulses: PRESENT: normal dorsalis pedis pul Vascular exam: PRESENT: normal capillary refill GI/Abdominal exam: PRESENT: normal bowel sounds, soft. ABSENT: distended, guarding, mass, organolmegaly, rebound, tenderness Rectal exam: PRESENT: deferred Extremities exam: PRESENT: full ROM, +1 edema. ABSENT: calf tenderness, clubbing, pedal edema Neurological exam: PRESENT: alert, awake, oriented to person, oriented to place, oriented to time, oriented to situation, CN II-XII grossly intact. ABSENT: motor sensory deficit Psychiatric exam: PRESENT: appropriate affect, normal mood. ABSENT: homicidal ideation, suicidal ideation Skin exam: PRESENT: dry, intact, warm. ABSENT: cyanosis, rash Results Laboratory Results: 01/13/19 20:10 01/13/19 20:10 01/13/19 01/13/19 01/13/19 20:10 20:10 23:25 WBC 3.6 L RBC 4.53 Hgb 12.3 Hct 37.2 MCV 82 MCH 27.1 MCHC 33.0 RDW 16.1 H Plt Count 159 Seg Neutrophils % 77.5 Lymphocytes % 13.5 Monocytes % 7.8 Eosinophils % 0.9 Basophils % 0.3 Absolute Neutrophils 2.8 Absolute Lymphocytes 0.5 Absolute Monocytes 0.3 Absolute Eosinophils 0.0 Absolute Basophils 0.0 VBG pH 7.41 VBG pCO2 43.1 VBG HCO3 26.5 VBG Base Excess 1.6 Sodium 137.8 Potassium 3.4 L Chloride 100 Carbon Dioxide 27 Anion Gap 11 BUN 10 Creatinine 0.79 Est GFR ( Amer) > 60 Est GFR (Non-Af Amer) > 60 Glucose 113 H Calcium 9.2 Total Bilirubin 0.3 AST 41 H ALT 34 Alkaline Phosphatase 107 Total Protein 6.6 Albumin 3.5 01/13/19 20:10 NT-Pro-B Natriuret Pep 224 Impressions: Chest X-Ray 01/13/19 18:53 IMPRESSION: NO ACUTE RADIOGRAPHIC FINDING IN THE CHEST. Assessment and Plan - Diagnosis (1) Acute bronchitis Is this a current diagnosis for this admission?: Yes Plan: Telemetry observation, empiric antibiotics, incentive spirometry with PEEP, flutter valve. Follow-up pulse oximetry (2) COPD (chronic obstructive pulmonary disease) Qualifiers: COPD type: COPD with acute exacerbation Qualified Code(s): J44.1 - Chronic obstructive pulmonary disease with (acute) exacerbation Is this a current diagnosis for this admission?: Yes Plan: Incentive spirometry, supplemental oxygen and above (3) Morbid obesity Is this a current diagnosis for this admission?: Yes Plan: Morbid obesity will evaluate for metabolic cause with evaluation of thyroid function and dietitian consultation (4) Tobacco dependence Is this a current diagnosis for this admission?: Yes Plan: Tobacco Dependence patient received tobacco cessation counseling and offered nicotine replacement options (5) Obstructive sleep apnea Is this a current diagnosis for this admission?: Yes Plan: Patient intolerant of BiPAP. Avoid narcotics and sedatives. - Time Time Spent with patient: 25-34 minutes
[2019-01-14] MEDS ORDERED: PANTOPRAZOLE SODIUM 40 MG TABLET.DR PO SCH ×2 (06:00→16:00)
[2019-01-14] MEDS ORDERED: HEPARIN SOD (PORCINE) 5,000 UNIT/ML 1 ML SYRINGE SUBCUT SCH (06:00)
[2019-01-14] MEDS ORDERED: VENLAFAXINE HCL 75 MG CAP.SR.24H PO SCH (08:00)
[2019-01-14] MEDS ORDERED: FLUTICASONE NASAL SPRAY 50 MCG/SPRY 120 SPRAY/16 GM NASL SCH (10:00)
[2019-01-14] MEDS ORDERED: LOSARTAN POTASSIUM 50 MG TABLET PO SCH (10:00)
[2019-01-14] MEDS ORDERED: AZITHROMYCIN 500 MG in DEXTROSE 5%-WATER 250 ML IV SCH ×2 (10:00→22:00)
[2019-01-14] MEDS ORDERED: FLUTICASONE/VILANTEROL 100-25 MCG/DOSE IH SCH (10:00)
[2019-01-14] MEDS ORDERED: TOPIRAMATE 25 MG TABLET PO SCH ×3 (10:00→22:00)
[2019-01-14] MEDS ORDERED: ALBUTEROL SULFATE HFA (90 MCG/PUFF) 200 PUFF/8.5 GM MDI IH PRN (12:05)
[2019-01-14] MEDS ORDERED: (PENDING PHARMACY ID) (Oxycodone Hcl/Acetaminophen [Percocet 10-325 Mg Tablet] 1 TAB) PO PRN (12:05)
[2019-01-14] MEDS ORDERED: OXYCODONE-ACETAMINOPHEN 5-325 MG TABLET PO PRN (12:30)
[2019-01-14] MEDS ORDERED: OXYCODONE HCL IR 5 MG TABLET PO PRN (12:31)
[2019-01-14 13:13] VITALS: BP 145/61
[2019-01-14] MEDS ORDERED: (PENDING PHARMACY ID) (Pramipexole Di-Hcl [Pramipexole Dihydrochloride] 1.5 MG) PO SCH (14:00)
[2019-01-14] MEDS ORDERED: PRAMIPEXOLE DI-HCL 0.5 MG TABLET PO SCH (14:00)
[2019-01-14] MEDS ORDERED: CEFTRIAXONE 1 GM/D5W RTU 1 GM/50 ML RTUPB IV SCH (18:00)
[2019-01-14] MEDS ORDERED: (PENDING PHARMACY ID) (Oxycodone Myristate [Xtampza Er] 13.5 MG) PO SCH (22:00)
[2019-01-14] MEDS ORDERED: (PENDING PHARMACY ID) (Pregabalin [Lyrica] 225 MG) PO SCH (22:00)
[2019-01-14] MEDS ORDERED: PREGABALIN 75 MG CAPSULE PO SCH (22:00)
[2019-01-15] MEDS ORDERED: CEFTRIAXONE 1 GM/D5W RTU 1 GM/50 ML RTUPB IV SCH (06:00)
[2019-01-15] MEDS ORDERED: LOSARTAN POTASSIUM 50 MG TABLET PO SCH (10:00)
[2019-01-15] MEDS ORDERED: (PENDING PHARMACY ID) (Losartan/Hydrochlorothiazide [Losartan-Hctz 50-12.5 Mg Tab] 1 TAB) PO SCH (10:00)
[2019-01-15] MEDS ORDERED: AZITHROMYCIN 250 MG TABLET PO SCH (10:00)
[2019-01-15] MEDS ORDERED: HYDROCHLOROTHIAZIDE 12.5 MG TABLET PO SCH (10:00)
[2019-01-15] MEDS ORDERED: MELOXICAM 7.5 MG TABLET PO SCH (10:00)
[2019-01-15] MEDS ORDERED: TOPIRAMATE 100 MG TABLET PO SCH (10:00)
--- NOTE | 2019-01-16 14:58 | PDOC DISCHARGE SUMMARY ---
General - Admit/Disc Date/PCP Admission Date/Primary Care Provider: 01/14/19 01:56 MATT MATHIAS, DO Discharge Date: 01/14/19 - Discharge Diagnosis (1) Acute bronchitis Is this a current diagnosis for this admission?: Yes Summary: Improved; patient is now maintaining oxygen saturations while ambulatory on room air. She does continue to have a productive cough. She remained afebrile overnight. She is requesting to be discharged to home. She is provided a prescription for azithromycin to complete course of therapy. She is instructed to STOP smoking. She is advised to return to the emergency department as needed for concerning symptoms. (2) COPD exacerbation Is this a current diagnosis for this admission?: Yes Summary: Multifactorial secondary to acute bronchitis and continued tobacco use. She was admitted to the medical floor and provided supplemental oxygen, scheduled and as needed nebulizer treatments, and trial on biPAP. Pt adamantly refused BiPAP and states that she has been told that she would benefit from CPAP at home but can not tolerate it either due to claustrophobia. She was provided IV Solu-Medrol while in the ED and transitioned to p.o. prednisone at discharge. She is also provided prescriptions for tessalon perles, mucinex, and flonase. At discharge she is in stable condition with adequate improvement in her symptoms. She is offered an additional day for continued monitoring/management of exacerbation which is declined. She is instructed to STOP smoking and to continue Incentive spirometer and Flutter valve at home. She is instructed to follow up with PCP within 1 week and to return to the emergency department as needed for concerning symptoms. (3) Morbid obesity Is this a current diagnosis for this admission?: Yes Summary: Dietary discretion and lifestyle modifications are advised. (4) Obstructive sleep apnea Is this a current diagnosis for this admission?: Yes Summary: Patient reports Hx RADHA and recommendations for CPAP which she does not tolerate. She is encouraged to loose weight to minimize RADHA symptoms. She is further advised that her pain and anxiety medications put her at higher risk for RADHA/respiratory depression. Recommend review, and reduction, of sedating medications at follow up visit with PCP. (5) Tobacco dependence Is this a current diagnosis for this admission?: Yes Summary: Smoking cessation is encouraged, nicotine replacement therapy is provided. Patient is agreeable to Rx for NicoDerm patches. - Additional Information Discharge Diet: Cardiac, Diabetic Discharge Activity: Activity As Tolerated, Balance Activity w/Rest, Walk Frequently, Weigh Daily Prescriptions: Azithromycin [Zithromax 250 mg Tablet] 250 mg PO DAILY #4 tablet Benzonatate [Tessalon Perle 100 mg Capsule] 100 mg PO Q8HP PRN #12 cap PRN Reason: Fluticasone Propionate [Flonase Nasal [place] 50 Mcg/[place] 16 gm] 2 spray NASL Q12 #1 spray.pump Guaifenesin [Mucinex] 600 mg PO BID #14 tablet.sa Nicotine [Nicoderm 14 mg/24 Hr Transdermal Patch] 1 patch TD DAILY #30 patch.t d24 Prednisone [Deltasone] 60 mg PO DAILY #12 tablet Home Medications: Albuterol Sulfate [Proair HFA Inhalation Aerosol 8.5 gm MDI] 2 puff IH Q6HP PRN 01/14/19 Azithromycin [Zithromax 250 mg Tablet] 250 mg PO DAILY #4 tablet 01/14/19 Benzonatate [Tessalon Perle 100 mg Capsule] 100 mg PO Q8HP PRN #12 cap 01/14/19 Fluticasone Propionate [Flonase Nasal [place] 50 Mcg/[place] 16 gm] 2 spray NASL Q12 #1 spray.pump 01/14/19 Guaifenesin [Mucinex] 600 mg PO BID #14 tablet.sa 01/14/19 Losartan/Hydrochlorothiazide [Losartan-Hctz 50-12.5 mg Tab] 1 tab PO DAILY 01/14/19 Meloxicam [Mobic] 7.5 mg PO DAILY 01/14/19 Nicotine [Nicoderm 14 mg/24 Hr Transdermal Patch] 1 patch TD DAILY #30 patch.td24 01/14/19 Omeprazole 40 mg PO BIDACBS 01/14/19 Ondansetron [Zofran Odt 4 mg Tablet] 4 mg PO Q4HP PRN 01/14/19 Oxycodone HCl/Acetaminophen [Percocet 10-325 mg Tablet] 1 tab PO Q8HP PRN 01/14/19 Oxycodone Myristate [Xtampza ER] 13.5 mg PO Q12 01/14/19 Pramipexole Di-HCl [Pramipexole Dihydrochloride] 1.5 mg PO TID 01/14/19 Prednisone [Deltasone] 60 mg PO DAILY #12 tablet 01/14/19 Pregabalin [Lyrica] 225 mg PO Q12 01/14/19 Topiramate [Topamax 100 mg Tablet] 100 mg PO DAILY 01/14/19 Topiramate [Topamax] 50 mg PO Q12 01/14/19 Venlafaxine HCl ER [Effexor Xr 75 mg Cap.sr] 75 mg PO QAM cap.sr.24h 01/14/19 History of Present Illness History of Present Illness: Per H&P by Dr. Pham: DERECK PHELPS is a 58 year old female with a past medical history of COPD, morbid obesity, tobacco, restless legs, fibromyalgia, osteoarthritis, opiate dependent chronic pain, deconditioning able to ambulate 15 feet with assistance and obstructive sleep apnea with BiPAP noncompliance. She presents with 4 days of shortness of breath, productive cough, fever and chills prompting a call to EMS who find her with a temperature of 100.9 and hy poxia of 86% on room air. She is brought to the emergency room requiring oxygen, albuterol and Atrovent, with use of accessory muscles and retractions yet refusing BiPAP. Physical Exam Vital Signs: Temp Pulse Resp BP Pulse Ox 97.9 F 94 18 145/61 H 92 01/14/19 13:11 01/14/19 13:11 01/14/19 13:11 01/14/19 13:11 01/14/19 13:11 Intake & Output 01/15/19 01/16/19 01/17/19 06:59 06:59 06:59 Intake Total 300 Balance 300 General appearance: PRESENT: no acute distress, morbidly obese, well-developed, well-nourished Head exam: PRESENT: atraumatic, normocephalic Eye exam: PRESENT: conjunctiva pink, EOMI, PERRLA. ABSENT: scleral icterus Mouth exam: PRESENT: moist, tongue midline Neck exam: ABSENT: carotid bruit, JVD, lymphadenopathy, thyromegaly Respiratory exam: PRESENT: clear to auscultation jimmy, rhonchi, symmetrical, unlabored. ABSENT: rales, wheezes Cardiovascular exam: PRESENT: RRR. ABSENT: diastolic murmur, rubs, systolic murmur Pulses: PRESENT: normal dorsalis pedis pul Vascular exam: PRESENT: normal capillary refill GI/Abdominal exam: PRESENT: normal bowel sounds, soft. ABSENT: distended, guarding, mass, organolmegaly, rebound, tenderness Rectal exam: PRESENT: deferred Extremities exam: PRESENT: full ROM. ABSENT: calf tenderness, clubbing, pedal edema Neurological exam: PRESENT: alert, awake, oriented to person, oriented to place, oriented to time, oriented to situation, CN II-XII grossly intact. ABSENT: motor sensory deficit Psychiatric exam: PRESENT: unusual affect. ABSENT: homicidal ideation, normal mood - labile, suicidal ideation Skin exam: PRESENT: dry, intact, warm. ABSENT: cyanosis, rash Results Laboratory Results: 01/13/19 20:10 01/13/19 20:10 01/13/19 20:10 NT-Pro-B Natriuret Pep 224 Impressions: Chest X-Ray 01/13/19 18:53 IMPRESSION: NO ACUTE RADIOGRAPHIC FINDING IN THE CHEST. Qualifiers - * PATIENT BEING DISCHARGED WITH ANY OF THE FOLLOWING DIAGNOSIS: No Plan Discharge Plan: Follow up with primary care provider within 1 week. Recommend review, and reduction, of pain and anxiety medications to reduce sedation/respiratory depression in patient with COPD, morbid obesity, and RADHA who is CPAP noncompliant. STOP smoking. Return to the emergency room as needed for concerning symptoms. Time Spent: Less than 30 Minutes
== END 2019-01-14 13:10 | disposition home or self-care (01) ==
LOC: ER 18:31 → EH 01-14 01:56 → 4S 01-14 05:18
PROVIDERS: ADMIT Internal Medicine; ATTEND Internal Medicine
DX: J44.0 Chronic obstructive pulmonary disease with (acute) lower respiratory infection (principal); J20.9 Acute bronchitis, unspecified; J44.1 Chronic obstructive pulmonary disease with (acute) exacerbation; E66.01 Morbid (severe) obesity due to excess calories; G47.33 Obstructive sleep apnea (adult) (pediatric); F17.210 Nicotine dependence, cigarettes, uncomplicated; G89.29 Other chronic pain; M54.9 Dorsalgia, unspecified; R00.0 Tachycardia, unspecified; R09.02 Hypoxemia; D72.819 Decreased white blood cell count, unspecified; E87.6 Hypokalemia; F40.240 Claustrophobia; M19.90 Unspecified osteoarthritis, unspecified site; M79.7 Fibromyalgia; F11.20 Opioid dependence, uncomplicated; I10 Essential (primary) hypertension; Z82.49 Family history of ischemic heart disease and other diseases of the circulatory system; Z90.49 Acquired absence of other specified parts of digestive tract; Z79.899 Other long term (current) drug therapy; Z91.14 Patient's other noncompliance with medication regimen; Z53.29 Procedure and treatment not carried out because of patient's decision for other reasons
CPT/HCPCS: 94640 ×3; 99284; 96375; 96365; 96366; 36415 ×2; 87040; 87070; 87205; 84443; 85025; 80053; 82803; 87804; 83880; 71046; 94799; 94667; G0378 ×2; A9270 ×7; J1644; J3490 ×4; J2930; J2270; J3475; J2405; J7060; J0456; J0696; J7620

== ENCOUNTER 2019-01-14 22:43 | Emergency (ER) | payer MEDICARE, MEDICAID ==
[2019-01-14 23:07] VITALS: BP 157/96
[2019-01-15] MEDS ORDERED: NORMAL SALINE 1000 ML 1,000 ML IV ONE (01:58)
[2019-01-15] MEDS ORDERED: DICYCLOMINE HCL INJ 20 MG/2 ML AMPULE IM ONE (01:58)
[2019-01-15] MEDS ORDERED: HALOPERIDOL LACTATE INJ 5 MG/1 ML VIAL IV ONE (01:58)
--- NOTE | 2019-01-15 02:02 | ER Document Report ---
ED General - General Chief Complaint: Vomiting Stated Complaint: VOMITING Time Seen by Provider: 01/15/19 01:30 Primary Care Provider: MATT MATHIAS DO [Primary Care Provider] - Follow up as needed Notes: Patient is a 58-year-old female with past medical history of morbid obesity, COPD, fibromyalgia, presents after being discharged less than 24 hours ago for a COPD exacerbation with nausea, vomiting and diarrhea. She states the symptoms started several hours after getting home. She states that the symptoms started abruptly and have been constant since that time. She describes it as being severe. She states that she has been unable to keep anything down since the onset of the vomiting and that each time she vomits she has a bowel movement. She notes a cramping, generalized, mild to moderate diffuse abdominal discomfort worsened by episodes of vomiting. Denies a history of similar symptoms in the past. She has a remote history of a cholecystectomy. She denies ongoing difficulty breathing or fever. She has not seen her primary doctor regarding today's concerns. TRAVEL OUTSIDE OF THE [place] IN LAST 30 DAYS: No - Related Data Allergies/Adverse Reactions: clindamycin Allergy (Verified 01/14/19 06:56) sulfamethoxazole [From Bactrim] Allergy (Verified 01/14/19 06:56) trimethoprim [From Bactrim] Allergy (Verified 01/14/19 06:56) vancomycin Allergy (Verified 01/14/19 06:56) Past Medical History - General Information source: Patient - Social History Smoking Status: Former Smoker Frequency of alcohol use: None Drug Abuse: None Lives with: Alone Family History: Hypertension, Malignancy, Other - [place] Patient has suicidal ideation: No Patient has homicidal ideation: No - Past Medical History Cardiac Medical History: Reports: Hx Congestive Heart Failure, Hx Hypertension Denies: Hx Coronary Artery Disease, Hx Heart Attack Pulmonary Medical History: Reports: Hx Bronchitis, Hx COPD - no home oxygen, Hx Pneumonia Denies: Hx Asthma, Hx Tuberculosis Neurological Medical History: Denies: Hx Cerebrovascular Accident, Hx Seizures Renal/ Medical History: Denies: Hx Peritoneal Dialysis Musculoskeletal Medical History: Reports Hx Arthritis Psychiatric Medical History: Reports: Hx Depression Past Surgical History: Reports: Hx Cholecystectomy, Hx Hysterectomy, Hx Orthopedic Surgery - Bilateral feet screws. Denies: Hx Pacemaker - Immunizations Hx Diphtheria, Pertussis, Tetanus Vaccination: No Hx Pneumococcal Vaccination: 10/01/11 Review of Systems - Review of Systems Notes: Constitutional: Negative for fever. HENT: Negative for sore throat. Eyes: Negative for visual changes. Cardiovascular: Negative for chest pain. Respiratory: Negative for shortness of breath. Gastrointestinal: Positive for abdominal pain, nausea, vomiting and diarrhea Genitourinary: Negative for dysuria. Musculoskeletal: Negative for back pain. Skin: Negative for rash. Neurological: Negative for headaches, weakness or numbness. 10 point ROS negative except as marked above and in HPI. Physical Exam - Vital signs Vitals: Temp Pulse Resp BP Pulse Ox 98.3 F 76 25 H 157/96 H 95 01/14/19 23:01 01/14/19 23:01 01/14/19 23:01 01/14/19 23:01 01/14/19 23:01 Interpretation: Hypertensive, Tachypneic Notes: PHYSICAL EXAMINATION: GENERAL: Appears moderately uncomfortable, rolling around and appears to be having difficulty sitting still. HEAD: Atraumatic, normocephalic. EYES: Pupils equal round and reactive to light, extraocular movements intact, sclera anicteric, conjunctiva are normal. ENT: nares patent, oropharynx clear without exudates. Dry mucous membranes. NECK: Normal range of motion, supple without lymphadenopathy LUNGS: Breath sounds clear to auscultation bilaterally and equal. No wheezes rales or rhonchi. HEART: Regular rate and rhythm without murmurs ABDOMEN: Soft, obese abdomen, nontender, normoactive bowel sounds. No guarding, no rebound. No masses appreciated. EXTREMITIES: Normal range of motion, no pitting or edema. No cyanosis. NEUROLOGICAL: No focal neurological deficits. Moves all extremities spontaneously and on command. PSYCH: Highly anxious SKIN: Warm, Dry, normal turgor, no rashes or lesions noted. Course - Re-evaluation Re-evalutation: 01/15/19 02:01 Presentation of an overall well-appearing patient in no acute distress with complaints of nausea, vomiting, diarrhea. Patient has no abdominal tenderness on exam and specifically no tenderness in the RLQ, LLQ, RUQ. Overall well hydrated on exam. Able to tolerate oral intake here in the emergency department after administration of haloperidol as she had received ondansetron and repeated doses as an outpatient prior to arrival by EMS without any relief. Low clinical suspicion for any acute life-threatening etiology based on exam and history i ncluding SBO, appendicitis, nephrolithiasis, or pylonephritis. CMP without evidence of acute hepatitis or significant dehydration. Two-view abdomen unremarkable. At this time will discharge with return precautions and follow-up recommendations. Verbal discharge instructions given a the bedside and opportunity for questions given. Medication warnings reviewed. Patient is in agreement with this plan and has verbalized understanding of return precautions and the need for primary care follow-up in the next 24-72 hours. - Vital Signs Vital signs: Temp Pulse Resp BP Pulse Ox 98.3 F 76 25 H 157/96 H 95 01/14/19 23:01 01/14/19 23:01 01/14/19 23:01 01/14/19 23:01 01/14/19 23:01 - Laboratory Result Diagrams: 01/15/19 01:47 01/15/19 02:33 Laboratory results interpreted by me: 01/15/19 01/15/19 01:47 02:33 RDW 16.0 H Seg Neutrophils % 89.8 H Lymphocytes % 8.0 L Monocytes % 2.0 L Absolute Lymphocytes 0.4 L Glucose 134 H Direct Bilirubin 0.5 H AST 67 H ALT 57 H Alkaline Phosphatase 147 H Discharge - Discharge Clinical Impression: Morbid obesity, Nausea vomiting and diarrhea, Abdominal cramping Condition: Good Disposition: HOME, SELF-CARE Additional Instructions: Your lab work and x-rays are reassuring today. You can take [id number] loperamide also known as Imodium as needed for diarrhea per box instructions. Continue to stay hydrated with plenty of solution such as Gatorade or Pedialyte. You are being prescribed Zofran to take as needed for nausea and vomiting. Please return if you develop severe abdominal pain, pass out, become unable to tolerate any oral fluids for 12 more hours, or any other symptoms that are concerning to you. Referrals: MATT MATHIAS DO [Primary Care Provider] - Follow up tomorrow
[2019-01-15 02:04] LABS: ABSOLUTE LYMPHOCYTES (AUTO) 0.4 10^3/uL (0.5-4.7); ABSOLUTE MONOCYTES (AUTO) 0.1 10^3/uL (0.1-1.4); ABSOLUTE NEUT (AUTO) 4.5 10^3/uL (1.7-8.2); BASOPHILS % (AUTO) 0.2 % (0-2); HEMOGLOBIN 12.1 g/dL (12.0-15.5); MEAN CORPUSCULAR HGB CONC 32.8 g/dL (32.0-36.0); MEAN CORPUSCULAR VOLUME 82 fl (80-97); PLATELET COUNT 169 10^3/uL (150-450); SEGMENTED NEUTROPHILS % (AUTO) 89.8 % (42-78); TOTAL CELLS COUNTED % (AUTO) 100 %
--- NOTE | 2019-01-15 02:48 | RADIOLOGY REPORT (SQ) ---
CLINICAL HISTORY: ab pain, vomiting COMPARISON: None. TECHNIQUE: XR ABDOMEN 2 VIEWS SUPINE ERECT 01/15/2019 1:58 AM CDT FINDINGS: Bowel gas pattern is nonspecific. There are no abnormal radiopaque foreign bodies or abnormal calcifications. Osseous structures are grossly unremarkable. Cholecystectomy was performed. IMPRESSION: No bowel obstruction.
[2019-01-15 02:52] LABS: ALANINE AMINOTRANSFERASE 57 U/L (9-52); ALBUMIN 3.8 g/dL (3.5-5.0); ALKALINE PHOSPHATASE 147 U/L (38-126); ANION GAP 8 (5-19); ASPARTATE AMINO TRANSFERASE 67 U/L (14-36); BILIRUBIN,DIRECT 0.5 mg/dL (0.0-0.4); BILIRUBIN,TOTAL 0.5 mg/dL (0.2-1.3); BLOOD UREA NITROGEN 15 mg/dL (7-20); CALCIUM 9.4 mg/dL (8.4-10.2); CARBON DIOXIDE 26 mmol/L (22-30); CHLORIDE 104 mmol/L (98-107); GLUCOSE 134 mg/dL (75-110); LIPASE 88.9 U/L (23-300); POTASSIUM 3.8 mmol/L (3.6-5.0); SODIUM 137.9 mmol/L (137-145); TOTAL PROTEIN 7.3 g/dL (6.3-8.2)
[2019-01-15] MEDS ORDERED: ONDANSETRON ODT 4 MG TAB (6 TAB/ER DISP) PO PRN (03:08)
== END 2019-01-15 03:18 | disposition home or self-care (01) ==
LOC: ER 22:43
DX: R11.2 Nausea with vomiting, unspecified (principal); R19.7 Diarrhea, unspecified; R10.9 Unspecified abdominal pain; J44.9 Chronic obstructive pulmonary disease, unspecified; R06.82 Tachypnea, not elsewhere classified; E66.01 Morbid (severe) obesity due to excess calories; I10 Essential (primary) hypertension; Z90.710 Acquired absence of both cervix and uterus; Z90.49 Acquired absence of other specified parts of digestive tract; Z88.1 Allergy status to other antibiotic agents; Z87.891 Personal history of nicotine dependence
CPT/HCPCS: 99284; 96372; 96361; 96374; 36415; 83690; 85025; 80053; 74019; J0500; J1630; J7030; A9270

== ENCOUNTER 2019-02-03 22:12 | Emergency (ER) | payer MEDICARE, MEDICAID ==
[2019-02-03] MEDS ORDERED: ONDANSETRON HCL INJ/PF 4 MG/2 ML SDV IV ONE (22:59)
[2019-02-03] MEDS ORDERED: FENTANYL CITRATE INJ/PF 100 MCG/2 ML AMPUL IV ONE (22:59)
[2019-02-03] MEDS ORDERED: DOXYCYCLINE HYCLATE INJ 100 MG VIAL IV ONE (22:59)
--- NOTE | 2019-02-03 23:00 | ER Document Report ---
ED General - General Chief Complaint: Leg Pain Stated Complaint: BILATERAL LEG DISCOMFORT Time Seen by Provider: 02/03/19 22:46 Primary Care Provider: MATT MATHIAS DO [Primary Care Provider] - Follow up in 3-5 days Notes: Patient is a 58-year-old female with history of venous stasis that presents to the emergency department for chief complaint of redness and pain in her legs. Patient states for the past few days she has been having redness on both of her legs, and they felt hot and burning at times, and they get cold. She does have a history of restless leg syndrome as well. She was started on Keflex was c alled in by her primary care, she is only had 3 doses today. She denies any fevers, chills, night sweats, chest pain, shortness of breath, difficulty breathing, nausea or vomiting. She currently rates her pain as a 6 out of 10 describes as a burning pain in her legs bilaterally mainly at the levels of the shins. She denies noting any streaking up her legs. She states she has had cellulitis in the past but it was much worse than this time. Past Medical History: Hypertension, degenerative disc disease, restless leg syndrome, fibromyalgia Past Surgical History: Hysterectomy, venous stripping surgeries Social History: Admits to smoking cigarettes, denies alcohol or drug use. Family History: Reviewed and noncontributory for presenting illness Allergies: Reviewed, see documented allergy list. REVIEW OF SYSTEMS: Other than noted above, the 12 point review of systems was reviewed with the patient and were negative, all pertinent findings are included in the HPI. PHYSICAL EXAMINATION: Vital signs reviewed, nursing noted reviewed. GENERAL: Obese female, no acute distress HEAD: Atraumatic, normocephalic. EYES: Eyes appear normal, extraocular movements intact, sclera anicteric, co njunctiva are normal. ENT: nares patent, oropharynx clear without exudates. Moist mucous membranes. NECK: Normal range of motion, supple without lymphadenopathy LUNGS: Breath sounds clear to auscultation bilaterally and equal. No wheezes rales or rhonchi. HEART: Regular rate and rhythm without murmurs ABDOMEN: Soft, nontender, normoactive bowel sounds. No rebound, guarding, or rigidity. No masses appreciated. EXTREMITIES: Mild tenderness to palpation to the bilateral lower extremities, there is good range of motion, there is very minimal erythema noted to the patient's lower legs bilaterally, with stasis dermatitis noted, and 1+ edema noted. There is no lymphangitis appreciated. No inguinal lymphadenopathy. NEUROLOGICAL: No focal neurological deficits. Moves all extremities spo ntaneously Motor and sensory grossly intact on exam. PSYCH: Normal mood, normal affect. SKIN: Warm, Dry, normal turgor, no rashes or lesions noted on exposed skin TRAVEL OUTSIDE OF THE [place] IN LAST 30 DAYS: No - Related Data Allergies/Adverse Reactions: clindamycin Allergy (Verified 02/03/19 22:23) sulfamethoxazole [From Bactrim] Allergy (Verified 02/03/19 22:23) trimethoprim [From Bactrim] Allergy (Verified 02/03/19 22:23) vancomycin Allergy (Verified 02/03/19 22:23) Past Medical History - Social History Smoking Status: Current Every Day Smoker Frequency of alcohol use: None Drug Abuse: None Family History: Hypertension, Malignancy, Other - [place] Patient has suicidal ideation: No Patient has homicidal ideation: No - Past Medical History Cardiac Medical History: Reports: Hx Congestive Heart Failure, Hx Hypertension Denies: Hx Coronary Artery Disease, Hx Heart Attack Pulmonary Medical History: Reports: Hx Bronchitis, Hx COPD - no home oxygen, Hx Pneumonia Denies: Hx Asthma, Hx Tuberculosis Neurological Medical History: Denies: Hx Cerebrovascular Accident, Hx Seizures Renal/ Medical History: Denies: Hx Peritoneal Dialysis Musculoskeletal Medical History: Reports Hx Arthritis Psychiatric Medical History: Reports: Hx Depression Past Surgical History: Reports: Hx Cholecystectomy, Hx Hysterectomy, Hx Orthopedic Surgery - Bilateral feet screws. Denies: Hx Pacemaker - Immunizations Hx Diphtheria, Pertussis, Tetanus Vaccination: No Hx Pneumococcal Vaccination: 07/17/11 Physical Exam - Vital signs Vitals: Temp Pulse Resp BP Pulse Ox 98.1 F 98 20 153/71 H 95 02/03/19 22:18 02/03/19 22:18 02/03/19 22:18 02/03/19 22:18 02/03/19 22:18 Course - Re-evaluation Re-evalutation: Patient seen and examined vital signs reviewed. Laboratory data and/or imaging were ordered as appropriate for the patient's presenting symptoms and complaint, with consideration of any critical or life threatening conditions that may be associated with their obtained history and exam as noted above. Patient was treated with IV fentanyl for her pain, as well as Zofran for nausea that may be induced by the fentanyl, she is also given a dose of IV doxycycline while labs are pending. Results were reviewed when available and demonstrated no leukocytosis, chemistries essentially unremarkable, very mild hyponatremia The patient was re-evaluated and was stable Evaluation was most consistent with mild cellulitis of the lower extremities bilaterally, her exam is consistent with long-standing stasis dermatitis as lela foreman, will advised her to discontinue Keflex, and only take the doxycycline twice daily for 7 days and have her follow-up with her primary care. Results were discussed with the patient at this point, after careful consideration I feel that that patient can be discharged from the emergency department, the patient was educated treatments and reasons to return to the emergency department based on their presumed diagnosis as noted above, they were advised to followup with a primary care physician in 2-3 days. Patient was agreeable to plan of care. *Note is created using voice recognition software and may contain spelling, syntax or grammatical errors. Laboratory 02/03/19 02/03/19 23:31 23:31 WBC 5.2 RBC 4.09 Hgb 11.0 L Hct 33.3 L MCV 81 MCH 27.0 MCHC 33.2 RDW 16.4 H Plt Count 239 Seg Neutrophils % 66.3 Lymphocytes % 24.5 Monocytes % 6.3 Eosinophils % 2.4 Basophils % 0.5 Absolute Neutrophils 3.4 Absolute Lymphocytes 1.3 Absolute Monocytes 0.3 Absolute Eosinophils 0.1 Absolute Basophils 0.0 Sodium 135.9 L Potassium 3.5 L Chloride 99 Carbon Dioxide 31 H Anion Gap 6 BUN 12 Creatinine 0.92 Est GFR ( Amer) > 60 Est GFR (Non-Af Amer) > 60 Glucose 109 Calcium 9.4 - Vital Signs Vital signs: Temp Pulse Resp BP Pulse Ox 98.1 F 98 20 153/71 H 95 02/03/19 22:18 02/03/19 22:18 02/03/19 22:18 02/03/19 22:18 02/03/19 22:18 - Laboratory Result Diagrams: 02/03/19 23:31 02/03/19 23:31 Laboratory results interpreted by me: 02/03/19 02/03/19 23:31 23:31 Hgb 11.0 L Hct 33.3 L RDW 16.4 H Sodium 135.9 L Potassium 3.5 L Carbon Dioxide 31 H Discharge - Discharge Clinical Impression: Cellulitis Qualifiers: Site of cellulitis: extremity Site of cellulitis of extremity: lower extremity Laterality: unspecified laterality Qualified Code(s): L03.119 - Cellulitis of unspecified part of limb Condition: Stable Disposition: HOME, SELF-CARE Instructions: Cellulitis ([facility]) Additional Instructions: Please return to the emergency department if you have any worsening, or concern of your symptoms. Please return to the emergency department if you develop chest pain, difficulty breathing, severe abdominal pain, or ongoing vomiting. Please follow-up with your primary care physician in 2-3 days and any other recommended physicians. If prescribed, take all medications as directed. If you have any questions or concerns do not hesitate to return the emergency department for evaluation. Please discontinue the previously prescribed Keflex, and fill the prescription for the new antibiotic doxycycline 100 mg twice daily for 7 days complete the entire course of antibiotics as prescribed. Prescriptions: Doxycycline Hyclate 100 mg PO BID #14 capsule Referrals: MATT MATHIAS DO [Primary Care Provider] - Follow up in 3-5 days
[2019-02-03 23:41] LABS: ABSOLUTE EOSINOPHILS # (AUTO) 0.1 10^3/uL (0.0-0.6); ABSOLUTE LYMPHOCYTES (AUTO) 1.3 10^3/uL (0.5-4.7); ABSOLUTE MONOCYTES (AUTO) 0.3 10^3/uL (0.1-1.4); ABSOLUTE NEUT (AUTO) 3.4 10^3/uL (1.7-8.2); BASOPHILS % (AUTO) 0.5 % (0-2); EOSINOPHILS % (AUTO) 2.4 % (0-6); HEMATOCRIT 33.3 % (36.0-47.0); LYMPHOCYTES % (AUTO) 24.5 % (13-45); MEAN CORPUSCULAR HGB CONC 33.2 g/dL (32.0-36.0); MEAN CORPUSCULAR VOLUME 81 fl (80-97); MONOCYTES % (AUTO) 6.3 % (3-13); PLATELET COUNT 239 10^3/uL (150-450); RED BLOOD COUNT 4.09 10^6/uL (3.72-5.28); RED CELL DISTRIBUTION WIDTH 16.4 % (11.5-14.0); SEGMENTED NEUTROPHILS % (AUTO) 66.3 % (42-78); TOTAL CELLS COUNTED % (AUTO) 100 %; WHITE BLOOD COUNT 5.2 10^3/uL (4.0-10.5)
[2019-02-04 00:05] LABS: ANION GAP 6 (5-19); BLOOD UREA NITROGEN 12 mg/dL (7-20); CALCIUM 9.4 mg/dL (8.4-10.2); CARBON DIOXIDE 31 mmol/L (22-30); CHLORIDE 99 mmol/L (98-107); GLUCOSE 109 mg/dL (75-110); POTASSIUM 3.5 mmol/L (3.6-5.0); SODIUM 135.9 mmol/L (137-145)
[2019-02-04 01:30] VITALS: BP 120/70
== END 2019-02-04 01:00 | disposition home or self-care (01) ==
LOC: ER 22:12
DX: L03.119 Cellulitis of unspecified part of limb (principal); M79.662 Pain in left lower leg; M79.661 Pain in right lower leg; I87.2 Venous insufficiency (chronic) (peripheral); R60.0 Localized edema; E87.6 Hypokalemia; I10 Essential (primary) hypertension; F17.210 Nicotine dependence, cigarettes, uncomplicated; Z88.1 Allergy status to other antibiotic agents; J44.9 Chronic obstructive pulmonary disease, unspecified
CPT/HCPCS: 99283; 96374; 96375; 36415; 85025; 80048; J3490; J3010; J2405

== ENCOUNTER 2019-02-13 21:40 | Emergency (ER) | payer MEDICARE, MEDICAID ==
[2019-02-14] MEDS ORDERED: IBUPROFEN 600 MG TABLET PO ONE (00:49)
[2019-02-14] MEDS ORDERED: HYDROCODONE/ACETAMINOPHEN 10-325 MG TABLET PO ONE (00:49)
--- NOTE | 2019-02-14 00:54 | ER Document Report ---
ED General - General Chief Complaint: Foot Pain Stated Complaint: LEFT FOOT PAIN Time Seen by Provider: 02/14/19 00:40 Primary Care Provider: ARUN SCHMITT DPM [ACTIVE STAFF] - Follow up tomorrow GERMANIA VALLEJO MD [ACTIVE STAFF] - Follow up tomorrow MATT MATHIAS DO [Primary Care Provider] - Follow up in 3-5 days Notes: Patient is a 58-year-old female who presents emergency department with a chief complaint of left foot pain. She was seen here in the emergency department in the morning and was diagnosed with a 5th toe fracture with an open laceration. States that it is very painful. She was started on Keflex and instructed to continue her current pain medication of oxycodone 7.5. She did have some ibuprofen earlier today, but states that she has increased swelling and pain. She has been walking on her foot, but does not have an Julien wrap or a postop boot. She has not seen orthopedics or podiatry. TRAVEL OUTSIDE OF THE [place] IN LAST 30 DAYS: No - Related Data Allergies/Adverse Reactions: clindamycin Allergy (Verified 02/03/19 22:23) sulfamethoxazole [From Bactrim] Allergy (Verified 02/03/19 22:23) trimethoprim [From Bactrim] Allergy (Verified 02/03/19 22:23) vancomycin Allergy (Verified 02/03/19 22:23) Past Medical History - Social History Smoking Status: Unknown if Ever Smoked Family History: Hypertension, Malignancy, Other - [place] - Past Medical History Cardiac Medical History: Reports: Hx Congestive Heart Failure, Hx Hypertension Denies: Hx Coronary Artery Disease, Hx Heart Attack Pulmonary Medical History: Reports: Hx Bronchitis, Hx COPD - no home oxygen, Hx Pneumonia Denies: Hx Asthma, Hx Tuberculosis Neurological Medical History: Denies: Hx Cerebrovascular Accident, Hx Seizures Renal/ Medical History: Denies: Hx Peritoneal Dialysis Musculoskeletal Medical History: Reports Hx Arthritis Psychiatric Medical History: Reports: Hx Depression Past Surgical History: Reports: Hx Cholecystectomy, Hx Hysterectomy, Hx Orthopedic Surgery - Bilateral feet screws. Denies: Hx Pacemaker - Immunizations Hx Diphtheria, Pertussis, Tetanus Vaccination: No Hx Pneumococcal Vaccination: 07/17/11 Review of Systems - Review of Systems Notes: REVIEW OF SYSTEMS: CONSTITUTIONAL : Denies recent illness. Denies recent unintentional weight loss. Denies fever, chills, or sweats. EENT: Denies eye, ear, throat, or mouth pain, discharge, or symptoms. Denies nasal or sinus congestion. CARDIOVASCULAR: Denies chest pain. RESPIRATORY: Denies shortness of breath, cough, congestion, difficulty breathing, or wheezing. GASTROINTESTINAL: Denies nausea, vomiting, and diarrhea. Denies abdominal pain. Denies constipation. GENITOURINARY: Denies difficulty urinating, burning, blood in urine, urgency or frequency. MUSCULOSKELETAL: Denies neck and back pain. Denies joint pain or swelling. SKIN: Denies rash, itchiness, or lesions HEMATOLOGIC : Denies easy bruising or bleeding. LYMPHATIC: Denies swollen, painful, enlarged glands. NEUROLOGICAL: Denies no numbness or tingling denies weakness. Denies headache. Denies altered mental status. Denies alteration in speech. PSYCHIATRIC: Denies stress, anxiety, alteration in sleep patterns, or depression. MSK: See HPI All other systems reviewed and negative. Physical Exam - Vital signs Vitals: Temp Pulse Resp BP Pulse Ox 98.2 F 93 18 125/69 97 02/13/19 21:53 02/13/19 21:53 02/13/19 21:53 02/13/19 21:53 02/13/19 21:53 - Notes Notes: PHYSICAL EXAMINATION: GENERAL: Appears well, healthy, well-nourished, no acute distress. HEAD: Normocephalic, atraumatic. EYES: PERRL, conjunctiva normal, all extraocular movements intact, sclera nonicteric ENT: Moist mucous membranes. NECK: Supple, no noticeable swelling, redness, rash. Normal range of motion. LUNGS: Equal breath sounds bilaterally and clear to auscultation. No wheezes rales or rhonchi. CARDIOVASCULAR: S1-S2, regular rate, regular rhythm. Radial pulses 2+, normal. ABDOMEN: Normoactive bowel sounds. Soft, nontender, no guarding, no rebound tenderness, and no masses palpated. EXTREMITIES: Normal strength and range of motion, no pitting or edema. No cyanosis. NEUROLOGICAL: Moves all extremities upon command. Strength 5/5 in all extremities. PSYCH: Normal mood, normal affect. SKIN: Warm, dry. No rash, lesions, ulcerations noted. Normal skin turgor. Stitches in place to plantar portion of foot from earlier today. Healing well. Course - Re-evaluation Re-evalutation: 02/14/19 01:10 Patient's laceration site appears normal. I suspect the patient is having her pain due to her walking on it. She will receive a dose of [place] and ibuprofen here in the emergency department. She will also be provided a postop shoe and an Julien wrap. I have instructed her that she needs follow-up with orthopedics or podiatry. She is in agreement with this plan. Verbal discharge instructions were given to the patient. They verbalized understanding. They are stable for discharge. - Vital Signs Vital signs: Temp Pulse Resp BP Pulse Ox 98.1 F 98 16 122/68 97 02/14/19 01:53 02/14/19 01:53 02/14/19 01:53 02/14/19 01:53 02/14/19 01:53 Discharge - Discharge Clinical Impression: Left foot pain Condition: Stable Disposition: HOME, SELF-CARE Additional Instructions: You were seen today in the emergency department for left foot pain. Your foot is healing well. You have been provided an Julien wrap and a postop boot to help protect your foot. Please do not walk on her foot as much as possible. Please continue to follow-up with orthopedics or podiatry. Please continue the antibiotics. Please add 600 mg of ibuprofen every 6 hours to your pain medication regimen. If you need more pain medication, please follow-up with your primary care doctor. Referrals: MATT MATHIAS DO [Primary Care Provider] - Follow up in 3-5 days ARUN SCHMITT DPM [ACTIVE STAFF] - Follow up tomorrow GERMANIA VALLEJO MD [ACTIVE STAFF] - Follow up tomorrow
[2019-02-14 01:54] VITALS: BP 122/68
== END 2019-02-14 01:53 | disposition home or self-care (01) ==
LOC: ER 21:40
DX: S92.502B Displaced unspecified fracture of left lesser toe(s), initial encounter for open fracture (principal); M79.672 Pain in left foot; X58.XXXA Exposure to other specified factors, initial encounter; Z79.891 Long term (current) use of opiate analgesic; I10 Essential (primary) hypertension; J44.9 Chronic obstructive pulmonary disease, unspecified; Z88.1 Allergy status to other antibiotic agents
CPT/HCPCS: 99283; A9270 ×2

== ENCOUNTER 2019-03-09 20:55 | Emergency (ER) | payer MEDICARE, MEDICAID ==
[2019-03-09] MEDS ORDERED: NORMAL SALINE 1000 ML 1,000 ML IV ONE (23:45)
[2019-03-09] MEDS ORDERED: METOCLOPRAMIDE HCL INJ/PF 10 MG/2 ML SDV IV ONE (23:45)
[2019-03-09] MEDS ORDERED: MORPHINE SULFATE 10 MG/ML INJ IV ONE (23:46)
--- NOTE | 2019-03-09 23:48 | ER Document Report ---
ED Medical Screen (RME) - General Chief Complaint: abd Stated Complaint: ABDOMINAL PAIN Time Seen by Provider: 03/09/19 23:44 Primary Care Provider: MATT MATHIAS DO [Primary Care Provider] - Follow up as needed Notes: 58-year-old female, chief complaint of vomiting and upper abdominal pain for the past 2-1/2 days. States that she has not been able to take her home medications because of this. She denies fever, flank pain, chest pain. She denies hematemesis or hematochezia, reports a normal bowel movement earlier today. Past medical history includes pancreatitis, cholecystectomy, total hysterectomy. Denies alcohol. She is on chronic pain medication but has not been able to take this. TRAVEL OUTSIDE OF THE [place] IN LAST 30 DAYS: No - Related Data Allergies/Adverse Reactions: clindamycin Allergy (Verified 02/03/19 22:23) sulfamethoxazole [From Bactrim] Allergy (Verified 02/03/19 22:23) trimethoprim [From Bactrim] Allergy (Verified 02/03/19 22:23) vancomycin Allergy (Verified 02/03/19 22:23) Past Medical History - Past Medical History Cardiac Medical History: Reports: Hx Congestive Heart Failure, Hx Hypertension Denies: Hx Coronary Artery Disease, Hx Heart Attack Pulmonary Medical History: Reports: Hx Bronchitis, Hx COPD - no home oxygen, Hx Pneumonia Denies: Hx Asthma, Hx Tuberculosis Neurological Medical History: Denies: Hx Cerebrovascular Accident, Hx Seizures Renal/ Medical History: Denies: Hx Peritoneal Dialysis Musculoskeltal Medical History: Reports Hx Arthritis Psychiatric Medical History: Reports: Hx Depression Past Surgical History: Reports: Hx Cholecystectomy, Hx Hysterectomy, Hx Orthopedic Surgery - Bilateral feet screws. Denies: Hx Pacemaker - Immunizations Hx Diphtheria, Pertussis, Tetanus Vaccination: No History of Influenza Vaccine for 07/2017 - 12/2017 Season: Unknown Physical Exam - Vital signs Vitals: Temp Pulse Resp BP Pulse Ox 98.2 F 77 22 H 135/60 H 100 03/09/19 21:17 03/09/19 21:17 03/09/19 21:17 03/09/19 21:17 03/09/19 21:17 - Abdominal Tenderness: Tender - Upper abdominal tenderness generally, lower abdomen seems benign except for some left lower quadrant tenderness Course - Re-evaluation Re-evalutation: Patient persistently vomiting in triage. Vital signs are unremarkable however. Ordering medications, work-up pending I have greeted and performed a rapid initial assessment of this patient. A comprehensive ED assessment and evaluation of the patient, analysis of test results and completion of the medical decision making process will be conducted by additional ED providers. - Vital Signs Vital signs: Temp Pulse Resp BP Pulse Ox 98.2 F 77 22 H 135/60 H 100 03/09/19 21:17 03/09/19 21:17 03/09/19 21:17 03/09/19 21:17 03/09/19 21:17 Doctor's Discharge - Discharge Referrals: MATT MATHIAS DO [Primary Care Provider] - Follow up as needed
[2019-03-10 00:28] LABS: ABSOLUTE EOSINOPHILS # (AUTO) 0.1 10^3/uL (0.0-0.6); ABSOLUTE MONOCYTES (AUTO) 0.3 10^3/uL (0.1-1.4); ABSOLUTE NEUT (AUTO) 4.8 10^3/uL (1.7-8.2); BASOPHILS % (AUTO) 0.4 % (0-2); EOSINOPHILS % (AUTO) 0.9 % (0-6); HEMATOCRIT 38.5 % (36.0-47.0); HEMOGLOBIN 12.4 g/dL (12.0-15.5); LYMPHOCYTES % (AUTO) 16.6 % (13-45); MEAN CORPUSCULAR HEMOGLOBIN 25.8 pg (27.0-33.4); MEAN CORPUSCULAR HGB CONC 32.1 g/dL (32.0-36.0); MEAN CORPUSCULAR VOLUME 80 fl (80-97); MONOCYTES % (AUTO) 4.7 % (3-13); PLATELET COUNT 213 10^3/uL (150-450); RED BLOOD COUNT 4.79 10^6/uL (3.72-5.28); RED CELL DISTRIBUTION WIDTH 16.7 % (11.5-14.0); SEGMENTED NEUTROPHILS % (AUTO) 77.4 % (42-78); TOTAL CELLS COUNTED % (AUTO) 100 %; WHITE BLOOD COUNT 6.2 10^3/uL (4.0-10.5)
[2019-03-10 00:45] LABS: ALANINE AMINOTRANSFERASE 21 U/L (9-52); ALKALINE PHOSPHATASE 84 U/L (38-126); ANION GAP 8 (5-19); ASPARTATE AMINO TRANSFERASE 19 U/L (14-36); BILIRUBIN,DIRECT 0.3 mg/dL (0.0-0.4); BILIRUBIN,TOTAL 0.4 mg/dL (0.2-1.3); BLOOD UREA NITROGEN 13 mg/dL (7-20); CALCIUM 9.7 mg/dL (8.4-10.2); CARBON DIOXIDE 27 mmol/L (22-30); CHLORIDE 102 mmol/L (98-107); GLUCOSE 106 mg/dL (75-110); LIPASE 114.6 U/L (23-300); POTASSIUM 4.1 mmol/L (3.6-5.0); SODIUM 137.3 mmol/L (137-145); TOTAL PROTEIN 7.2 g/dL (6.3-8.2)
[2019-03-10 03:18] LABS: APPEARANCE,URINE SLIGHTLY-CLOUDY; BILIRUBIN,URINE NEGATIVE (NEGATIVE); COLOR,URINE YELLOW; GLUCOSE, URINE NEGATIVE (NEGATIVE); KETONES,URINE NEGATIVE (NEGATIVE); LEUKOCYTE ESTERASE,URINE NEGATIVE (NEGATIVE); NITRITE,URINE NEGATIVE (NEGATIVE); PROTEIN,URINE NEGATIVE (NEGATIVE); UROBILINOGEN,URINE NEGATIVE mg/dL (<2.0)
[2019-03-10] MEDS ORDERED: RINGERS SOLUTION,LACTATED 1,000 ML IV ONE (06:08)
[2019-03-10] MEDS ORDERED: ONDANSETRON HCL INJ/PF 4 MG/2 ML SDV IV ONE (06:08)
[2019-03-10] MEDS ORDERED: MORPHINE SULFATE 10 MG/ML INJ IV ONE (06:08)
[2019-03-10] MEDS ORDERED: DIPHENHYDRAMINE HCL 50 MG/ML VIAL IV ONE (06:08)
[2019-03-10] MEDS ORDERED: FAMOTIDINE INJ/PF 20 MG/2 ML SDV IV ONE (06:08)
--- NOTE | 2019-03-10 07:06 | ER Document Report ---
ED General - General Chief Complaint: Abdominal Pain Stated Complaint: ABDOMINAL PAIN Time Seen by Provider: 03/09/19 23:44 Primary Care Provider: MATT MATHIAS DO [Primary Care Provider] - Follow up as needed Mode of Arrival: Ambulatory Information source: Patient, [facility] Records Notes: 58-year-old female with congestive heart failure, hypertension, COPD, GERD presents with chief complaint of vomiting and upper abdominal pain for the past 2-1/2 days. Patient describes the pain as burning, cramping. States that she has not been able to take her home medications because of this. She denies fever, flank pain, chest pain. She denies hematemesis or hematochezia, reports a normal bowel movement earlier today. Past medical history includes pancreatitis, cholecystectomy, total hysterectomy. Denies alcohol. She is on chronic pain medication but has not been able to take this. TRAVEL OUTSIDE OF THE [place] IN LAST 30 DAYS: No - HPI Onset: Other Onset/Duration: Gradual, Persistent Quality of pain: Achy, Burning Severity: Mild Associated symptoms: Nausea, Vomiting. denies: Chest pain, Diarrhea, Fever, Shortness of breath Exacerbated by: Food Relieved by: Denies Similar symptoms previously: Yes Recently seen / treated by doctor: No - Related Data Allergies/Adverse Reactions: clindamycin Allergy (Verified 02/03/19 22:23) sulfamethoxazole [From Bactrim] Allergy (Verified 02/03/19 22:23) trimethoprim [From Bactrim] Allergy (Verified 02/03/19 22:23) vancomycin Allergy (Verified 02/03/19 22:23) Past Medical History - General Information source: Patient - Social History Smoking Status: Current Every Day Smoker Cigarette use (# per day): Yes - 6 Smoking Education Provided: Yes - Smoking cessation counseling was provided for 4 minutes at the bedside Drug Abuse: None Lives with: Spouse/Significant other Family History: Hypertension, Malignancy, Other - [place] Patient has suicidal ideation: No Patient has homicidal ideation: No - Past Medical History Cardiac Medical History: Reports: Hx Congestive Heart Failure, Hx Hypertension Denies: Hx Coronary Artery Disease, Hx Heart Attack Pulmonary Medical History: Reports: Hx Bronchitis, Hx COPD - no home oxygen, Hx Pneumonia Denies: Hx Asthma, Hx Tuberculosis Neurological Medical History: Denies: Hx Cerebrovascular Accident, Hx Seizures Renal/ Medical History: Denies: Hx Peritoneal Dialysis GI Medical History: Reports: Hx Gastroesophageal Reflux Disease Musculoskeletal Medical History: Reports Hx Arthritis Psychiatric Medical History: Reports: Hx Depression Past Surgical History: Reports: Hx Cholecystectomy, Hx Hysterectomy, Hx Orthopedic Surgery - Bilateral feet screws. Denies: Hx Pacemaker - Immunizations Hx Diphtheria, Pertussis, Tetanus Vaccination: No Hx Pneumococcal Vaccination: 07/17/11 Review of Systems - Review of Systems Notes: REVIEW OF SYSTEMS: CONSTITUTIONAL : Denies fever, chills, or sweats. Denies recent illness. Denies weight loss, recent hospitalizations. EENT: Denies visual changes, eye pain. Denies sore throat, oral lesions, difficulty swallowing. CARDIOVASCULAR: Denies chest pain. Denies palpitations. Denies lower extremity edema. RESPIRATORY: Denies cough. Denies shortness of breath, wheezing. GASTROINTESTINAL: Denies abdominal distention. Denies blood in vomitus, stools, or per rectum. Denies black, tarry stools. Denies constipation. GENITOURINARY: Denies difficulty urinating, painful urination, frequency, blood in urine, or vaginal discharge. MUSCULOSKELETAL: Denies back or neck pain or stiffness. Denies joint pain or swelling. SKIN: Denies rash, lesions or sores. HEMATOLOGIC : Denies easy bruising or bleeding. LYMPHATIC: Denies swollen glands. NEUROLOGICAL: Denies confusion or altered mental status. Denies loss of consciousness. Denies dizziness or lightheadedness. Denies headache. Denies weakness or paralysis. Denies problems difficulty with ambulation, slurred speech. Denies sensory loss, numbness, or tingling. Denies seizures. PSYCHIATRIC: Denies anxiety or stress. Denies depression, suicidal ideation, or homicidal ideation. Denies visual or auditory hallucinations. Physical Exam - Vital signs Vitals: Temp Pulse Resp BP Pulse Ox 98.2 F 77 22 H 135/60 H 100 03/09/19 21:17 03/09/19 21:17 03/09/19 21:17 03/09/19 21:17 03/09/19 21:17 - Notes Notes: PHYSICAL EXAMINATION: GENERAL: Well-appearing, well-nourished and in no acute distress. HEAD: Atraumatic, normocephalic. EYES: Pupils equal round and reactive to light, extraocular movements intact, conjunctiva are normal. ENT: Nares patent, oropharynx clear without exudates. Moist mucous membranes. NECK: Normal range of motion, supple without lymphadenopathy LUNGS: Breath sounds clear to auscultation bilaterally and equal. No wheezes rales or rhonchi. HEART: Regular rate and rhythm without murmurs ABDOMEN: Soft, tenderness with palpation to the epigastrium, left upper quadrant., nondistended abdomen. No guarding, no rebound. No masses appreciated. Female : deferred Musculoskeletal: Normal range of motion, no pitting or edema. No cyanosis. NEUROLOGICAL: Cranial nerves grossly intact. Normal speech, normal gait. Normal sensory, motor exams PSYCH: Normal mood, normal affect. SKIN: Warm, Dry, normal turgor, no rashes or lesions noted. Course - Re-evaluation Re-evalutation: 03/10/19 07:08 Temp Pulse Resp BP Pulse Ox 98.4 F 84 20 184/72 H 97 03/10/19 05:19 03/10/19 05:19 03/10/19 05:19 03/10/19 05:19 03/10/19 05:19 Temp Pulse Resp BP Pulse Ox 98.4 F 84 20 184/72 H 97 03/10/19 05:19 03/10/19 05:19 03/10/19 05:19 03/10/19 05:19 03/10/19 05:19 Laboratory 03/10/19 03/10/19 03/10/19 00:04 00:04 02:00 WBC 6.2 RBC 4.79 Hgb 12.4 Hct 38.5 MCV 80 MCH 25.8 L MCHC 32.1 RDW 16.7 H Plt Count 213 Seg Neutrophils % 77.4 Lymphocytes % 16.6 Monocytes % 4.7 Eosinophils % 0.9 Basophils % 0.4 Absolute Neutrophils 4.8 Absolute Lymphocytes 1.0 Absolute Monocytes 0.3 Absolute Eosinophils 0.1 Absolute Basophils 0.0 Sodium 137.3 Potassium 4.1 Chloride 102 Carbon Dioxide 27 Anion Gap 8 BUN 13 Creatinine 0.69 Est GFR ( Amer) > 60 Est GFR (Non-Af Amer) > 60 Glucose 106 Calcium 9.7 Total Bilirubin 0.4 Direct Bilirubin 0.3 Neonat Total Bilirubin Not Reportable Neonat Direct Bilirubin Not Reportable Neonat Indirect Bili Not Reportable AST 19 ALT 21 Alkaline Phosphatase 84 Total Protein 7.2 Albumin 4.0 Lipase 114.6 Urine Color YELLOW Urine Appearance SLIGHTLY-CLOUDY Urine pH 8.0 Ur Specific [place] 1.010 Urine Protein NEGATIVE Urine Glucose (UA) NEGATIVE Urine Ketones NEGATIVE Urine Blood NEGATIVE Urine Nitrite NEGATIVE Urine Bilirubin NEGATIVE Urine Urobilinogen NEGATIVE Ur Leukocyte Esterase NEGATIVE Urine WBC (Auto) 2 Urine RBC (Auto) 1 Squamous Epi Cells Auto 9 Urine Mucus (Auto) RARE Urine Ascorbic Acid NEGATIVE Presentation of an overall well-appearing patient in no acute distress with com plaints of nausea, vomiting, diarrhea. This is consistent with likely viral gastroenteritis. Patient has no abdominal tenderness on exam and specifically no tenderness in the RLQ, LLQ, RUQ. Overall well hydrated on exam. Able to tolerate oral intake here in the emergency department. Low clinical suspicion for any acute life-threatening etiology based on exam and history including acute cholecystitis, SBO, appendicitis, nephrolithiasis, or pylonephritis. CMP without evidence of acute hepatitis or significant dehydration. Will plan for discharge at this time with return precautions and followup recommendations. - Vital Signs Vital signs: Temp Pulse Resp BP Pulse Ox 98.2 F 88 18 181/72 H 98 03/10/19 08:14 03/10/19 08:14 03/10/19 08:14 03/10/19 08:14 03/10/19 08:14 - Laboratory Result Diagrams: 03/10/19 00:04 03/10/19 00:04 Laboratory results interpreted by me: 03/10/19 00:04 MCH 25.8 L RDW 16.7 H Discharge - Discharge Clinical Impression: Epigastric abdominal pain Nausea & vomiting Qualifiers: Vomiting type: unspecified Vomiting Intractability: non-intractable Qualified Code(s): R11.2 - Nausea with vomiting, unspecified Diarrhea Qualifiers: Diarrhea type: unspecified type Qualified Code(s): R19.7 - Diarrhea, unspecified Condition: Good Disposition: HOME, SELF-CARE Instructions: Abdominal Pain ([facility]), Diarrhea, Nonspecific ([facility]), Intravenous (IV) Fluids ([facility]), Low-Fat Diet ([facility]), Pain Medication Injection ([facility]), Vomiting ([facility]) Additional Instructions: Your symptoms are likely due to a viral illness and should resolve in the next several days. You can take [id number] loperamide also known as Imodium as needed for diarrhea per box instructions. Continue to stay hydrated with plenty of solution such as Gatorade or Pedialyte. You are being prescribed Zofran to take as needed for nausea and vomiting. Please return if you develop severe abdominal pain, pass out, become unable to tolerate any oral fluids for 12 more hours, or any other symptoms that are concerning to you. Prescriptions: Famotidine [Pepcid 40 mg Tablet] 40 mg PO DAILY #10 tablet Ondansetron [Zofran Odt 4 mg Tablet] 1 - 2 tab PO Q4H PRN #15 tab.rapdis PRN Reason: For Nausea/Vomiting Forms: Elevated Blood Pressure Referrals: MATT MATHIAS DO [Primary Care Provider] - Follow up as needed
[2019-03-10] MEDS ORDERED: ONDANSETRON ODT 4 MG TAB (6 TAB/ER DISP) PO PRN (07:09)
[2019-03-10 08:16] VITALS: BP 181/72
== END 2019-03-10 08:16 | disposition home or self-care (01) ==
LOC: ER 20:55
DX: R10.9 Unspecified abdominal pain (principal); R11.10 Vomiting, unspecified; R10.10 Upper abdominal pain, unspecified; F17.210 Nicotine dependence, cigarettes, uncomplicated; I11.0 Hypertensive heart disease with heart failure; I50.9 Heart failure, unspecified; J44.9 Chronic obstructive pulmonary disease, unspecified; K21.9 Gastro-esophageal reflux disease without esophagitis; Z88.3 Allergy status to other anti-infective agents; Z90.49 Acquired absence of other specified parts of digestive tract; Z90.710 Acquired absence of both cervix and uterus
CPT/HCPCS: 96376; 99406; 99284; 96361; 96374; 96375; 36415; 83690; 85025; 80053; 81001; J1200; J2765; J2270; J2405; J7030; J7120; S0028; A9270

== ENCOUNTER 2019-04-24 10:58 | Emergency (ER) | payer MEDICARE, MEDICAID ==
[2019-04-24] MEDS ORDERED: ASPIRIN 81 MG TABLET, CHEWABLE PO ONE (11:12)
--- NOTE | 2019-04-24 11:14 | ER Document Report ---
ED Medical Screen (RME) - General Chief Complaint: Shortness Of Breath Stated Complaint: SHORT OF BREATH, SWELLING Time Seen by Provider: 04/24/19 11:07 Primary Care Provider: MATT MATHIAS DO [Primary Care Provider] - Follow up as needed Mode of Arrival: Wheelchair Information source: Patient Notes: Patient presents complaining of CHF exacerbation with shortness of breath and chest pain. Patient states she has been retaining fluid for the past week. Patient also reports chest discomfort. Patient was seen in her primary doctor's office and advised to come here for further management of her CHF exacerbation. hx: CHF, COPD I have greeted and performed a rapid initial assessment of this patient. A comprehensive ED assessment and evaluation of the patient, analysis of test results and completion of the medical decision making process will be conducted by additional ED providers. TRAVEL OUTSIDE OF THE [place] IN LAST 30 DAYS: No - Related Data Allergies/Adverse Reactions: clindamycin Allergy (Verified 04/24/19 11:00) sulfamethoxazole [From Bactrim] Allergy (Verified 04/24/19 11:00) trimethoprim [From Bactrim] Allergy (Verified 04/24/19 11:00) vancomycin Allergy (Verified 04/24/19 11:00) Past Medical History - Past Medical History Cardiac Medical History: Reports: Hx Congestive Heart Failure, Hx Hypertension Denies: Hx Coronary Artery Disease, Hx Heart Attack Pulmonary Medical History: Reports: Hx Bronchitis, Hx COPD - no home oxygen, Hx Pneumonia Denies: Hx Asthma, Hx Tuberculosis Neurological Medical History: Denies: Hx Cerebrovascular Accident, Hx Seizures Renal/ Medical History: Denies: Hx Peritoneal Dialysis GI Medical History: Reports: Hx Gastroesophageal Reflux Disease Musculoskeltal Medical History: Reports Hx Arthritis Psychiatric Medical History: Reports: Hx Depression Past Surgical History: Reports: Hx Cholecystectomy, Hx Hysterectomy, Hx Orthopedic Surgery - Bilateral feet screws. Denies: Hx Pacemaker - Immunizations Hx Diphtheria, Pertussis, Tetanus Vaccination: No History of Influenza Vaccine for 07/2017 - 12/2017 Season: Unknown Physical Exam - Vital signs Vitals: Temp Pulse Resp BP Pulse Ox 97.8 F 79 18 128/62 H 94 04/24/19 11:04 04/24/19 11:04 04/24/19 11:04 04/24/19 11:04 04/24/19 11:04 - Respiratory Respiratory status: No respiratory distress. No: Tachypnea Breath sounds: Nonproductive cough, Other - dim in bases Course - Vital Signs Vital signs: Temp Pulse Resp BP Pulse Ox 97.8 F 79 18 128/62 H 94 04/24/19 11:04 04/24/19 11:04 04/24/19 11:04 04/24/19 11:04 04/24/19 11:04 Doctor's Discharge - Discharge Referrals: MATT MATHIAS DO [Primary Care Provider] - Follow up as needed
[2019-04-24 11:56] LABS: ABSOLUTE EOSINOPHILS # (AUTO) 0.1 10^3/uL (0.0-0.6); ABSOLUTE LYMPHOCYTES (AUTO) 0.9 10^3/uL (0.5-4.7); ABSOLUTE MONOCYTES (AUTO) 0.3 10^3/uL (0.1-1.4); ABSOLUTE NEUT (AUTO) 3.6 10^3/uL (1.7-8.2); BASOPHILS % (AUTO) 0.4 % (0-2); EOSINOPHILS % (AUTO) 2.9 % (0-6); HEMATOCRIT 33.5 % (36.0-47.0); HEMOGLOBIN 10.9 g/dL (12.0-15.5); LYMPHOCYTES % (AUTO) 18.5 % (13-45); MEAN CORPUSCULAR HEMOGLOBIN 25.4 pg (27.0-33.4); MEAN CORPUSCULAR HGB CONC 32.5 g/dL (32.0-36.0); MEAN CORPUSCULAR VOLUME 78 fl (80-97); MONOCYTES % (AUTO) 5.8 % (3-13); PLATELET COUNT 191 10^3/uL (150-450); RED CELL DISTRIBUTION WIDTH 17.2 % (11.5-14.0); SEGMENTED NEUTROPHILS % (AUTO) 72.4 % (42-78); TOTAL CELLS COUNTED % (AUTO) 100 %
[2019-04-24 12:20] LABS: ALANINE AMINOTRANSFERASE 24 U/L (9-52); ALBUMIN 3.6 g/dL (3.5-5.0); ALKALINE PHOSPHATASE 77 U/L (38-126); ANION GAP 5 (5-19); ASPARTATE AMINO TRANSFERASE 20 U/L (14-36); BILIRUBIN,DIRECT 0.2 mg/dL (0.0-0.4); BILIRUBIN,TOTAL 0.3 mg/dL (0.2-1.3); BLOOD UREA NITROGEN 13 mg/dL (7-20); CARBON DIOXIDE 30 mmol/L (22-30); CHLORIDE 105 mmol/L (98-107); GLUCOSE 105 mg/dL (75-110); POTASSIUM 4.3 mmol/L (3.6-5.0); SODIUM 140.3 mmol/L (137-145); TOTAL PROTEIN 6.5 g/dL (6.3-8.2)
[2019-04-24 12:32] LABS: NT PRO BNP 282 pg/mL (5-900); TROPONIN I < 0.012 ng/mL
[2019-04-24] MEDS ORDERED: OXYCODONE-ACETAMINOPHEN 5-325 MG TABLET PO ONE (12:47)
[2019-04-24] MEDS ORDERED: FUROSEMIDE INJ/PF 40 MG/4 ML SDV IV ONE (12:48)
--- NOTE | 2019-04-24 12:54 | ER Document Report ---
ED General - General Chief Complaint: Shortness Of Breath Stated Complaint: SHORT OF BREATH, SWELLING Time Seen by Provider: 04/24/19 11:07 Primary Care Provider: MATT WILKES DO [Primary Care Provider] - Follow up as needed Mode of Arrival: Wheelchair TRAVEL OUTSIDE OF THE [place] IN LAST 30 DAYS: No - HPI Notes: Patient is a 58-year-old female that presents to the emergency department for chief complaint of shortness of breath and leg pain. Patient presents from Dr. Wilkes's office for further evaluation of her congestive heart failure. Patient reports increased swelling in her legs over the last few days. She states she has had increased dyspnea on exertion as well. She denies associated chest pain, palpitations and syncope. Patient repo rts a history of congestive heart failure and is on Lasix 40 mg daily. She has been taking her Lasix as directed with the exception of yesterday when she took a second dose to help with the edema. She states she was diuresing well yesterday which has improved her lower externally edema. She reports a throbbing type pain in both of her legs from the edema that is worse with ambulation. She denies taking any pain medication at home. She does not remember the last time she had a cardiac echo. Past Medical History: Hypertension, congestive heart failure, arthritis Past Surgical History: Reviewed in chart Social History: Denies drugs alcohol and tobacco Family History: Reviewed and noncontributory for presenting illness Allergies: Reviewed, see documented allergy list. REVIEW OF SYSTEMS: CONSTITUTIONAL : No fever No chills No diaphoresis No recent illness EENT: No vision changes No congestion No sore throat CARDIOVASCULAR: No chest pain No palpitations RESPIRATORY: shortness of breath No cough difficulty breathing GASTROINTESTINAL: No abdominal pain No nausea No vomiting No diarrhea GENITOURINARY: No dysuria No hematuria No difficulty urinating MUSCULOSKELETAL: No back pain leg pain No arm pain SKIN: No rashes No lesions LYMPHATIC: No swollen, enlarged glands. NEUROLOGICAL: No lightheadedness No headache No weakness No paresthesias PSYCHIATRIC: No anxiety No depression PHYSICAL EXAMINATION: Vital signs reviewed, nursing noted reviewed. GENERAL: Well-appearing, obese and in no acute distress. HEAD: Atraumatic, normocephalic. EYES: Eyes appear normal, extraocular movements intact, sclera anicteric, conjunctiva are normal. ENT: nares patent, oropharynx clear without exudates. Moist mucous membranes. NECK: Normal range of motion, supple without lymphadenopathy LUNGS: Breath sounds cl diminished with mild expiratory wheezing ear to auscultation bilaterally and equal. No accessory muscle use HEART: Regular rate and rhythm without murmurs ABDOMEN: Soft, nontender, normoactive bowel sounds. No rebound, guarding, or rigidity. No masses appreciated. EXTREMITIES: Bilateral lower extremity tenderness to palpation from knees through feet. Good range of motion, +2 pitting edema bilateral lower ext remities, symmetric. NEUROLOGICAL: No focal neurological deficits. Moves all extremities spontaneou sly Motor and sensory grossly intact on exam. PSYCH: Normal mood, normal affect. SKIN: Warm, Dry, normal turgor, lower extremity venous stasis dermatitis - Related Data Allergies/Adverse Reactions: clindamycin Allergy (Verified 04/24/19 11:00) sulfamethoxazole [From Bactrim] Allergy (Verified 04/24/19 11:00) trimethoprim [From Bactrim] Allergy (Verified 04/24/19 11:00) vancomycin Allergy (Verified 04/24/19 11:00) Past Medical History - General Information source: Patient - Social History Smoking Status: Current Every Day Smoker Chew tobacco use (# tins/day): No Frequency of alcohol use: None Drug Abuse: None Family History: Hypertension, Malignancy, Other - [place] Patient has suicidal ideation: No Patient has homicidal ideation: No - Past Medical History Cardiac Medical History: Reports: Hx Congestive Heart Failure, Hx Hypertension Denies: Hx Coronary Artery Disease, Hx Heart Attack Pulmonary Medical History: Reports: Hx Bronchitis, Hx COPD - no home oxygen, Hx Pneumonia Denies: Hx Asthma, Hx Tuberculosis Neurological Medical History: Denies: Hx Cerebrovascular Accident, Hx Seizures Renal/ Medical History: Denies: Hx Peritoneal Dialysis GI Medical History: Reports: Hx Gastroesophageal Reflux Disease Musculoskeletal Medical History: Reports Hx Arthritis Psychiatric Medical History: Reports: Hx Depression Past Surgical History: Reports: Hx Cholecystectomy, Hx Hysterectomy, Hx Orthopedic Surgery - Bilateral feet screws. Denies: Hx Pacemaker - Immunizations Hx Diphtheria, Pertussis, Tetanus Vaccination: No Hx Pneumococcal Vaccination: 07/17/11 Physical Exam - Vital signs Vitals: Temp Pulse Resp BP Pulse Ox 97.8 F 79 18 128/62 H 94 04/24/19 11:04 04/24/19 11:04 04/24/19 11:04 04/24/19 11:04 04/24/19 11:04 Course - Re-evaluation Re-evalutation: 04/24/19 12:52 Vitals reviewed. Nursing notes reviewed. Patient's lab work today shows a mild anemia which is not significantly changed from her baseline. She has no renal insufficiency or electrolyte derangement from her Lasix use. She has a negative troponin and her BNP is low. I did do a chart review which showed a normal EF on her previous echo which was in 2011. Patient does have significant lower extremity edema but is not having any pulmonary vascular congestion or hypoxia. She is breathing at 100% right now on room air with no respiratory distress. Patient is requiring close outpatient management and will be referred to Dr. Hines to establish with cardiology and to get a repeat echo performed. Patient told to return to the emergency room for new or worsening symptoms. She was given a dose of Lasix IV in the emergency room. Her pain was treated with Percocet. Patient and are in agreement with this plan of care. She is discharged in stable condition. - Vital Signs Vital signs: Temp Pulse Resp BP Pulse Ox 97.8 F 79 22 H 139/62 H 100 04/24/19 11:04 04/24/19 11:04 04/24/19 12:07 04/24/19 12:07 04/24/19 12:06 - Laboratory Result Diagrams: 04/24/19 11:20 04/24/19 11:20 Laboratory results interpreted by me: 04/24/19 11:20 Hgb 10.9 L Hct 33.5 L MCV 78 L MCH 25.4 L RDW 17.2 H - EKG Interpretation by Me Additional EKG results interpreted by me: 04/24/19 12:56 Interpreted by myself [id number]: Normal sinus rhythm, rate 78, normal axis, no ectopy, no STEMI Discharge - Discharge Clinical Impression: Leg edema Dyspnea Qualifiers: Dyspnea type: shortness of breath Qualified Code(s): R06.02 - Shortness of breath; R06.00 - Dyspnea, unspecified; R06.01 - Orthopnea Condition: Stable Disposition: HOME, SELF-CARE Instructions: Congestive Heart Failure ([facility]) Additional Instructions: Please return to the emergency department if you have any worsening, or concern of your symptoms. Please return to the emergency department if you develop chest pain, difficulty breathing, severe abdominal pain, or ongoing vomiting. Please follow-up with your primary care physician in 2-3 days and any other re commended physicians. If prescribed, take all medications as directed. If you have any questions or concerns do not hesitate to return the emergency department for evaluation. Keep your lower extremities elevated at or above the level of your heart as often as possible to help with your peripheral edema. Call Dr. Hines's office today to establish follow-up appointment tomorrow. Referrals: MATT WILKES DO [Primary Care Provider] - Follow up as needed GAURAV HINES MD [ACTIVE STAFF] - Follow up tomorrow
--- NOTE | 2019-04-24 13:08 | RADIOLOGY REPORT (SQ) ---
EXAM DESCRIPTION: CHEST 2 VIEWS COMPLETED DATE/TIME: 04/24/2019 12:44 pm REASON FOR STUDY: cp,sob COMPARISON: Two-view chest 01/13/2019 CT abdomen pelvis 04/22/2018 EXAM PARAMETERS: NUMBER OF VIEWS: two views TECHNIQUE: Digital Frontal and Lateral radiographic views of the chest acquired. RADIATION DOSE: NA LIMITATIONS: none FINDINGS: LUNGS AND PLEURA: No opacities, masses or pneumothorax. No pleural effusion. MEDIASTINUM AND HILAR STRUCTURES: No masses or contour abnormalities. HEART AND VASCULAR STRUCTURES: Heart normal size. No evidence for failure. BONES: No acute findings. HARDWARE: None in the chest. OTHER: No other significant finding. IMPRESSION: NO ACUTE RADIOGRAPHIC FINDING IN THE CHEST. TECHNICAL DOCUMENTATION: JOB ID: [id number] [employer]- All Rights Reserved Reading location - IP/workstation name: [email or web address]
[2019-04-24 14:12] VITALS: BP 139/65
--- NOTE | 2019-04-24 21:26 | EKG REPORT ---
SEVERITY:- NORMAL ECG - SINUS RHYTHM : Confirmed by: Dana Paulson MD 24-Apr-2019 21:25:45
== END 2019-04-24 14:12 | disposition home or self-care (01) ==
LOC: ER 10:58
DX: R06.02 Shortness of breath (principal); R06.01 Orthopnea; R60.0 Localized edema; I11.0 Hypertensive heart disease with heart failure; I50.9 Heart failure, unspecified; Z79.899 Other long term (current) drug therapy; J44.9 Chronic obstructive pulmonary disease, unspecified
CPT/HCPCS: 93005; 99285; 96374; 36415; 83735; 85025; 80053; 84484; 83880; 71046; 93010; A9270 ×2; J1940

== ENCOUNTER → 2019-04-30 | Outpatient (CLI) | payer MEDICARE, MEDICAID ==
--- NOTE | 2019-04-30 14:50 | RADIOLOGY REPORT (SQ) ---
EXAM DESCRIPTION: SHOULDER LEFT 2 OR MORE VIEWS COMPLETED DATE/TIME: 04/30/2019 11:21 am REASON FOR STUDY: LEFT FOOT PAIN;LEFT ANTERIOR SHOULDER PAIN;OSTEOARTHRITIS OF SPINE WITH RAC M79.67 2 PAIN IN LEFT FOOT M25.512 PAIN IN LEFT SHOULDER M47.22 OTHER SPONDYLOSIS WITH RADICULOPATHY, CER VICAL REGION COMPARISON: None. NUMBER OF VIEWS: Three views. TECHNIQUE: Internal rotation, external rotation, and Y view images acquired of the left shoulder. LIMITATIONS: None. FINDINGS: MINERALIZATION: Normal. BONES: No acute fracture. No worrisome bone lesions. JOINTS: No dislocation. VISUALIZED LUNGS AND RIBS: No pneumothorax. No rib fracture. SOFT TISSUES: No radiopaque foreign body. OTHER: No other significant finding. IMPRESSION: NEGATIVE STUDY OF THE LEFT SHOULDER. NO RADIOGRAPHIC EVIDENCE OF ACUTE INJURY. TECHNICAL DOCUMENTATION: JOB ID: [id number] [employer]- All Rights Reserved Reading location - IP/workstation name: [email or web address]
--- NOTE | 2019-04-30 14:51 | RADIOLOGY REPORT (SQ) ---
EXAM DESCRIPTION: C SP 4 OR 5 VIEWS COMPLETED DATE/TIME: 04/30/2019 11:21 am REASON FOR STUDY: LEFT FOOT PAIN;LEFT ANTERIOR SHOULDER PAIN;OSTEOARTHRITIS OF SPINE WITH RAC M79.67 2 PAIN IN LEFT FOOT M25.512 PAIN IN LEFT SHOULDER M47.22 OTHER SPONDYLOSIS WITH RADICULOPATHY, CER VICAL REGION COMPARISON: Reversal of the lordotic curve. NUMBER OF VIEWS: Five views including obliques. TECHNIQUE: AP, lateral, obliques and odontoid radiographic images acquired of the cervical spine. LIMITATIONS: None. FINDINGS: MINERALIZATION: Normal. ALIGNMENT: Normal. VERTEBRAE: Maintained height. No fracture or worrisome bone lesion. DISCS: Fusion C5-6. Multilevel disc space narrowing with osteophytes. POSTERIOR ELEMENTS: Pedicles and facets are intact. No posterior arch defects. Facet arthropathy is present. FORAMINA: Narrowed at the levels of maximal disc and facet disease. HARDWARE: None in the spine. PARASPINAL SOFT TISSUES: Normal. OTHER: No other significant finding. IMPRESSION: SPONDYLOSIS WITHOUT BONE LESION OR FRACTURE. TECHNICAL DOCUMENTATION: JOB ID: [id number] [employer]- All Rights Reserved Reading location - IP/workstation name: [email or web address]
--- NOTE | 2019-04-30 14:53 | RADIOLOGY REPORT (SQ) ---
EXAM DESCRIPTION: FOOT LEFT COMPLETE COMPLETED DATE/TIME: 04/30/2019 11:21 am REASON FOR STUDY: LEFT FOOT PAIN;LEFT ANTERIOR SHOULDER PAIN;OSTEOARTHRITIS OF SPINE WITH RAC M79.67 2 PAIN IN LEFT FOOT M25.512 PAIN IN LEFT SHOULDER M47.22 OTHER SPONDYLOSIS WITH RADICULOPATHY, CER VICAL REGION COMPARISON: 02/13/2019 EXAM PARAMETERS: NUMBER OF VIEWS: Three views. TECHNIQUE: AP, lateral and oblique radiographic images acquired of the left foot. LIMITATIONS: None. FINDINGS: MINERALIZATION: Normal. BONES: Old incompletely healed fracture versus malunion versus possible re-injury of the proximal ph alanx of the left 5th digit, on the lateral projection there is dorsal displacement of approximately 2 mm of the plantar cortex of the proximal phalanx metaphysis. 5th metatarsal bone screw appears sta ble. Otherwise no acute fracture. JOINTS: No effusion. SOFT TISSUES: No significant soft tissue swelling. No radiopaque foreign body. OTHER: No other significant finding. IMPRESSION: Old incompletely healed fracture versus malunion versus possible re-injury of the proxim al phalanx of the left 5th digit, on the lateral projection there is dorsal displacement of approxima tely 2 mm of the plantar cortex of the proximal phalanx metaphysis. Otherwise no acute fracture TECHNICAL DOCUMENTATION: JOB ID: [id number] [id number] 2010 [employer]- All Rights Reserved Reading location - IP/workstation name: [email or web address]
== END ==
LOC: OD 10:40
PROVIDERS: ATTEND Family Medicine
DX: M79.672 Pain in left foot (principal); M25.512 Pain in left shoulder; M47.22 Other spondylosis with radiculopathy, cervical region
CPT/HCPCS: 72050

== ENCOUNTER 2019-05-20 11:34 | Emergency (ER) | payer MEDICARE, MEDICAID ==
--- NOTE | 2019-05-20 12:05 | RADIOLOGY REPORT (SQ) ---
EXAM DESCRIPTION: ACUTE ABDOMEN SERIES COMPLETED DATE/TIME: 05/20/2019 11:55 am REASON FOR STUDY: bed [address] gillis COMPARISON: 01/15/2019. NUMBER OF VIEWS: Three views. TECHNIQUE: Frontal chest, supine abdomen and upright/decubitus abdomen radiographic images acquired. LIMITATIONS: None. FINDINGS: CHEST: Lungs clear of infiltrates. FREE AIR: None. No abnormal gas collections. BOWEL GAS PATTERN: Nonobstructive pattern. No dilated loops or air fluid levels. CALCIFICATIONS: No suspicious calcifications. HARDWARE: Surgical clips. SOFT TISSUES: No gross mass or suggestion of organomegaly. BONES: No acute fracture. No worrisome bone lesions. OTHER: No other significant finding. IMPRESSION: NO RADIOGRAPHIC EVIDENCE FOR ACUTE ABDOMINAL DISEASE. TECHNICAL DOCUMENTATION: JOB ID: [id number]- All Rights Reserved Reading location - IP/workstation name: [email or web address]
[2019-05-20] MEDS ORDERED: MINERAL OIL 30 ML UDCUP PR ONE (14:40)
--- NOTE | 2019-05-20 14:50 | ER Document Report ---
ED General - General Chief Complaint: Constipation Stated Complaint: BOWEL ISSUES Time Seen by Provider: 05/20/19 14:12 Primary Care Provider: MATT MATHIAS DO [Primary Care Provider] - Follow up as needed Notes: 68-year-old female brought in by EMS presents emergency department complaining of lower abdominal pain and inability to have a bowel movement for the past 9 days. Patient states that she called her doctor and told him that she could not have a bowel movement and they called and MiraLAX. She tried that and it did not work, she then tried suppositories as well as magnesium citrate, states that she had 2 or 3 bowel movements yesterday with small traces of blood but she is still complaining of lower abdominal pain and rectal pain, feels like there is a boulder in her abdomen. Denies any vomiting, denies any fevers, denies any prior history of constipation this bad. TRAVEL OUTSIDE OF THE [place] IN LAST 30 DAYS: No - Related Data Allergies/Adverse Reactions: clindamycin Allergy (Verified 04/24/19 11:00) sulfamethoxazole [From Bactrim] Allergy (Verified 04/24/19 11:00) trimethoprim [From Bactrim] Allergy (Verified 04/24/19 11:00) vancomycin Allergy (Verified 04/24/19 11:00) Past Medical History - General Information source: Patient - Social History Smoking Status: Current Every Day Smoker Chew tobacco use (# tins/day): No Frequency of alcohol use: None Drug Abuse: None Family History: Hypertension, Malignancy, Other - [place] Patient has suicidal ideation: No Patient has homicidal ideation: No - Past Medical History Cardiac Medical History: Reports: Hx Congestive Heart Failure, Hx Hypertension Denies: Hx Coronary Artery Disease, Hx Heart Attack Pulmonary Medical History: Reports: Hx Bronchitis, Hx COPD - no home oxygen, Hx Pneumonia Denies: Hx Asthma, Hx Tuberculosis Neurological Medical History: Denies: Hx Cerebrovascular Accident, Hx Seizures Renal/ Medical History: Denies: Hx Peritoneal Dialysis GI Medical History: Reports: Hx Gastroesophageal Reflux Disease Musculoskeletal Medical History: Reports Hx Arthritis Psychiatric Medical History: Reports: Hx Depression Past Surgical History: Reports: Hx Cholecystectomy, Hx Hysterectomy, Hx Orthopedic Surgery - Bilateral feet screws. Denies: Hx Pacemaker - Immunizations Hx Diphtheria, Pertussis, Tetanus Vaccination: No Hx Pneumococcal Vaccination: 07/17/11 Review of Systems - Review of Systems Constitutional: No symptoms reported Gastrointestinal: See HPI -: Yes All other systems reviewed and negative Physical Exam - Vital signs Vitals: Temp 98.4 F 05/20/19 12:38 - Notes Notes: GENERAL: Alert, interacts well. No acute distress. Morbidly obese HEAD: Normocephalic, atraumatic EYES: Pupils equal, round and reactive to light, extraocular movements intact. ENT: Oral mucosa moist, tongue midline. NECK: Full range of motion, supple, trachea midline. LUNGS: Clear to auscultation bilaterally, no wheezes, rales or rhonchi, no respiratory distress. HEART: Regular rate and rhythm, no murmurs, gallops, rubs. ABDOMEN: Soft, nontender, nondistended, bowel sounds present in all 4 quadrants. EXTREMITIES: Moves all 4 extremities spontaneously, no edema, radial and dorsalis pedis pulses 2/4 bilaterally. No cyanosis. RECTAL: 2 nonthrombosed hemorrhoids one at 3:00 one at 7:00, minimal tenderness on rectal exam, no fecal impaction. NEUROLOGICAL: Alert and oriented x3, normal speech. PSYCH: Normal mood, normal affect. SKIN: Warm, Dry, normal turgor, no rashes or lesions noted. Course - Re-evaluation Re-evalutation: 05/20/19 18:39 Acute abdominal series does not show any obstruction, rectal examination does not show impaction, patient was given a soap suds and mineral oil enema with large relief of constipation, large stool produced. Patient is feeling much better and requesting to leave. Patient will be discharged home with MiraLAX regimen and mag citrate. - Vital Signs Vital signs: Temp Pulse Resp BP Pulse Ox 98.4 F 05/20/19 12:38 Discharge - Discharge Clinical Impression: Constipation Qualifiers: Constipation type: unspecified constipation type Qualified Code(s): K59.00 - Constipation, unspecified Condition: Stable Disposition: HOME, SELF-CARE Additional Instructions: Constipation Constipation is a common problem. It is especially likely as you get older. Constipation is a common cause of abdominal pain, but sometimes causes no symptoms at all. Causes of constipation include certain medications, dehydration, diets, inactivity, and low-fiber intake. Rarely, it can be a symptom of underlying disease. The physician has evaluated you for this. Avoid constipation by eating a diet high in fiber, fruits, and vegetables. Drink plenty of liquids. Get regular exercise. If possible, avoid constipating medicines like narcotic pain medication. Some vitamin tablets can cause constipation. Stool softeners may be needed for difficult cases. An excellent stool softener is Konsyl which is available at [employer], [employer] [facility]. Just add a teaspoon to a glass of pineapple or orange juice daily or twice a day if needed. Laxatives are useful for occasional constipation. You should use them only when necessary. Too-frequent use can make your bowels dependent on them. Some over the counter laxatives available without prescription are: Please dissolve 1 scoop of MiraLAX in a glass of water once a day to treat constipation. You may increase to twice a day if needed to create soft bowel movements and you may decrease to every other day if you develop diarrhea. For acute constipation, you may drink 1 bottle of magnesium citrate once. Do not do this 2 days in a row. Chronic, custodial use of laxatives or enemas is not a good idea. Your bowel may become dependant on them. You do not need to have a bowel movement every day. Many people do fine with a bowel movement every three or four days. Your stool should be soft like soft serve ice cream. You should call your doctor or return for re-evaluation if you pass blood in the stool, or if you develop fever or increasing abdominal pain. Referrals: MATT MATHIAS DO [Primary Care Provider] - Follow up as needed
== END 2019-05-20 19:40 | disposition home or self-care (01) ==
LOC: ER 11:34
DX: K59.00 Constipation, unspecified (principal); R10.30 Lower abdominal pain, unspecified; K62.89 Other specified diseases of anus and rectum; Z79.899 Other long term (current) drug therapy; I50.9 Heart failure, unspecified; J44.9 Chronic obstructive pulmonary disease, unspecified; F17.200 Nicotine dependence, unspecified, uncomplicated
CPT/HCPCS: 99284; 74022; J3490

== ENCOUNTER 2019-07-28 19:14 | Emergency (ER) | payer MEDICARE, MEDICAID ==
[2019-07-28 19:22] VITALS: BP 143/76
--- NOTE | 2019-07-28 19:50 | ER Document Report ---
ED Medical Screen (RME) - General Chief Complaint: Hand Pain Stated Complaint: RIGHT HAND PAIN Time Seen by Provider: 07/28/19 19:42 Primary Care Provider: MATT MATHIAS DO [Primary Care Provider] - Follow up as needed TRAVEL OUTSIDE OF THE [place] IN LAST 30 DAYS: No - HPI Notes: 07/28/19 19:49 Patient is a 58-year-old female who presents complaining of right wrist, hand, forearm swelling and pain that she noticed this morning when she woke up. She does not recall any injury or insect bite. She has not had any significant redness to the area. Movement makes the pain worse as well as pushing in the area. No fever. I have treated and performed a rapid initial assessment of this patient. A comprehensive ED assessment and evaluation of the patient, analysis of test re sults and completion of medical decision making process will be conducted by additional ED providers. PHYSICAL EXAMINATION: GENERAL: Well-appearing, well-nourished and in no acute distress. A&Ox4. Answers questions appropriately. Right upper extremity: There is noted trace to 1+ pitting edema to the hand and wrist with associated tenderness. 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 There is swelling to the forearm as well as compared to the left side. Pulse 2+ with <3sec cap refill. - Related Data Allergies/Adverse Reactions: clindamycin Allergy (Verified 04/24/19 11:00) sulfamethoxazole [From Bactrim] Allergy (Verified 04/24/19 11:00) trimethoprim [From Bactrim] Allergy (Verified 04/24/19 11:00) vancomycin Allergy (Verified 04/24/19 11:00) Past Medical History - Past Medical History Cardiac Medical History: Reports: Hx Congestive Heart Failure, Hx Hypertension Denies: Hx Coronary Artery Disease, Hx Heart Attack Pulmonary Medical History: Reports: Hx Bronchitis, Hx COPD - no home oxygen, Hx Pneumonia Denies: Hx Asthma, Hx Tuberculosis Neurological Medical History: Denies: Hx Cerebrovascular Accident, Hx Seizures Renal/ Medical History: Denies: Hx Peritoneal Dialysis GI Medical History: Reports: Hx Gastroesophageal Reflux Disease Musculoskeltal Medical History: Reports Hx Arthritis Psychiatric Medical History: Reports: Hx Depression Past Surgical History: Reports: Hx Cholecystectomy, Hx Hysterectomy, Hx Orthopedic Surgery - Bilateral feet screws. Denies: Hx Pacemaker - Immunizations Hx Diphtheria, Pertussis, Tetanus Vaccination: No Physical Exam - Vital signs Vitals: Temp Pulse Resp BP Pulse Ox 98.8 F 96 16 143/76 H 97 07/28/19 19:20 07/28/19 19:20 07/28/19 19:20 07/28/19 19:20 07/28/19 19:20 Course - Vital Signs Vital signs: Temp Pulse Resp BP Pulse Ox 98.8 F 96 16 143/76 H 97 07/28/19 19:20 07/28/19 19:20 07/28/19 19:20 07/28/19 19:20 07/28/19 19:20 Doctor's Discharge - Discharge Referrals: MATT MATHIAS DO [Primary Care Provider] - Follow up as needed
[2019-07-28 20:23] LABS: ABSOLUTE EOSINOPHILS # (AUTO) 0.2 10^3/uL (0.0-0.6); ABSOLUTE LYMPHOCYTES (AUTO) 1.1 10^3/uL (0.5-4.7); ABSOLUTE MONOCYTES (AUTO) 0.3 10^3/uL (0.1-1.4); ABSOLUTE NEUT (AUTO) 3.8 10^3/uL (1.7-8.2); BASOPHILS % (AUTO) 0.5 % (0-2); EOSINOPHILS % (AUTO) 2.9 % (0-6); HEMATOCRIT 38.3 % (36.0-47.0); HEMOGLOBIN 12.2 g/dL (12.0-15.5); LYMPHOCYTES % (AUTO) 21.3 % (13-45); MEAN CORPUSCULAR HEMOGLOBIN 25.2 pg (27.0-33.4); MEAN CORPUSCULAR HGB CONC 31.9 g/dL (32.0-36.0); MEAN CORPUSCULAR VOLUME 79 fl (80-97); MONOCYTES % (AUTO) 5.4 % (3-13); PLATELET COUNT 211 10^3/uL (150-450); RED BLOOD COUNT 4.85 10^6/uL (3.72-5.28); RED CELL DISTRIBUTION WIDTH 17.6 % (11.5-14.0); SEGMENTED NEUTROPHILS % (AUTO) 69.9 % (42-78); TOTAL CELLS COUNTED % (AUTO) 100 %; WHITE BLOOD COUNT 5.4 10^3/uL (4.0-10.5)
[2019-07-28 20:39] LABS: ALKALINE PHOSPHATASE 100 U/L (38-126); ANION GAP 9 (5-19); ASPARTATE AMINO TRANSFERASE 19 U/L (14-36); BILIRUBIN,DIRECT 0.2 mg/dL (0.0-0.4); BILIRUBIN,TOTAL 0.2 mg/dL (0.2-1.3); BLOOD UREA NITROGEN 12 mg/dL (7-20); CALCIUM 9.5 mg/dL (8.4-10.2); CARBON DIOXIDE 25 mmol/L (22-30); CHLORIDE 108 mmol/L (98-107); GLUCOSE 114 mg/dL (75-110); POTASSIUM 4.4 mmol/L (3.6-5.0); TOTAL PROTEIN 7.4 g/dL (6.3-8.2)
[2019-07-28 20:49] LABS: INTERNATIONAL RATION (INR) 0.95; PROTHROMBIN TIME 12.6 SEC (11.4-15.4)
[2019-07-28 20:50] LABS: PARTIAL THROMBOPLASTIN TIME 26.4 SEC (23.5-35.8)
--- NOTE | 2019-07-28 21:15 | RADIOLOGY REPORT (SQ) ---
EXAM DESCRIPTION: XR WRIST 3 OR MORE VIEWS RIGHT COMPLETED DATE/TME: 07/28/2019 19:46 CLINICAL HISTORY: 58 years, Female, swelling/pain COMPARISON: None. NUMBER OF VIEWS: Three TECHNIQUE: Frontal, lateral, and oblique radiographs of the right wrist were obtained LIMITATIONS: None. FINDINGS: Visualized osseous structures are normal in appearance. Joint spaces are well-maintained. No acute fracture or dislocation is evident. Diffuse soft tissue swelling is noted about the hand/wrist. IMPRESSION: Diffuse soft tissue swelling without underlying acute osseous anomaly. copyright 2010 [employer]- All Rights Reserved
[2019-07-28] MEDS ORDERED: OXYCODONE-ACETAMINOPHEN 5-325 MG TABLET PO ONE (21:21)
--- NOTE | 2019-07-28 23:38 | ER Document Report ---
ED General - General Chief Complaint: Hand Pain Stated Complaint: RIGHT HAND PAIN Time Seen by Provider: 07/28/19 19:42 Primary Care Provider: MATT MATHIAS DO [Primary Care Provider] - Follow up as needed TRAVEL OUTSIDE OF THE [place] IN LAST 30 DAYS: No - HPI Notes: Patient is a 58-year-old female who presents emergency department for evaluation of right hand and wrist swelling. She states she woke with it. She denies any injury. No fevers or chills. No nausea or vomiting. She states the pain is "excruciating" and she really cannot further describe it for me. It hurts to move it in any way. It hurts to lightly touch the area. She denies any other new associated complaints or concerns. No numbness or tingling. - Related Data Allergies/Adverse Reactions: clindamycin Allergy (Verified 04/24/19 11:00) sulfamethoxazole [From Bactrim] Allergy (Verified 04/24/19 11:00) trimethoprim [From Bactrim] Allergy (Verified 04/24/19 11:00) vancomycin Allergy (Verified 04/24/19 11:00) Past Medical History - General Information source: Patient - Social History Smoking Status: Current Every Day Smoker Frequency of alcohol use: None Drug Abuse: None Family History: Hypertension, Malignancy, Other - [place] Patient has suicidal ideation: No Patient has homicidal ideation: No - Past Medical History Cardiac Medical History: Reports: Hx Congestive Heart Failure, Hx Hypertension Denies: Hx Coronary Artery Disease, Hx Heart Attack Pulmonary Medical History: Reports: Hx Bronchitis, Hx COPD - no home oxygen, Hx Pneumonia Denies: Hx Asthma, Hx Tuberculosis Neurological Medical History: Denies: Hx Cerebrovascular Accident, Hx Seizures Renal/ Medical History: Denies: Hx Peritoneal Dialysis GI Medical History: Reports: Hx Gastroesophageal Reflux Disease Musculoskeletal Medical History: Reports Hx Arthritis, Reports Hx Fibromyalgia Psychiatric Medical History: Reports: Hx Depression Past Surgical History: Reports: Hx Cholecystectomy, Hx Hysterectomy, Hx Orthopedic Surgery - Bilateral feet screws. Denies: Hx Pacemaker - Immunizations Hx Diphtheria, Pertussis, Tetanus Vaccination: No Hx Pneumococcal Vaccination: 07/17/11 Review of Systems - Review of Systems Constitutional: No symptoms reported EENT: No symptoms reported Cardiovascular: No symptoms reported Respiratory: No symptoms reported Gastrointestinal: No symptoms reported Genitourinary: No symptoms reported Musculoskeletal: See HPI Skin: No symptoms reported Neurological/Psychological: No symptoms reported Physical Exam - Vital signs Vitals: Temp Pulse Resp BP Pulse Ox 98.8 F 96 16 143/76 H 97 07/28/19 19:20 07/28/19 19:20 07/28/19 19:20 07/28/19 19:20 07/28/19 19:20 - Notes Notes: This is a 58-year-old female who appears older than her stated age in no acute distress. Is most likely traumatic, pupils are equal round, reactive to light. Oral mucosa is moist. Uvula is midline. Heart is regular rate and rhythm, lungs are clear to station bilaterally. Examination of the right upper extremity yields trace edema around the dorsum of the hand, the distal forearm. No associated erythema, calor, induration. Full passive and active range of motion of the wrist. Patient states she has too much pain to flex all of her fingers at once, but she has full passive range of motion of all fingers. Full opposition of the thumb. Sensation is intact, radial pulse 2+. Course - Re-evaluation Re-evalutation: 07/28/19 23:37 Patient presents emergency department for evaluation of very mild wrist swelling and wrist pain. I do not have a clear etiology for this patient's pain. She had one Percocet and seemed to be much more comfortable. She has no overlying rashes. No significant fractures, no DVT. Her blood work is largely unremarkable. She is to follow-up with primary care and Ortho, return to the ED with worsening or new concerning symptoms of any sort. - Vital Signs Vital signs: Temp Pulse Resp BP Pulse Ox 98.8 F 96 16 143/76 H 97 07/28/19 19:20 07/28/19 19:20 07/28/19 19:20 07/28/19 19:20 07/28/19 19:20 - Laboratory Result Diagrams: 07/28/19 20:09 07/28/19 20:09 Laboratory results interpreted by me: 07/28/19 07/28/19 20:09 20:09 MCV 79 L MCH 25.2 L MCHC 31.9 L RDW 17.6 H Chloride 108 H Est GFR (MDRD) Non-Af 58 L Glucose 114 H - Diagnostic Test Radiology reviewed: Reports reviewed Radiology results interpreted by me: 10/12/19 23:36 Wrist X-Ray 07/28/19 19:46 IMPRESSION: Diffuse soft tissue swelling without underlying acute osseous anomaly. copyright 2011 [employer]- All Rights Reserved Preliminary report on venous Doppler was negative for DVT. Discharge - Discharge Clinical Impression: Pain and swelling of right wrist Condition: Stable Disposition: HOME, SELF-CARE Additional Instructions: No clear cause was found today for the pain and swelling in your wrist. Rest. Follow-up with primary care and orthopedics this week. Return to the emergency department with worsening or new concerning symptoms of any sort. Referrals: MATT MATHIAS DO [Primary Care Provider] - Follow up as needed
--- NOTE | 2019-07-29 13:01 | XCELERA REPORT ---
[address] [address] Upper Extremity Venous Evaluation Name: DERECK PHELPS Age: 58 yrs Gender: Female : 1960 Patient Status: Emergency Patient Location: ER Study Date: 07/28/2019 10:26 PM Procedure: Unilateral duplex scan of the right upper extremity veins was performed, including responses to compression and other maneuvers. Reason For Study: RUE edema Ordering Physician: GERMANIA MORA Performed By: Arline Schofield Right Side Venous Evaluation Normal vessel filling wall to wall, compression and augmentation as well as Colour flow down to the forearm veins. Interpretation Summary No duplex evidence of DVT or obstruction in the right upper extremity. : GERMANIA MORA > Juan Simon
== END 2019-07-28 23:50 | disposition home or self-care (01) ==
LOC: ER 19:14
DX: M79.641 Pain in right hand (principal); M25.531 Pain in right wrist; M79.89 Other specified soft tissue disorders; F17.200 Nicotine dependence, unspecified, uncomplicated; I50.9 Heart failure, unspecified; I11.0 Hypertensive heart disease with heart failure; J44.9 Chronic obstructive pulmonary disease, unspecified
CPT/HCPCS: 36415; 85025; 85610; 85730; 80053; 93971 ×2; 73110; A9270

== ENCOUNTER 2019-10-10 03:23 | Observation (INO) | payer MEDICARE, MEDICAID ==
[2019-10-10 04:49] LABS: APPEARANCE,URINE CLOUDY; BILIRUBIN,URINE NEGATIVE (NEGATIVE); COLOR,URINE AMBER; GLUCOSE, URINE NEGATIVE (NEGATIVE); KETONES,URINE NEGATIVE (NEGATIVE); LEUKOCYTE ESTERASE,URINE SMALL (NEGATIVE); NITRITE,URINE NEGATIVE (NEGATIVE); PROTEIN,URINE 30 mg/dL (NEGATIVE); URINE SPECIFIC GRAVITY 1.029; UROBILINOGEN,URINE NEGATIVE mg/dL (<2.0)
[2019-10-10 06:24] LABS: ABSOLUTE LYMPHOCYTES (AUTO) 0.9 10^3/uL (0.5-4.7); ABSOLUTE MONOCYTES (AUTO) 0.4 10^3/uL (0.1-1.4); ABSOLUTE NEUT (AUTO) 5.4 10^3/uL (1.7-8.2); BASOPHILS % (AUTO) 0.4 % (0-2); EOSINOPHILS % (AUTO) 0.2 % (0-6); HEMATOCRIT 39.1 % (36.0-47.0); HEMOGLOBIN 12.8 g/dL (12.0-15.5); MEAN CORPUSCULAR HEMOGLOBIN 25.2 pg (27.0-33.4); MEAN CORPUSCULAR HGB CONC 32.8 g/dL (32.0-36.0); MEAN CORPUSCULAR VOLUME 77 fl (80-97); MONOCYTES % (AUTO) 5.7 % (3-13); PLATELET COUNT 157 10^3/uL (150-450); RED BLOOD COUNT 5.07 10^6/uL (3.72-5.28); RED CELL DISTRIBUTION WIDTH 16.3 % (11.5-14.0); SEGMENTED NEUTROPHILS % (AUTO) 80.7 % (42-78); TOTAL CELLS COUNTED % (AUTO) 100 %; WHITE BLOOD COUNT 6.7 10^3/uL (4.0-10.5)
[2019-10-10 06:30] LABS: ALBUMIN 3.7 g/dL (3.5-5.0); ALKALINE PHOSPHATASE 99 U/L (38-126); ANION GAP 8 (5-19); ASPARTATE AMINO TRANSFERASE 19 U/L (14-36); BILIRUBIN,DIRECT 0.1 mg/dL (0.0-0.4); BILIRUBIN,TOTAL 0.5 mg/dL (0.2-1.3); BLOOD UREA NITROGEN 10 mg/dL (7-20); CALCIUM 9.7 mg/dL (8.4-10.2); CARBON DIOXIDE 23 mmol/L (22-30); CHLORIDE 108 mmol/L (98-107); GLUCOSE 107 mg/dL (75-110); POTASSIUM 3.6 mmol/L (3.6-5.0); TOTAL PROTEIN 6.6 g/dL (6.3-8.2)
[2019-10-10] MEDS ORDERED: CEFTRIAXONE INJ 1000 MG VIAL IV ONE (08:05)
[2019-10-10] MEDS ORDERED: NORMAL SALINE 1000 ML 1,000 ML IV ONE (08:06)
[2019-10-10] MEDS ORDERED: ONDANSETRON HCL INJ/PF 4 MG/2 ML SDV IV ONE (08:06)
--- NOTE | 2019-10-10 08:15 | ER Document Report ---
ED GI/ - General Chief Complaint: Nausea/Vomiting Stated Complaint: UPPER ABDOMINAL PAIN Time Seen by Provider: 10/10/19 07:28 Primary Care Provider: MATT MATHIAS DO [Primary Care Provider] - Follow up as needed Information source: Patient, Relative TRAVEL OUTSIDE OF THE [place] IN LAST 30 DAYS: No - HPI Notes: 10/10/19 08:11 Patient complains of upper abdominal pain x3 days. Patient was here for similar symptoms yesterday and was discharged home after normal work-up including abnormal CAT scan of the abdomen. Patient states that her symptoms have not improved. She continues to have generalized abdominal pain and nausea and vomiting. Denies any chest pain or shortness of breath. Past surgical history includes cholecystectomy and hysterectomy. Patient has a history of pancreatitis in the past. No other complaints. No rashes. Patient had a Sanches catheter placed yesterday that was removed before she left the ER. - Related Data Allergies/Adverse Reactions: clindamycin Allergy (Verified 04/24/19 11:00) sulfamethoxazole [From Bactrim] Allergy (Verified 04/24/19 11:00) trimethoprim [From Bactrim] Allergy (Verified 04/24/19 11:00) vancomycin Allergy (Verified 04/24/19 11:00) Past Medical History - Social History Smoking Status: Current Every Day Smoker Family History: Hypertension, Malignancy, Other - [place] Patient has suicidal ideation: No Patient has homicidal ideation: No - Past Medical History Cardiac Medical History: Reports: Hx Congestive Heart Failure, Hx Hypertension Denies: Hx Coronary Artery Disease, Hx Heart Attack Pulmonary Medical History: Reports: Hx Bronchitis, Hx COPD - no home oxygen, Hx Pneumonia Denies: Hx Asthma, Hx Tuberculosis Neurological Medical History: Denies: Hx Cerebrovascular Accident, Hx Seizures Renal/ Medical History: Denies: Hx Peritoneal Dialysis GI Medical History: Reports: Hx Gastroesophageal Reflux Disease Musculoskeletal Medical History: Reports Hx Arthritis, Reports Hx Fibromyalgia Psychiatric Medical History: Reports: Hx Depression Past Surgical History: Reports: Hx Cholecystectomy, Hx Hysterectomy - complete due to CA, Hx Orthopedic Surgery - Bilateral feet screws. Denies: Hx Pacemaker - Immunizations Hx Diphtheria, Pertussis, Tetanus Vaccination: No Hx Pneumococcal Vaccination: 07/17/11 Review of Systems - Review of Systems Constitutional: denies: Chills, Fever Gastrointestinal: Abdominal pain, Vomiting -: Yes All other systems reviewed and negative Physical Exam - Vital signs Vitals: Temp Pulse BP Pulse Ox 98.5 F 63 161/88 H 100 10/10/19 03:32 10/10/19 03:32 10/10/19 03:32 10/10/19 03:32 - General General appearance: Appears well, Alert - HEENT Head: Normocephalic, Atraumatic Eyes: Normal Pupils: PERRL Mucous membranes: Dry - Respiratory Respiratory status: No respiratory distress Chest status: Nontender Breath sounds: Normal Chest palpation: Normal - Cardiovascular Rhythm: Regular Heart sounds: Normal auscultation Murmur: No - Abdominal Distension: No distension Bowel sounds: Normal Tenderness: Tender. No: Guarding, Rebound Organomegaly: No organomegaly - Back Back: Normal, Nontender - Extremities General upper extremity: Normal inspection, Nontender, Normal color, Normal ROM, Normal temperature General lower extremity: Normal inspection, Nontender, Normal color, Normal ROM, Normal temperature, Normal weight bearing. No: Xavier's sign - Neurological Neuro grossly intact: Yes Cognition: Normal Orientation: AAOx4 [place] Coma Scale Eye Opening: Spontaneous Ramya Coma Scale Verbal: Oriented [place] Coma Scale Motor: Obeys Commands Ramya Coma Scale Total: 15 Speech: Normal Motor strength normal: LUE, RUE, LLE, RLE Sensory: Normal - Psychological Associated symptoms: Normal affect, Normal mood - Skin Skin Temperature: Warm Skin Moisture: Dry Skin Color: Normal Course - Re-evaluation Re-evalutation: 10/10/19 08:14 I ordered Rocephin because I was worried about a bladder infection given the red blood cells present in her urine. 10/10/19 08:33 EKG per ky shows normal sinus rhythm at a rate of 69 normal axis. Mild artifact. No change from yesterday. 10/10/19 09:[address] abdomen and pelvis today no acute disease per radiologist. 10/10/19 10:57 Discussed case in detail with the physician media center assistant Matthew who is accepting the patient from Dr. Hawkins. Admission to a regular bed. Patient stable. - Vital Signs Vital signs: Temp Pulse Resp BP Pulse Ox 98.1 F 70 20 155/80 H 97 10/10/19 08:04 10/10/19 08:04 10/10/19 08:04 10/10/19 08:04 10/10/19 08:04 - Laboratory Result Diagrams: 10/10/19 05:55 10/10/19 05:55 Laboratory results interpreted by me: 10/10/19 10/10/19 10/10/19 04:24 05:55 05:55 MCV 77 L MCH 25.2 L RDW 16.3 H Seg Neutrophils % 80.7 H Chloride 108 H Urine Protein 30 H Urine Blood MODERATE H Ur Leukocyte Esterase SMALL H Discharge - Discharge Clinical Impression: Abdominal pain Qualifiers: Abdominal location: generalized Qualified Code(s): R10.84 - Generalized abdominal pain UTI (urinary tract infection) Qualifiers: Urinary tract infection type: acute cystitis Hematuria presence: with hematuria Qualified Code(s): N30.01 - Acute cystitis with hematuria Condition: Stable Disposition: ADMITTED INPATIENT Admitting Provider: Miguel (Hospitalist) Unit Admitted: Medical Floor Referrals: MATT MATHIAS DO [Primary Care Provider] - Follow up as needed
--- NOTE | 2019-10-10 09:26 | RADIOLOGY REPORT (SQ) ---
EXAM DESCRIPTION: CT ABD/PELVIS NO ORAL OR IV COMPLETED DATE/TIME: 10/10/2019 9:13 am REASON FOR STUDY: abd pain COMPARISON: Previous day. TECHNIQUE: CT scan of the abdomen and pelvis performed without intravenous or oral contrast. Images reviewed with lung, soft tissue, and bone windows. Reconstructed coronal and sagittal MPR images revi ewed. All images stored on PACS. All CT scanners at this facility use dose modulation, iterative reconstruction, and/or weight based d osing when appropriate to reduce radiation dose to as low as reasonably achievable (ALARA). [facility]: Dose Right [facility]: CareDose [facility]: Dose Right [facility]: Teradose 4D [facility]: Smart Sh[employer] Babies RADIATION DOSE: CT Rad equipment meets quality standard of care and radiation dose reduction techniq ues were employed. CTDIvol: 19.2 mGy. DLP: 1159 mGy-cm.mGy. LIMITATIONS: Small amount of residual contrast in the collecting systems. FINDINGS: LOWER CHEST: No significant findings. No nodules or infiltrates. NON-CONTRASTED LIVER, SPLEEN, ADRENALS: Unchanged right adrenal nodule. PANCREAS: No masses. No peripancreatic inflammatory changes. GALLBLADDER: Surgically absent. RIGHT KIDNEY AND URETER: No suspicious masses. Assessment limited by lack of IV contrast. No signif icant calcifications. No hydronephrosis or hydroureter. LEFT KIDNEY AND URETER: No suspicious masses. Assessment limited by lack of IV contrast. No signifi cant calcifications. No hydronephrosis or hydroureter. AORTA AND RETROPERITONEUM: No aneurysm. No retroperitoneal masses or adenopathy. BOWEL AND PERITONEAL CAVITY: No obvious masses or inflammatory changes. No free fluid. APPENDIX: Surgically absent. PELVIS, BLADDER, AND ABDOMINAL WALL:No abnormal masses. No free fluid. Bladder normal. BONES: No significant findings. OTHER: No other significant finding. IMPRESSION: NO SIGNIFICANT OR ACUTE PROCESS IN THE ABDOMEN OR PELVIS. COMMENT: Quality ID # [id number]: Final reports with documentation of one or more dose reduction techniques (e.g., Automated exposure control, adjustment of the mA and/or kV according to patient size, use of iterative reconstruction technique) TECHNICAL DOCUMENTATION: JOB ID: [id number] [employer]- All Rights Reserved Reading location - IP/workstation name: [email or web address]-[email or web address]
[2019-10-10] MEDS ORDERED: HYDROMORPHONE HCL INJ/PF 2 MG/ML AMPULE IV PRN (09:35)
[2019-10-10] MEDS ORDERED: ACETAMINOPHEN 325 MG TABLET PO PRN (11:47)
[2019-10-10] MEDS ORDERED: PROMETHAZINE HCL INJ 25 MG/1 ML VIAL IV PRN (11:47)
[2019-10-10] MEDS ORDERED: MORPHINE SULFATE 10 MG/ML INJ IV PRN (11:55)
--- NOTE | 2019-10-10 12:06 | PDOC H&P ---
History of Present Illness Admission Date/PCP: 10/10/19 11:54 MATT MATHIAS DO History of Present Illness: DERECK PHELPS is a 58 year old female who was seen in the emergency room for intractable vomiting. Patient states that she thinks she is vomited over 15 or 20 times in the last 24 hours, she was actually in the emergency room yesterday for the same thing and sent home. Patient states that when she got home she drank a little Sprite and seemed to be fine for a while and then the vomiting started again. States she took some Zofran but the taste of it bothers her so much that makes her nauseated. He does not think the Zofran is helping. Patient denies any fever chills or diarrhea in fact she says she is constipated. States she has recently within the last for 5 months had an upper and lower scope, by gastroenterology that was unrevealing. Patient has had 2 CT scans in the last 24 hours now the last and with IV contrast and both have been unremarkable. Patient was seen here in the emergency room back in February on the for the same problem and then also in January 14 for the same problem, i.e. vomiting. Patient arthur also been seen for multiple different pain problems in the ER. Patient has had her gallbladder out in the past and patient has also had pancreatitis in the past, however not from alcohol. Patient also has a history of restless leg syndrome, fibromyalgia, hypertension. Patient will be put in the hospital for observation status and treated sympt omatically with recheck of her labs. She will be kept n.p.o. except for ice chips. She will be given IV fluids.. Past Medical History Cardiac Medical History: Reports: Congestive Heart Failure, Hypertension Denies: Coronary Artery Disease, Myocardial Infarction Pulmonary Medical History: Reports: Bronchitis, Chronic Obstructive Pulmonary Disease (COPD) - no home oxygen, Pneumonia Denies: Asthma, Tuberculosis Neurological Medical History: Reports: Other - Restless leg syndrome Denies: Seizures Endocrine Medical History: Reports: Other - For myalgia GI Medical History: Reports: Gastroesophageal Reflux Disease Musculoskeltal Medical History: Reports: Arthritis, Fibromyalgia Psychiatric Medical History: Reports: Depression Hematology: Denies: Anemia Past Surgical History Past Surgical History: Reports: Cholecystectomy, Hysterectomy - complete due to CA, Orthopedic Surgery - Bilateral feet screws Denies: Pacemaker Social History Smoking Status: Current Every Day Smoker Frequency of Alcohol Use: None Hx Recreational Drug Use: No Drugs: None Hx Prescription Drug Abuse: No - Advance Directive Resuscitation Status: Full Code Family History Family History: Hypertension, Malignancy, Other - ID Parental Family History Reviewed: No Children Family History Reviewed: No Sibling(s) Family History Reviewed.: No Medication/Allergy Home Medications: Omeprazole 40 mg PO BIDACBS 01/14/19 Albuterol Sulfate [Albuterol Sulfate Hfa] 2 puff IH Q6HP PRN 05/20/19 Amitriptyline HCl [Elavil 10 Mg Tablet] 10 mg PO QHS 05/20/19 Buspirone HCl 15 mg PO Q12 05/20/19 Clonidine HCl [Catapres 0.1 mg Tablet] 0.1 mg PO Q12 05/20/19 Losartan Potassium [Cozaar 50 mg Tablet] 50 mg PO DAILY 05/20/19 Oxycodone HCl/Acetaminophen [Oxycodone-Acetaminophen 10-325] 1 each PO Q6HP PRN 05/20/19 Polyethylene Glycol 3350 [Miralax Powder 17 gm/Packet] 1 packet PO DAILYP PRN 05/20/19 Pregabalin [Lyrica] 150 mg PO Q8 05/20/19 Ondansetron [Zofran Odt 4 mg Tablet] 1 - 2 tab PO Q8HP PRN #20 tab.rapdis 10/09/19 Promethazine HCl [Phenergan 25 mg Supp.rect] 1 supp [place] Q6H #15 supp.rect 10/09/19 Allergies/Adverse Reactions: clindamycin Allergy (Verified 04/24/19 11:00) sulfamethoxazole [From Bactrim] Allergy (Verified 04/24/19 11:00) trimethoprim [From Bactrim] Allergy (Verified 04/24/19 11:00) vancomycin Allergy (Verified 04/24/19 11:00) Review of Systems Constitutional: ABSENT: chills, fever(s), headache(s), weight gain, weight loss Cardiovascular: ABSENT: chest pain, dyspnea on exertion, edema, orthropnea, palpitations Respiratory: ABSENT: cough, hemoptysis Gastrointestinal: PRESENT: abdominal pain, constipation, nausea, vomiting Musculoskeletal: PRESENT: other - Knee pain Neurological: PRESENT: other - Restless leg syndrome. ABSENT: abnormal gait, abnormal speech, confusion, dizziness, focal weakness, syncope Psychiatric: PRESENT: other Physical Exam Vital Signs: Temp Pulse Resp BP Pulse Ox 98.1 F 70 20 155/80 H 97 10/10/19 08:04 10/10/19 08:04 10/10/19 08:04 10/10/19 08:04 10/10/19 08:04 Intake & Output 10/09/19 10/10/19 10/11/19 06:59 06:59 06:59 Weight 145.15 kg General appearance: PRESENT: mild distress, other - This appears to be subjective Respiratory exam: PRESENT: clear to auscultation jimmy. ABSENT: rales, rhonchi, wheezes Cardiovascular exam: PRESENT: RRR. ABSENT: diastolic murmur, rubs, systolic murmur GI/Abdominal exam: PRESENT: normal bowel sounds, soft, tenderness - Left upper quadrant, epigastric, right upper quadrant Neurological exam: PRESENT: alert, awake, oriented to person, oriented to place, oriented to time, oriented to situation, CN II-XII grossly intact. ABSENT: motor sensory deficit Psychiatric exam: PRESENT: anxious Results Laboratory Results: 10/10/19 05:55 10/10/19 05:55 10/10/19 10/10/19 10/10/19 04:24 05:55 05:55 WBC 6.7 RBC 5.07 Hgb 12.8 Hct 39.1 MCV 77 L MCH 25.2 L MCHC 32.8 RDW 16.3 H Plt Count 157 Seg Neutrophils % 80.7 H Sodium 138.6 Potassium 3.6 Chloride 108 H Carbon Dioxide 23 Anion Gap 8 BUN 10 Creatinine 0.76 Est GFR ( Amer) > 60 Glucose 107 Calcium 9.7 Total Bilirubin 0.5 AST 19 Alkaline Phosphatase 99 Total Protein 6.6 Albumin 3.7 Lipase 54.3 Urine Color LIZANDRO Urine Appearance CLOUDY Urine pH 8.0 Ur Specific [place] 1.029 Urine Protein 30 H Urine Glucose (UA) NEGATIVE Urine Ketones NEGATIVE Urine Blood MODERATE H Urine Nitrite NEGATIVE Ur Leukocyte Esterase SMALL H Urine WBC (Auto) 28 Urine RBC (Auto) 148 10/10/19 05:55 Troponin I < 0.012 Impressions: Abdomen/Pelvis CT 10/10/19 08:02 IMPRESSION: NO SIGNIFICANT OR ACUTE PROCESS IN THE ABDOMEN OR PELVIS. Assessment and Plan - Diagnosis (1) Abdominal pain Qualifiers: Abdominal location: generalized Qualified Code(s): R10.84 - Generalized abdominal pain Is this a current diagnosis for this admission?: Yes (2) Fibromyalgia Is this a current diagnosis for this admission?: Yes (3) Hypertension Qualifiers: Hypertension type: unspecified Qualified Code(s): I10 - Essential (primary) hypertension Is this a current diagnosis for this admission?: Yes (4) Morbid obesity Is this a current diagnosis for this admission?: Yes (5) Nausea and vomiting Qualifiers: Vomiting Intractability: non-intractable Is this a current diagnosis for this admission?: Yes - Plan Summary Summary: 10/10/2019 Julien chips only, IV fluids, repeat labs, Phenergan and Reglan as needed. We will resume home medicines when able to take p.o.'s. Patient was placed on observation status - Time Time Spent with patient: 35 or more minutes
[2019-10-10] MEDS ORDERED: FAMOTIDINE INJ/PF 20 MG/2 ML SDV IV ONE (15:00)
[2019-10-10] MEDS: NORMAL SALINE 1000 ML 1,000 ML IV PRN (15:01)
[2019-10-10] MEDS: METOCLOPRAMIDE HCL INJ/PF 10 MG/2 ML SDV IV SCH ×2 (16:30→21:54)
[2019-10-10] MEDS: DOCUSATE SODIUM 100 MG CAPSULE PO SCH (17:40)
[2019-10-10] MEDS: HYDROCODONE/ACETAMINOPHEN 10-325 MG TABLET PO PRN (18:29)
[2019-10-10] MEDS ORDERED: INFLUENZA QUAD (6MOS+) 2019-20 VAC 0.5 ML SYR IM ONE (19:32)
--- NOTE | 2019-10-10 20:08 | EKG REPORT ---
SEVERITY:- OTHERWISE NORMAL ECG - SINUS ARRHYTHMIA, RATE 53-77 : Confirmed by: Dana Paulson MD 10-Oct-2019 20:07:48
[2019-10-10] MEDS: FAMOTIDINE INJ/PF 20 MG/2 ML SDV IV SCH (21:54)
[2019-10-11] MEDS: HYDROCODONE/ACETAMINOPHEN 10-325 MG TABLET PO PRN ×3 (00:19→09:10)
[2019-10-11] MEDS: NORMAL SALINE 1000 ML 1,000 ML IV PRN ×2 (00:20→07:54)
[2019-10-11 05:26] LABS: ABSOLUTE LYMPHOCYTES (AUTO) 1.2 10^3/uL (0.5-4.7); ABSOLUTE MONOCYTES (AUTO) 0.4 10^3/uL (0.1-1.4); BASOPHILS % (AUTO) 0.3 % (0-2); EOSINOPHILS % (AUTO) 0.9 % (0-6); HEMATOCRIT 38.1 % (36.0-47.0); HEMOGLOBIN 12.4 g/dL (12.0-15.5); LYMPHOCYTES % (AUTO) 25.2 % (13-45); MEAN CORPUSCULAR HEMOGLOBIN 25.4 pg (27.0-33.4); MEAN CORPUSCULAR HGB CONC 32.4 g/dL (32.0-36.0); MEAN CORPUSCULAR VOLUME 78 fl (80-97); MONOCYTES % (AUTO) 8.1 % (3-13); PLATELET COUNT 151 10^3/uL (150-450); RED BLOOD COUNT 4.86 10^6/uL (3.72-5.28); RED CELL DISTRIBUTION WIDTH 16.3 % (11.5-14.0); SEGMENTED NEUTROPHILS % (AUTO) 65.5 % (42-78); TOTAL CELLS COUNTED % (AUTO) 100 %; WHITE BLOOD COUNT 4.7 10^3/uL (4.0-10.5)
[2019-10-11 05:58] LABS: ALBUMIN 3.6 g/dL (3.5-5.0); ALKALINE PHOSPHATASE 96 U/L (38-126); ANION GAP 9 (5-19); ASPARTATE AMINO TRANSFERASE 18 U/L (14-36); BILIRUBIN,DIRECT 0.2 mg/dL (0.0-0.4); BILIRUBIN,TOTAL 0.5 mg/dL (0.2-1.3); BLOOD UREA NITROGEN 10 mg/dL (7-20); CALCIUM 9.1 mg/dL (8.4-10.2); CARBON DIOXIDE 22 mmol/L (22-30); CHLORIDE 111 mmol/L (98-107); GLUCOSE 86 mg/dL (75-110); POTASSIUM 3.5 mmol/L (3.6-5.0); TOTAL PROTEIN 6.5 g/dL (6.3-8.2)
[2019-10-11] MEDS: METOCLOPRAMIDE HCL INJ/PF 10 MG/2 ML SDV IV SCH ×2 (07:50→11:34)
[2019-10-11] MEDS: FAMOTIDINE INJ/PF 20 MG/2 ML SDV IV SCH (09:11)
[2019-10-11] MEDS: DOCUSATE SODIUM 100 MG CAPSULE PO SCH (09:11)
[2019-10-11] MEDS ORDERED: ENOXAPARIN SODIUM INJ 40 MG/0.4 ML DISP.SYRIN SUBCUT SCH (10:00)
[2019-10-11 11:11] VITALS: BP 165/73
--- NOTE | 2019-10-14 18:19 | PDOC DISCHARGE SUMMARY ---
Impression - Admit/DC Date/PCP Admission Date/Primary Care Provider: 10/10/19 11:54 MATT MATHIAS DO Discharge Date: 10/11/19 - Discharge Diagnosis (1) Abdominal pain Is this a current diagnosis for this admission?: Yes (2) Fibromyalgia Is this a current diagnosis for this admission?: Yes (3) Hypertension Is this a current diagnosis for this admission?: Yes (4) Morbid obesity Is this a current diagnosis for this admission?: Yes (5) Nausea and vomiting Is this a current diagnosis for this admission?: Yes - Assessment Summary: 10/10/2019 Julien chips only, IV fluids, repeat labs, Phenergan and Reglan as needed. We will resume home medicines when able to take p.o.'s. Patient was placed on observation status 10/11/2019 Has had no vomiting since she was admitted. She has asked for her pain med ication. Prescription for Phenergan suppositories dispensed 12. She has Zofran at home Labs at the time of discharge reveal a normal CBC Chemistry panels are also normal Culture shows no growth in 4 days She was taking p.o.'s well Is medically stable for discharge to follow-up with her primary care doctor as well as her pain management physician. Patient has had multiple admissions for vomiting as well as pain issues. - Additional Information Resuscitation Status: Full Code Discharge Diet: Full Liquids Discharge Activity: Activity As Tolerated Referrals: MATT MATHIAS DO [Primary Care Provider] - 10/23/19 4:00 pm Prescriptions: Promethazine HCl [Phenergan 25 mg Supp.rect] 1 supp [place] Q6H #12 supp.rect Home Medications: Buspirone HCl [Buspar 15 mg Tablet] 1 tab PO BID 10/11/19 Clonidine HCl [Catapres] 0.1 mg PO DAILY 10/11/19 Docusate Sodium [Colace 100 mg Capsule] 100 mg PO BID capsule 10/11/19 Duloxetine HCl [Cymbalta] 30 mg PO DAILY 10/11/19 Losartan Potassium [Cozaar 50 mg Tablet] 50 mg PO DAILY 10/11/19 Mirabegron [Myrbetriq] 50 mg PO DAILY 10/11/19 Naloxegol Oxalate [Movantik 25 mg Tablet] 25 mg PO DAILY 10/11/19 Omeprazole 40 mg PO BID 10/11/19 Oxycodone HCl/Acetaminophen [Percocet 10-325 mg Tablet] 1 each PO Q8HP PRN 10/11/19 Pramipexole Di-HCl [Pramipexole ER] 1.5 mg PO TID 10/11/19 Pregabalin [Lyrica] 150 mg PO TID 10/11/19 Promethazine HCl [Phenergan 25 mg Supp.rect] 1 supp [place] Q6H #12 supp.rect 10/11/19 Topiramate [Topamax] 100 mg PO DAILY 10/11/19 History of Present Illiness History of Present Illness: DERECK PHELPS is a 58 year old female who was seen in the emergency room for intractable vomiting. Patient states that she thinks she is vomited over 15 or 20 times in the last 24 hours, she was actually in the emergency room yesterday for the same thing and sent home. Patient states that when she got home she drank a little Sprite and seemed to be fine for a while and then the vomiting started again. States she took some Zofran but the taste of it bothers her so much that makes her nauseated. He does not think the Zofran is helping. Patient denies any fever chills or diarrhea in fact she says she is constipated. States she has recently within the last for 5 months had an upper and lower scope, by gastroenterology that was unrevealing. Patient has had 2 CT scans in the last 24 hours now the last and with IV contras t and both have been unremarkable. Patient was seen here in the emergency room back in February on the for the same problem and then also in January 14 for the same problem, i.e. vomiting. Patient arthur also been seen for multiple different pain problems in the ER. Patient has had her gallbladder out in the past and patient has also had pancreatitis in the past, however not from alcohol. Patient also has a history of restless leg syndrome, fibromyalgia, hypertension. Patient will be put in the hospital for observation status and treated symptomatically with recheck of her labs. She will be kept n.p.o. except for ice chips. She will be given IV fluids.. Physical Exam Vital Signs: Temp Pulse Resp BP Pulse Ox 97.9 F 79 12 165/73 H 97 10/11/19 11:05 10/11/19 11:05 10/11/19 11:05 10/11/19 11:05 10/11/19 11:05 Results Laboratory Results: WBC 4.7 10^3/uL (4.0-10.5) 10/11/19 04:46 RBC 4.86 10^6/uL (3.72-5.28) 10/11/19 04:46 Hgb 12.4 g/dL (12.0-15.5) 10/11/19 04:46 Hct 38.1 % (36.0-47.0) 10/11/19 04:46 MCV 78 fl (80-97) L 10/11/19 04:46 MCH 25.4 pg (27.0-33.4) L 10/11/19 04:46 MCHC 32.4 g/dL (32.0-36.0) 10/11/19 04:46 RDW 16.3 % (11.5-14.0) H 10/11/19 04:46 Plt Count 151 10^3/uL (150-450) 10/11/19 04:46 Lymph % (Auto) 25.2 % (13-45) 10/11/19 04:46 [place] % (Auto) 8.1 % (3-13) 10/11/19 04:46 Eos % (Auto) 0.9 % (0-6) 10/11/19 04:46 Baso % (Auto) 0.3 % (0-2) 10/11/19 04:46 Absolute Neuts (auto) 3.0 10^3/uL (1.7-8.2) 10/11/19 04:46 Absolute Lymphs (auto) 1.2 10^3/uL (0.5-4.7) 10/11/19 04:46 Absolute Monos (auto) 0.4 10^3/uL (0.1-1.4) 10/11/19 04:46 Absolute Eos (auto) 0.0 10^3/uL (0.0-0.6) 10/11/19 04:46 Absolute Basos (auto) 0.0 10^3/uL (0.0-0.2) 10/11/19 04:46 Seg Neutrophils % 65.5 % (42-78) 10/11/19 04:46 Sodium 142.2 mmol/L (137-145) 10/11/19 04:46 Potassium 3.5 mmol/L (3.6-5.0) L 10/11/19 04:46 Chloride 111 mmol/L (98-107) H 10/11/19 04:46 Carbon Dioxide 22 mmol/L (22-30) 10/11/19 04:46 Anion Gap 9 (5-19) 10/11/19 04:46 BUN 10 mg/dL (7-20) 10/11/19 04:46 Creatinine 0.89 mg/dL (0.52-1.25) 10/11/19 04:46 Est GFR ( Amer) > 60 (>60) 10/11/19 04:46 Est GFR (MDRD) Non-Af > 60 (>60) 10/11/19 04:46 Glucose 86 mg/dL (75-110) 10/11/19 04:46 Hemoglobin A1c % 5.7 % (4.7-6.0) 10/11/19 04:46 Calcium 9.1 mg/dL (8.4-10.2) 10/11/19 04:46 Magnesium 2.1 mg/dL (1.6-2.3) 10/11/19 04:46 Total Bilirubin 0.5 mg/dL (0.2-1.3) 10/11/19 04:46 Direct Bilirubin 0.2 mg/dL (0.0-0.4) 10/11/19 04:46 Neonat Total Bilirubin Not Reportable 10/11/19 04:46 Neonat Direct Bilirubin Not Reportable 10/11/19 04:46 Neonat Indirect Bili Not Reportable 10/11/19 04:46 AST 18 U/L (14-36) 10/11/19 04:46 ALT 14 U/L (<35) 10/11/19 04:46 Alkaline Phosphatase 96 U/L (38-126) 10/11/19 04:46 Troponin I < 0.012 ng/mL 10/10/19 05:55 Total Protein 6.5 g/dL (6.3-8.2) 10/11/19 04:46 Albumin 3.6 g/dL (3.5-5.0) 10/11/19 04:46 Amylase 37 U/L (30-110) 10/10/19 05:55 Lipase 92.7 U/L (23-300) 10/11/19 04:46 TSH 1.79 uIU/mL (0.47-4.68) 10/10/19 05:55 Urine Color LIZANDRO 10/10/19 04:24 Urine Appearance CLOUDY 10/10/19 04:24 Urine pH 8.0 (5.0-9.0) 10/10/19 04:24 Ur Specific [place] 1.029 10/10/19 04:24 Urine Protein 30 mg/dL (NEGATIVE) H 10/10/19 04:24 Urine Glucose (UA) NEGATIVE mg/dL (NEGATIVE) 10/10/19 04:24 Urine Ketones NEGATIVE mg/dL (NEGATIVE) 10/10/19 04:24 Urine Blood MODERATE (NEGATIVE) H 10/10/19 04:24 Urine Nitrite NEGATIVE (NEGATIVE) 10/10/19 04:24 Urine Bilirubin NEGATIVE (NEGATIVE) 10/10/19 04:24 Urine Urobilinogen NEGATIVE mg/dL (<2.0) 10/10/19 04:24 Ur Leukocyte Esterase SMALL (NEGATIVE) H 10/10/19 04:24 Urine WBC (Auto) 28 /HPF 10/10/19 04:24 Urine RBC (Auto) 148 /HPF 10/10/19 04:24 Squamous Epi Cells Auto 1 /HPF 10/10/19 04:24 Urine Mucus (Auto) RARE /LPF 10/10/19 04:24 Urine Ascorbic Acid NEGATIVE (NEGATIVE) 10/10/19 04:24 10/10/19 05:55 Troponin I < 0.012 Impressions: Abdomen/Pelvis CT 10/10/19 08:02 IMPRESSION: NO SIGNIFICANT OR ACUTE PROCESS IN THE ABDOMEN OR PELVIS. Stroke Is this a Stroke Patient?: No Acute Heart Failure - Is this a Heart Failure Patient?: No
== END 2019-10-11 11:39 | disposition home or self-care (01) ==
LOC: ER 03:23 → EH 11:54 → INTOOBSV 11:54 → 4N 14:13
PROVIDERS: ADMIT Hospitalist; ATTEND Hospitalist
DX: R10.84 Generalized abdominal pain (principal); M79.7 Fibromyalgia; I10 Essential (primary) hypertension; E66.01 Morbid (severe) obesity due to excess calories; R11.2 Nausea with vomiting, unspecified; K59.00 Constipation, unspecified; K21.9 Gastro-esophageal reflux disease without esophagitis; F17.200 Nicotine dependence, unspecified, uncomplicated; N30.01 Acute cystitis with hematuria; M25.569 Pain in unspecified knee; G25.81 Restless legs syndrome; Z79.899 Other long term (current) drug therapy; Z90.49 Acquired absence of other specified parts of digestive tract; Z87.19 Personal history of other diseases of the digestive system; Z90.710 Acquired absence of both cervix and uterus; Z85.42 Personal history of malignant neoplasm of other parts of uterus; Z23 Encounter for immunization; Z98.890 Other specified postprocedural states
CPT/HCPCS: 93005; 99284; 96361; 96375; 96365; 36415 ×2; 87040; 82150; 83690 ×2; 83735; 84443; 85025 ×2; 80053 ×2; 81001; 84484; 83036; 74176; 90686; 93010; G0378 ×3; A9270 ×5; J2765 ×2; J2270; J1650; J1170; J2550; J0696; J2405; J7030 ×2; S0028 ×2

== ENCOUNTER 2019-10-16 15:40 | Emergency (ER) | payer MEDICARE, MEDICAID ==
[2019-10-16] MEDS ORDERED: LIDOCAINE 4%/TETRACAINE 0.5%/EPI 0.18% 5 ML TOPICAL SOLN TOP ONE (16:16)
[2019-10-16] MEDS ORDERED: HYDROMORPHONE HCL INJ/PF 2 MG/ML AMPULE IM ONE (16:17)
[2019-10-16] MEDS ORDERED: TETANUS/DIPHTHERIA TOX-ADULT 0.5 ML SYR (>=7YO) IM ONE (16:17)
[2019-10-16] MEDS ORDERED: ONDANSETRON 4 MG TAB.RAPDIS PO ONE (16:18)
--- NOTE | 2019-10-16 16:23 | ER Document Report ---
ED Extremity Problem, Lower - General Chief Complaint: Fall Stated Complaint: FALL Primary Care Provider: MATT MATHIAS DO [Primary Care Provider] - Follow up as needed TRAVEL OUTSIDE OF THE [place] IN LAST 30 DAYS: No - HPI Patient complains to provider of: Injury - to anterior bey. Location: Leg. No: Ankle, Back, Buttock, Foot, Hip, Knee, Thigh, Great Toe, 2nd Toe, 3rd Toe, 4th Toe, 5th Toe Occurred: Just prior to arrival Where: Home. No: Indoors, Neighbor's, Correction, Outdoors, Public place, School, Sports, Work, Other Onset/Duration: Sudden. denies: Gradual, Constant, Intermittent, Persistent, Waxing and waning, Better, Worse, Gone Quality of pain: Sharp. denies: No pain, Achy, Burning, Cramping, Dull, Fullness, Pressure, Stabbing, Throbbing, Other Severity: Mild Associated symptoms: denies: Chest pain, Chills, Dizzy, Fainting, Fever, Beckham a crack, Beckham a pop, Hurts to breath, Painful ambulation, Rapid heart rate, Seizure, Short of breath, Sweaty, Unable to bear weight, Weak, Other Relieved by: denies: Nothing, Elevation, Ice, Rest, Other - Related Data Allergies/Adverse Reactions: clindamycin Allergy (Verified 10/10/19 13:01) sulfamethoxazole [From Bactrim] Allergy (Verified 10/10/19 13:01) trimethoprim [From Bactrim] Allergy (Verified 10/10/19 13:01) vancomycin Allergy (Verified 10/10/19 13:01) Home Medications: BACLOFEN, LOSARTAN, LYRICA, OXYCODONE, PRAMIPEXOLE, TOPIRAMATE Past Medical History - Social History Smoking Status: Current Every Day Smoker Family History: Hypertension, Malignancy, Other - NE Patient has suicidal ideation: No Patient has homicidal ideation: No - Past Medical History Cardiac Medical History: Reports: Hx Congestive Heart Failure, Hx Hypertension Denies: Hx Coronary Artery Disease, Hx Heart Attack Pulmonary Medical History: Reports: Hx Bronchitis, Hx COPD - no home oxygen, Hx Pneumonia Denies: Hx Asthma, Hx Tuberculosis Neurological Medical History: Denies: Hx Cerebrovascular Accident, Hx Seizures Renal/ Medical History: Denies: Hx Peritoneal Dialysis GI Medical History: Reports: Hx Gastroesophageal Reflux Disease Musculoskeletal Medical History: Reports Hx Arthritis, Reports Hx Fibromyalgia Psychiatric Medical History: Reports: Hx Depression Past Surgical History: Reports: Hx Cholecystectomy, Hx Hysterectomy - complete due to CA, Hx Orthopedic Surgery - Bilateral feet screws. Denies: Hx Pacemaker - Immunizations Hx Diphtheria, Pertussis, Tetanus Vaccination: No Hx Pneumococcal Vaccination: 07/17/11 Review of Systems - Review of Systems Constitutional: denies: No symptoms reported, See HPI, Chills, Diaphoresis, Fever, Malaise, Weakness, Other, Weight gain, Weight loss, Recent illness Cardiovascular: denies: No symptoms reported, See HPI, Chest pain, Palpitations, Heart racing, Orthopnea, Dyspnea, Syncope, Dizziness, Lightheaded, Edema, Other, Paroxysmal Nocturnal Dysp Respiratory: denies: No symptoms reported, See HPI, Cough, Hurts to breathe, Hemoptysis, Short of breath, Sputum, Stridor, Wheezing, Other Gastrointestinal: denies: No symptoms reported, See HPI, Abdomen distended, Abdominal pain, Diarrhea, Nausea, Vomiting, Constipation, Blood streaked bowels, Poor appetite, Poor fluid intake, Blood in vomit, Black stools, Rectal bleeding, Last bowel movement, Fecal incontinence, Other Musculoskeletal: Leg swelling. denies: No symptoms reported, See HPI, Back pain, Gout, Joint pain, Joint swelling, Muscle pain, Muscle stiffness, Neck pain, Deformity, Ankle swelling, Other -: Yes All other systems reviewed and negative Physical Exam - Vital signs Vitals: Temp Pulse Resp BP Pulse Ox 98.2 F 98 20 176/73 H 98 10/16/19 15:57 10/16/19 15:57 10/16/19 15:57 10/16/19 15:57 10/16/19 15:57 Notes: PHYSICAL EXAMINATION: GENERAL: Well-appearing, well-nourished and in no acute distress. HEAD: Atraumatic, normocephalic. EYES: Pupils equal round and reactive to light, extraocular movements intact, sclera anicteric, conjunctiva are normal. ENT: nares patent, oropharynx clear without exudates. Moist mucous membranes. NECK: Normal range of motion, supple without lymphadenopathy LUNGS: Breath sounds clear to auscultation bilaterally and equal. No wheezes rales or rhonchi. HEART: Regular rate and rhythm without murmurs ABDOMEN: Soft, nontender, normoactive bowel sounds. No guarding, no rebound. No masses appreciated. EXTREMITIES: Normal range of motion, no pitting or edema. No cyanosis. r lower anterior bey, avulsion of tissue with round approx. 4 cm with missing tissue. no obvious deformities. NEUROLOGICAL: No focal neurological deficits. Moves all extremities spon taneously and on command. PSYCH: Normal mood, normal affect. SKIN: Warm, Dry, normal turgor, no rashes or lesions noted. Course - Vital Signs Vital signs: Temp Pulse Resp BP Pulse Ox 98.2 F 98 20 176/73 H 98 10/16/19 15:57 10/16/19 15:57 10/16/19 15:57 10/16/19 15:57 10/16/19 15:57 - Diagnostic Test Radiology reviewed: Image reviewed Radiology results interpreted by me: 10/16/19 16:29 AP and lateral of the right tib-fib tibia-fibula shows no fracture dislocation there is a soft tissue defect only. - Transfer of Care Notes: 10/16/19 17:33 Note right lower leg approximately 4 to 6 cm circular evulsion of skin with tissue that is devitalized at the edges was first prepped and draped sterilely 1% lidocaine with epinephrine used for anesthesia after first applying solution of lidocaine epinephrine and tetracaine. Then was irrigated copiously the skin devitalized skin was removed afterwards Xeroform gauze bacitracin 4 x 4 and Julien wrap applied explained to the patient and her this need to be changed twice a day and I suggested a recheck here in the emergency department in 2 days less than given with her primary doctor. We will send her home with some antibiotics she has pain medicine is in a pain management contract therefore we will only give her the shot I gave her here for pain. Discharge - Discharge Clinical Impression: Avulsion of skin of right lower leg Qualifiers: Encounter type: initial encounter Qualified Code(s): S81.801A - Unspecified open wound, right lower leg, initial encounter Condition: Good Disposition: HOME, SELF-CARE Instructions: [facility] ([facility]) Additional Instructions: Wash wound twice a day with soap and water ply Neosporin Xeroform and 4 x 4 and Julien wrap to the wound. Return in 2 days for recheck or sooner if fever over 101 pus drainage red streaks up the legs or signs of infection follow-up with your regular doctor or pain management doctor for further pain medicine we will send you home with Keflex for antibiotics. Prescriptions: Cephalexin Monohydrate [Keflex 500 mg Capsule] 500 mg PO Q6H 7 Days #28 capsule Referrals: MATT MATHIAS DO [Primary Care Provider] - Follow up as needed
--- NOTE | 2019-10-16 16:46 | RADIOLOGY REPORT (SQ) ---
EXAM DESCRIPTION: TIBIA FIBULA RIGHT COMPLETED DATE/TIME: 10/16/2019 4:24 pm REASON FOR STUDY: fall COMPARISON: None. NUMBER OF VIEWS: Two views. TECHNIQUE: Two radiographic images acquired of the right tibia and fibula to include the knee and an kle in at least one projection. LIMITATIONS: None. FINDINGS: MINERALIZATION: Decreased. BONES: No acute fracture. No suspicious osseous lesions. No dislocation. SOFT TISSUES: Soft tissue defect along the anterior distal lower leg. Scattered soft tissue calcific ation. No definitive radiopaque foreign body. OTHER: No other significant finding. IMPRESSION: No acute bony abnormality. Soft tissue defect along the anterior distal lower leg with scattered soft tissue calcifications. No definitive radiopaque foreign body. TECHNICAL DOCUMENTATION: JOB ID: [id number] [employer]- All Rights Reserved Reading location - IP/workstation name: [email or web address]
[2019-10-16] MEDS ORDERED: LIDOCAINE 1%/EPINEPHRINE INJ 20 ML VIAL INJ ONE (16:47)
[2019-10-16 18:47] VITALS: BP 170/72
== END 2019-10-16 18:47 | disposition home or self-care (01) ==
LOC: ER 15:40
PROC: 0HDKXZZ Extraction of Right Lower Leg Skin, External Approach (ICD-10-PCS; principal; 2019-10-16)
DX: S81.801A Unspecified open wound, right lower leg, initial encounter (principal); X58.XXXA Exposure to other specified factors, initial encounter; I50.9 Heart failure, unspecified; I11.0 Hypertensive heart disease with heart failure; J44.9 Chronic obstructive pulmonary disease, unspecified; F17.200 Nicotine dependence, unspecified, uncomplicated
CPT/HCPCS: 99283; 96372; 90471; 73590; 90714; 97597; 97598; A9270; J3490 ×2; J1170; S0119

== ENCOUNTER 2019-10-18 01:05 | Emergency (ER) | payer MEDICARE, MEDICAID ==
[2019-10-18 06:02] LABS: ABSOLUTE EOSINOPHILS # (AUTO) 0.2 10^3/uL (0.0-0.6); ABSOLUTE LYMPHOCYTES (AUTO) 1.5 10^3/uL (0.5-4.7); ABSOLUTE MONOCYTES (AUTO) 0.4 10^3/uL (0.1-1.4); ABSOLUTE NEUT (AUTO) 3.2 10^3/uL (1.7-8.2); BASOPHILS % (AUTO) 0.5 % (0-2); EOSINOPHILS % (AUTO) 3.6 % (0-6); HEMOGLOBIN 12.6 g/dL (12.0-15.5); MEAN CORPUSCULAR HEMOGLOBIN 25.6 pg (27.0-33.4); MEAN CORPUSCULAR HGB CONC 32.3 g/dL (32.0-36.0); MEAN CORPUSCULAR VOLUME 79 fl (80-97); MONOCYTES % (AUTO) 7.9 % (3-13); PLATELET COUNT 171 10^3/uL (150-450); RED BLOOD COUNT 4.93 10^6/uL (3.72-5.28); RED CELL DISTRIBUTION WIDTH 16.6 % (11.5-14.0); TOTAL CELLS COUNTED % (AUTO) 100 %; WHITE BLOOD COUNT 5.4 10^3/uL (4.0-10.5)
[2019-10-18] MEDS ORDERED: KETOROLAC TROMETHAMINE INJ/PF 30 MG/1 ML SDV IV ONE (06:36)
[2019-10-18] MEDS ORDERED: HYDROMORPHONE HCL INJ/PF 2 MG/ML AMPULE IV ONE (06:36)
[2019-10-18 06:46] LABS: ANION GAP 11 (5-19); BLOOD UREA NITROGEN 21 mg/dL (7-20); CALCIUM 9.4 mg/dL (8.4-10.2); CARBON DIOXIDE 25 mmol/L (22-30); CHLORIDE 105 mmol/L (98-107); GLUCOSE 101 mg/dL (75-110); POTASSIUM 3.7 mmol/L (3.6-5.0)
--- NOTE | 2019-10-18 06:52 | ER Document Report ---
Entered by LACIE CAGE SCRIBE 10/18/19 0614 Acting as scribe for:DIMPLE KING MD ED General - General Chief Complaint: Wound Infection Stated Complaint: RIGHT LEG INJURY Time Seen by Provider: 10/18/19 06:10 [facility] - Follow up as needed MATT MATHIAS DO [Primary Care Provider] - Follow up as needed Mode of Arrival: Ambulatory Information source: Patient Notes: This 58 year old female patient presents to the ED today with complaints of a deep skin tear on her RLE resulting from a cut that occurred x3 days ago. Patient states that she was trying to step around the wheel of her motorized wheelchair when she slipped and lost her footing, hitting her bey on the metal frame of her chair. Patient states that the pain is now a severe "burning sensation". Patient denies any other symptoms. TRAVEL OUTSIDE OF THE [place] IN LAST 30 DAYS: No - Related Data Allergies/Adverse Reactions: clindamycin Allergy (Verified 10/10/19 13:01) sulfamethoxazole [From Bactrim] Allergy (Verified 10/10/19 13:01) trimethoprim [From Bactrim] Allergy (Verified 10/10/19 13:01) vancomycin Allergy (Verified 10/10/19 13:01) Home Medications: lyrica, mirapex, busperione, losartan, omeprazole, mybertric, movantix, percocet, clonidine, bevespi inh, ventolin inhaler Past Medical History - General Information source: Patient - Social History Smoking Status: Current Every Day Smoker Cigarette use (# per day): Yes Chew tobacco use (# tins/day): No Smoking Education Provided: No Frequency of alcohol use: None Drug Abuse: None Lives with: Family Family History: Hypertension, Malignancy, Other - [place] Patient has suicidal ideation: No Patient has homicidal ideation: No - Past Medical History Cardiac Medical History: Reports: Hx Congestive Heart Failure, Hx Hypertension Pulmonary Medical History: Reports: Hx Bronchitis, Hx COPD - no home oxygen, Hx Pneumonia GI Medical History: Reports: Hx Gastroesophageal Reflux Disease Musculoskeletal Medical History: Reports Hx Arthritis, Reports Hx Fibromyalgia Psychiatric Medical History: Reports: Hx Depression Past Surgical History: Reports: Hx Cholecystectomy, Hx Hysterectomy - complete due to CA, Hx Orthopedic Surgery - Bilateral feet screws - Immunizations Hx Diphtheria, Pertussis, Tetanus Vaccination: No Hx Pneumococcal Vaccination: 07/17/11 Review of Systems - Review of Systems Constitutional: No symptoms reported EENT: No symptoms reported Cardiovascular: No symptoms reported Respiratory: No symptoms reported Gastrointestinal: No symptoms reported Genitourinary: No symptoms reported Female Genitourinary: No symptoms reported Musculoskeletal: See HPI, Other - Right leg burning pain Skin: See HPI, Other - Skin avulsion on right anterior lower extremity Hematologic/Lymphatic: No symptoms reported Neurological/Psychological: No symptoms reported -: Yes All other systems reviewed and negative Physical Exam - Vital signs Vitals: Temp Pulse BP Pulse Ox 98.0 F 103 H 149/89 H 98 10/18/19 01:10 10/18/19 01:10 10/18/19 01:10 10/18/19 01:10 - General General appearance: Alert, Other - Sleeping and snoring upon arrival, but easily aroused. Patient was crying and tearful during exam. - HEENT Head: Normocephalic, Atraumatic Eyes: Normal Pupils: PERRL - Respiratory Respiratory status: No respiratory distress Chest status: Nontender Breath sounds: Other - Coarse breath sounds Chest palpation: Normal - Cardiovascular Rhythm: Regular Heart sounds: Normal auscultation Murmur: No - Abdominal Inspection: Obese Distension: No distension Bowel sounds: Normal Tenderness: Nontender - Abdomen soft Organomegaly: No organomegaly - Back Back: Normal, Nontender - Extremities General upper extremity: Normal inspection General lower extremity: Other - 6x5 cm anterior right leg superficial skin avulsion. Avulsion looks good and has surrounding erythema that is chronic and is unchanged since onset. - Neurological Neuro grossly intact: Yes - Psychological Associated symptoms: Normal affect, Normal mood - Skin Skin Temperature: Warm Skin Moisture: Dry Skin Color: Normal Skin irregularity: other - 6x5 cm Superficial skin avulsion Location of irregularity: Extremities - Right anterior lower extremity Irregularity with: Other Course - Re-evaluation Re-evalutation: 10/18/19 06:[address] Mariscal to discuss the case, hoping to get her into the office and into wound care sooner than later before she develops a wound infection. He does not know if the office is open today and recommends holding patient here until 8 AM and then calling the office. Alternatively I could call the supervisor taping and found out what the OR schedule is this morning to discuss the case with 1 of the office-based surgeons. - Vital Signs Vital signs: Temp Pulse Resp BP Pulse Ox 98.0 F 103 H 149/89 H 98 10/18/19 01:10 10/18/19 01:10 10/18/19 01:10 10/18/19 01:10 - Laboratory Result Diagrams: 10/18/19 05:50 10/18/19 05:50 Laboratory results interpreted by me: 10/18/19 10/18/19 05:50 05:50 MCV 79 L MCH 25.6 L RDW 16.6 H BUN 21 H Discharge - Discharge Clinical Impression: Pain associated with wound Avulsion of skin of right lower leg Qualifiers: Encounter type: initial encounter Qualified Code(s): S81.801A - Unspecified open wound, right lower leg, initial encounter Condition: Stable Disposition: HOME, SELF-CARE Additional Instructions: Call [facility] at 8 AM this morning to schedule an appointment to be seen today for evaluation for the wound care clinic. Follow-up with your primary care provider today if you are unable to get into see the surgeons at [facility]. Referrals: [facility] [Provider Group] - 10/18/19 MATT MATHIAS DO [Primary Care Provider] - 10/18/19 Scribe Attestation: 10/18/19 06:55 I personally performed the services described in the documentation, reviewed and edited the documentation which was dictated to the scribe in my presence, and it accurately records my words and actions. I personally performed the services described in the documentation, reviewed and edited the documentation which was dictated to the scribe in my presence, and it accurately records my words and actions.
[2019-10-18 08:04] VITALS: BP 146/75
== END 2019-10-18 08:04 | disposition home or self-care (01) ==
LOC: ER 01:05
DX: S81.811A Laceration without foreign body, right lower leg, initial encounter (principal); W22.8XXA Striking against or struck by other objects, initial encounter; I10 Essential (primary) hypertension; J44.9 Chronic obstructive pulmonary disease, unspecified; Z79.899 Other long term (current) drug therapy; Z79.891 Long term (current) use of opiate analgesic; Z88.1 Allergy status to other antibiotic agents; F17.210 Nicotine dependence, cigarettes, uncomplicated
CPT/HCPCS: 99283; 96374; 96375; 36415; 85025; 80048; J1885; J1170

== ENCOUNTER 2019-11-02 18:28 | Emergency (ER) | payer MEDICAID, MEDICARE ==
[2019-11-02 18:37] VITALS: BP 154/93
[2019-11-02] MEDS ORDERED: LIDOCAINE 2% VISCOUS SOLN 15 ML UDCUP PO ONE (19:27)
[2019-11-02] MEDS ORDERED: HYDROMORPHONE HCL INJ/PF 2 MG/ML AMPULE IM ONE (19:27)
[2019-11-02] MEDS ORDERED: KETOROLAC TROMETHAMINE 60 MG/2 ML SDV IM ONE (19:28)
--- NOTE | 2019-11-02 19:33 | ER Document Report ---
HPI - HPI Time Seen by Provider: 11/02/19 18:41 Pain Level: 5 Notes: Patient is a 58-year-old female under the care of pain management for chronic pain as well as wound clinic for chronic right lower leg wound presents complaining of significant pain and not being able to sleep in the past few nights. She was evaluated today by her provider for her wound and he told her that it is healing well and has created a schedule for her with home health nursing. Patient states that she was unable to get any pain medicine from her pain doctor because she has been sick, and just wants some type of shot today to help with the pain for tonight. She otherwise has not had any drainage or any new redness/streaks from the wound. Patient states that it is a burning pain that she is dealing with constantly. This is not a new pain for her. Denies any headache, fever, neck pain, URI, sore throat, chest pain, palpitations, syncope, cough, shortness of breath, wheeze, dyspnea, abdominal pain, nausea/vomiting/diarrhea, urinary retention, dysuria, hematuria, loss of control of bowel or bladder, numbness/tingling, saddle anesthesia, muscle paralysis/weakness, or rash. - ROS Systems Reviewed and Negative: Yes All other systems reviewed and negative - REPRODUCTIVE Reproductive: DENIES: : Past Medical History - Social History Smoking Status: Current Every Day Smoker Family History: Hypertension, Malignancy, Other - [place] Patient has suicidal ideation: No Patient has homicidal ideation: No - Past Medical History Cardiac Medical History: Reports: Hx Congestive Heart Failure, Hx Hypertension Denies: Hx Coronary Artery Disease, Hx Heart Attack Pulmonary Medical History: Reports: Hx Bronchitis, Hx COPD - no home oxygen, Hx Pneumonia Denies: Hx Asthma, Hx Tuberculosis Neurological Medical History: Denies: Hx Cerebrovascular Accident, Hx Seizures Renal/ Medical History: Denies: Hx Peritoneal Dialysis GI Medical History: Reports: Hx Gastroesophageal Reflux Disease Musculoskeletal Medical History: Reports Hx Arthritis, Reports Hx Fibromyalgia Psychiatric Medical History: Reports: Hx Depression Past Surgical History: Reports: Hx Cholecystectomy, Hx Hysterectomy - complete due to CA, Hx Orthopedic Surgery - Bilateral feet screws. Denies: Hx Pacemaker - Immunizations Hx Diphtheria, Pertussis, Tetanus Vaccination: No Hx Pneumococcal Vaccination: 07/17/11 Vertical Provider Document - CONSTITUTIONAL Agree With Documented VS: Yes Notes: PHYSICAL EXAMINATION: GENERAL: Well-appearing, well-nourished and in no acute distress. LUNGS: Breath sounds clear to auscultation bilaterally and equal. No wheezes rales or rhonchi. HEART: Regular rate and rhythm without murmurs, rubs, gallops. Musculoskeletal: FROM to passive/active. Strength 5+/5. Extremities: No cyanosis, clubbing, or edema b/l. Peripheral pulses 2+. Capillary refill less than 3 seconds. NEUROLOGICAL: Cranial nerves grossly intact. Normal speech, normal gait. Normal sensory, motor exams PSYCH: Tearful/emotional SKIN: RLE: There is a superficial wound noted with no purulent discharge, erythema, induration, streaks, or fluctuance. - INFECTION CONTROL TRAVEL OUTSIDE OF THE [place] IN LAST 30 DAYS: No Course - Re-evaluation Re-evalutation: 11/02/19 19:31 Patient is an afebrile, well-hydrated, 58-year-old female who presents to the ED with chronic RLE wound/pain. Vitals are acceptable without any significant tachycardia, tachypnea, or hypoxia. PE is otherwise unremarkable for any neurovascular compromise, obvious tendon/ligament rupture, obvious fracture/dislocation, septic joint. Patient is nontoxic-appearing. Patient is able to ambulate and weight-bear. No other labs or imaging warranted at this time based on H&P. Pt was given a small dose of dilaudid IM and toradol IM as well as topical lidocaine today. Conservative measures otherwise for symptoms. Recheck with your PCM in 3-5 days. Keep wound clinic consult. F/u with pain management next week. Return to the ED with any worsening/concerning symptoms otherwise as reviewed in discharge. Patient is in agreement. - Vital Signs Vital signs: Temp Pulse Resp BP Pulse Ox 98.1 F 98 18 154/93 H 99 11/02/19 18:36 11/02/19 18:36 11/02/19 18:36 11/02/19 18:36 11/02/19 18:36 Discharge - Discharge Clinical Impression: Right leg pain Condition: Stable Disposition: HOME, SELF-CARE Additional Instructions: Keep the skin clean Wash with soap and water Tylenol/ibuprofen if needed Wound care as instructed by wound clinic Take medication as directed Monitor for any worsening symptoms Recheck with your PCM in 3-5 days Keep appointments with pain management and wound clinic Return to the ED with any worsening symptoms and/or development of fever, headache, chest pain, palpitations, syncope, shortness of breath, trouble breathing, abdominal pain, n/v/d, abscess, purulent discharge, red streaks, worsening swelling, or other worsening symptoms that are concerning to you. Forms: Elevated Blood Pressure, Smoking Cessation Education Referrals: GALI MENDEZ MD [Primary Care Provider] - Follow up as needed
== END 2019-11-02 20:11 | disposition home or self-care (01) ==
LOC: ER 18:28
DX: M79.604 Pain in right leg (principal); G89.29 Other chronic pain; F17.200 Nicotine dependence, unspecified, uncomplicated; I50.9 Heart failure, unspecified; I11.0 Hypertensive heart disease with heart failure; J44.9 Chronic obstructive pulmonary disease, unspecified
CPT/HCPCS: 99283; 96372; J1885; J3490; J1170

== ENCOUNTER → 2019-11-21 | Outpatient (CLI) | payer MEDICAID, MEDICARE ==
--- NOTE | 2019-11-22 15:46 | XCELERA REPORT ---
[address] [address] Lower Extremity Arterial Evaluation Name: DERECK PHELPS Age: 58 yrs Gender: Female : 1960 Patient Status: Outpatient Patient Location: Study Date: 11/21/2019 01:27 PM Procedure: A color flow and duplex scan of the lower extremity arteries was performed bilaterally with velocity and waveform anaylsis. Ankle brachial indicies performed. Reason For Study: CHRONIC ULCER Ordering Physician: GALI SIMON Performed By: Thomas Wallace Measurements and Calculations Right Left SUPPLIER QUALITY PSV 150.2 257.7 cm/sec Prox PFA PSV -106.9 110.0 cm/sec Prox SFA PSV 135.9 190.8 cm/sec Mid SFA PSV -145.4 -165.0cm/sec Dist SFA PSV -80.8 -144.9cm/sec Prox Pop A PSV 97.6 129.9 cm/sec Dist CARLTON PSV 64.4 75.0 cm/sec Dist PUBLIC HEALTH DIRECTOR PSV -118.8 90.4 cm/sec Mark Pedis PSV 61.8 71.2 cm/sec Right Side Arterial Evaluation Normal velocity and triphasic waveforms noted from the Common Femoral artery to the infrageniculate vessels . Biphasic with low velocity and retrograde flow in the Dorsalis Pedis . Ankle Brachial index 1.39. Left Side Arterial Evaluation Normal velocity and triphasic waveforms noted from the Common Femoral artery to the infrageniculate vessels . Ankle Brachial index 1.14. Interpretation Summary Mild hemodynamically significant lesions in the right lower extremity only, on duplex imaging, at rest. No hemodynamically significant lesions in the left lower extremity only, on duplex imaging, at rest. Duplex findings with distal disease on the right. KYLER's are in normal range, suggesting no significant arterial obstructive disease. : GALI SIMON > Gali Simon
== END ==
LOC: SP 12:40
PROVIDERS: ATTEND Surgery
DX: L97.212 Non-pressure chronic ulcer of right calf with fat layer exposed (principal)
CPT/HCPCS: 93922; 93925; 93970

== ENCOUNTER 2020-02-02 17:28 | Emergency (ER) | payer MEDICARE, MEDICAID ==
[2020-02-02 18:13] VITALS: BP 137/68
[2020-02-02 18:19] LABS: ABSOLUTE EOSINOPHILS # (AUTO) 0.2 10^3/uL (0.0-0.6); ABSOLUTE LYMPHOCYTES (AUTO) 1.1 10^3/uL (0.5-4.7); ABSOLUTE MONOCYTES (AUTO) 0.4 10^3/uL (0.1-1.4); ABSOLUTE NEUT (AUTO) 3.7 10^3/uL (1.7-8.2); BASOPHILS % (AUTO) 0.2 % (0-2); EOSINOPHILS % (AUTO) 3.9 % (0-6); HEMATOCRIT 37.1 % (36.0-47.0); HEMOGLOBIN 12.3 g/dL (12.0-15.5); MEAN CORPUSCULAR HEMOGLOBIN 26.5 pg (27.0-33.4); MEAN CORPUSCULAR VOLUME 80 fl (80-97); MONOCYTES % (AUTO) 6.5 % (3-13); PLATELET COUNT 176 10^3/uL (150-450); RED BLOOD COUNT 4.63 10^6/uL (3.72-5.28); RED CELL DISTRIBUTION WIDTH 16.9 % (11.5-14.0); SEGMENTED NEUTROPHILS % (AUTO) 69.4 % (42-78); TOTAL CELLS COUNTED % (AUTO) 100 %; WHITE BLOOD COUNT 5.4 10^3/uL (4.0-10.5)
[2020-02-02 18:38] LABS: ALBUMIN 3.7 g/dL (3.5-5.0); ALKALINE PHOSPHATASE 93 U/L (38-126); ASPARTATE AMINO TRANSFERASE 19 U/L (14-36); BILIRUBIN,TOTAL 0.2 mg/dL (0.2-1.3); BLOOD UREA NITROGEN 11 mg/dL (7-20); CREATINE KINASE 32 U/L (30-135); GLUCOSE 121 mg/dL (75-110); POTASSIUM 4.4 mmol/L (3.6-5.0); TOTAL PROTEIN 6.6 g/dL (6.3-8.2)
[2020-02-02 18:43] LABS: CARBON DIOXIDE 26 mmol/L (22-30); CHLORIDE 108 mmol/L (98-107)
[2020-02-02 18:44] LABS: ANION GAP 5 (5-19)
[2020-02-02 18:46] LABS: A TYPE INFLUENZA AG POSITIVE (NEGATIVE); B INFLUENZA AG NEGATIVE (NEGATIVE)
[2020-02-02 18:49] LABS: CREATINE KINASE MB 0.48 ng/mL (<4.55)
[2020-02-02 18:51] LABS: TROPONIN I < 0.012 ng/mL
--- NOTE | 2020-02-02 18:58 | RADIOLOGY REPORT (SQ) ---
EXAM DESCRIPTION: CHEST SINGLE VIEW IMAGES COMPLETED DATE/TIME: 02/02/2020 5:14 pm REASON FOR STUDY: Chest Pain COMPARISON: None. EXAM PARAMETERS: NUMBER OF VIEWS: One view. TECHNIQUE: Single frontal radiographic view of the chest acquired. RADIATION DOSE: NA LIMITATIONS: None. FINDINGS: LUNGS AND PLEURA: No opacities, masses or pneumothorax. No pleural effusion. MEDIASTINUM AND HILAR STRUCTURES: No masses. Contour normal. HEART AND VASCULAR STRUCTURES: Heart normal in size. Normal vasculature. BONES: No acute findings. HARDWARE: None in the chest. OTHER: No other significant finding. IMPRESSION: NO ACUTE RADIOGRAPHIC FINDING IN THE CHEST. TECHNICAL DOCUMENTATION: JOB ID: [id number] 2010 [employer]- All Rights Reserved Reading location - IP/workstation name: [email or web address]
[2020-02-02] MEDS ORDERED: IPRATROPIUM/ALBUTEROL 0.5-2.5 MG/3 ML AMPUL NEB ONE (19:10)
[2020-02-02] MEDS ORDERED: KETOROLAC TROMETHAMINE INJ/PF 30 MG/1 ML SDV IV ONE (19:10)
[2020-02-02] MEDS ORDERED: OSELTAMIVIR PHOSPHATE 75 MG CAPSULE PO ONE (19:11)
--- NOTE | 2020-02-02 19:28 | ER Document Report ---
ED Respiratory Problem - General Chief Complaint: Chest Pain Stated Complaint: COUGH,SHORT OF BREATH Time Seen by Provider: 02/02/20 19:00 Primary Care Provider: MATT MATHIAS DO [Primary Care Provider] - Follow up as needed Notes: CHIEF COMPLAINT: Cough for 3 to 4 days with body ache HPI: 59-year-old female presenting to the emergency department complaining of cough for 3 to 4 days with generalized body ache, no definitive fever at home but has had some chills. Denies nausea vomiting. Patient denies recent travel. 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 No other family members have been sick recently. ROS: See HPI - all other systems were reviewed and are otherwise negative Constitutional: + fever Eyes: no drainage, no blurred vision ENT: no runny nose, no sore throat Cardiovascular: no chest pain Resp: + SOB, + cough GI: no vomiting, no diarrhea, no abdominal pain : no dysuria Integumentary: no rash Allergy: no hives Musculoskeletal: + Chronic extremity pain or swelling Neurological: no numbness/tingling, no weakness MEDICATIONS: I agree with the patient medications as charted by the RN. ALLERGIES: I agree with the allergies as charted by the RN. PAST MEDICAL HISTORY/PAST SURGICAL HISTORY: Reviewed and agree as charted by RN. SOCIAL HISTORY: Reviewed and agree as charted by RN. FAMILY HISTORY: No significant familial comorbid conditions directly related to patient complaint EXAM: Reviewed vital signs as charted by RN. CONSTITUTIONAL: Alert and oriented and responds appropriately to questions. Well-appearing; well-nourished HEAD: Normocephalic; atraumatic EYES: PERRL; Conjunctivae clear, sclerae non-icteric ENT: normal nose; no rhinorrhea; moist mucous membranes; pharynx without lesions noted, no uvula edema or deviation, no tonsillar hypertrophy, phonation normal NECK: Supple without meningismus; non-tender; no cervical lymphadenopathy, no masses CARD: RRR; no murmurs, no clicks, no rubs, no gallops; symmetric distal pulses RESP: Normal chest excursion without splinting or tachypnea; breath sounds decreased bilaterally with expiratory wheezing, no rhonchi, no rales, pulse oximetry 96% on room air not hypoxic ABD/GI: Normal bowel sounds; non-distended; soft, non-tender, no rebound, no guarding; no palpable organomegaly or masses. BACK: The back appears normal and is non-tender to palpation, there is no CVA tenderness EXT: Normal ROM in all joints; non-tender to palpation; no cyanosis, no effusions, no edema SKIN: Normal color for age and race; warm; dry; good turgor; chronic left leg lymphadematous changes NEURO: Moves all extremities equally; Motor and sensory function intact PSYCH: The patient's mood and manner are appropriate. Grooming and personal hygiene are appropriate. MDM: 59-year-old female presenting with cough body aches and subjective fevers at home. Chest x-ray does not show evidence of pneumonia. She does not have a recent COVID exposure or risk factor. Patient is positive for influenza A. She is a smoker with COPD history does have albuterol inhalers at home. Will give T oradol for body ache in the emergency department will give breathing treatment as patient is wheezing. Patient requests Tamiflu. We did discuss side effects. Plan to discharge home to follow-up with her PCP TRAVEL OUTSIDE OF THE [place] IN LAST 30 DAYS: No - Related Data Allergies/Adverse Reactions: clindamycin Allergy (Verified 02/02/20 18:01) sulfamethoxazole [From Bactrim] Allergy (Verified 02/02/20 18:01) trimethoprim [From Bactrim] Allergy (Verified 02/02/20 18:01) vancomycin Allergy (Verified 02/02/20 18:01) Past Medical History - Social History Smoking Status: Former Smoker Chew tobacco use (# tins/day): No Frequency of alcohol use: Rare Family History: Hypertension, Malignancy, Other - [place] Patient has suicidal ideation: No Patient has homicidal ideation: No - Past Medical History Cardiac Medical History: Reports: Hx Congestive Heart Failure, Hx Hypertension Denies: Hx Coronary Artery Disease, Hx Heart Attack Pulmonary Medical History: Reports: Hx Bronchitis, Hx COPD - no home oxygen, Hx Pneumonia Denies: Hx Asthma, Hx Tuberculosis Neurological Medical History: Denies: Hx Cerebrovascular Accident, Hx Seizures Renal/ Medical History: Denies: Hx Peritoneal Dialysis GI Medical History: Reports: Hx Gastroesophageal Reflux Disease Musculoskeletal Medical History: Reports Hx Arthritis, Reports Hx Fibromyalgia Psychiatric Medical History: Reports: Hx Depression Past Surgical History: Reports: Hx Cholecystectomy, Hx Hysterectomy - complete due to CA, Hx Orthopedic Surgery - Bilateral feet screws. Denies: Hx Pacemaker - Immunizations Hx Diphtheria, Pertussis, Tetanus Vaccination: No Hx Pneumococcal Vaccination: 07/17/11 Physical Exam - Vital signs Vitals: Pulse Ox 99 02/02/20 17:31 Course - Vital Signs Vital signs: Temp Pulse Resp BP Pulse Ox 98.7 F 22 H 137/68 H 99 02/02/20 18:01 02/02/20 18:01 02/02/20 18:01 02/02/20 18:01 - Laboratory Result Diagrams: 02/02/20 17:55 02/02/20 17:55 Laboratory results interpreted by me: 02/02/20 02/02/20 17:55 17:55 MCH 26.5 L RDW 16.9 H Chloride 108 H Glucose 121 H Discharge - Discharge Clinical Impression: Cough due to bronchospasm, Tobacco use, Influenza A Condition: Stable Disposition: HOME, SELF-CARE Additional Instructions: 1. hydrate well at home with juices and water 2. treat fevers and body aches with diclofenac and Tylenol 3. out of work for the next 2 days 4. follow up recheck with your PCP in 2-3 days, call for appt. 5. return to the ED for worsening condition 6. Continue to use your albuterol inhaler 2 puffs every 4 hours for wheezing or shortness of breath. Stop smoking 7. You were positive for influenza A today make sure you isolate yourself from family members Prescriptions: Albuterol Sulfate [Proair HFA Inhalation Aerosol 8.5 gm MDI] 2 puff IH Q4H PRN #1 mdi PRN Reason: Oseltamivir Phosphate [Tamiflu 75 mg Capsule] 75 mg PO BID #10 capsule Diclofenac Sodium [Voltaren 50 Mg Tablet.] 50 mg PO BID #20 tablet. Referrals: MATT MATHIAS DO [Primary Care Provider] - Follow up as needed
--- NOTE | 2020-02-02 20:44 | EKG REPORT ---
SEVERITY:- ABNORMAL ECG - SINUS RHYTHM PROBABLE INFERIOR INFARCT, OLD : Confirmed by: Layo Maloney MD 02-Feb-2020 20:43:55
== END 2020-02-02 19:41 | disposition home or self-care (01) ==
LOC: ER 17:28
DX: J10.1 Influenza due to other identified influenza virus with other respiratory manifestations (principal); J44.9 Chronic obstructive pulmonary disease, unspecified; J98.01 Acute bronchospasm; R05 Cough; Z79.899 Other long term (current) drug therapy; Z88.1 Allergy status to other antibiotic agents; I10 Essential (primary) hypertension
CPT/HCPCS: 93005; 94640; 99285; 96374; 36415; 87070; 82553; 87880; 82550; 85025; 80053; 84484; 87804; 71045; 93010; J1885; A9270 ×2; J3490; J7620

== ENCOUNTER 2020-03-30 18:25 | Emergency (ER) | payer MEDICARE, MEDICAID ==
--- NOTE | 2020-03-30 18:58 | ER Document Report ---
ED Medical Screen (RME) - General Chief Complaint: Leg Pain Stated Complaint: LEFT LEG PAIN Time Seen by Provider: 03/30/20 18:55 Primary Care Provider: MATT MATHIAS DO [Primary Care Provider] - Follow up as needed Mode of Arrival: Wheelchair Information source: Patient Notes: 59-year-old female presented to ED for complaint of chronic and chronic low back pain. She states for the last 3 days she has had a severe pain that goes from her groin and it goes all the way down to her foot and she cannot move her leg the pain is so bad. She states she can barely walk already because she has chronic knee pain she has [id number]. She states she has chronic peripheral vascular disease. She is on chronic pain management with integrated pain management. She states this pain is different than what she is normally gets. She states she does smoke 1/2 pack a day does not drink or do any illicit drugs. She is here today for this excruciating pain that goes down from her groin to her foot. She was concerned that she had a blood clot in her leg. I have greeted and performed a rapid initial assessment of this patient. A comprehensive ED assessment and evaluation of the patient, analysis of test results and completion of medical decision making process will be conducted by an additional ED providers. TRAVEL OUTSIDE OF THE [place] IN LAST 30 DAYS: No - Related Data Allergies/Adverse Reactions: clindamycin Allergy (Verified 03/30/20 18:55) sulfamethoxazole [From Bactrim] Allergy (Verified 03/30/20 18:55) trimethoprim [From Bactrim] Allergy (Verified 03/30/20 18:55) vancomycin Allergy (Verified 03/30/20 18:55) Past Medical History - Past Medical History Cardiac Medical History: Reports: Hx Congestive Heart Failure, Hx Hypertension Denies: Hx Coronary Artery Disease, Hx Heart Attack Pulmonary Medical History: Reports: Hx Bronchitis, Hx COPD - no home oxygen, Hx Pneumonia Denies: Hx Asthma, Hx Tuberculosis Neurological Medical History: Denies: Hx Cerebrovascular Accident, Hx Seizures Renal/ Medical History: Denies: Hx Peritoneal Dialysis GI Medical History: Reports: Hx Gastroesophageal Reflux Disease Musculoskeltal Medical History: Reports Hx Arthritis, Reports Hx Fibromyalgia Psychiatric Medical History: Reports: Hx Depression Past Surgical History: Reports: Hx Cholecystectomy, Hx Hysterectomy - complete due to CA, Hx Orthopedic Surgery - Bilateral feet screws. Denies: Hx Pacemaker - Immunizations Hx Diphtheria, Pertussis, Tetanus Vaccination: No Physical Exam - Vital signs Vitals: Temp Pulse Resp BP Pulse Ox 98.7 F 82 18 148/72 H 96 03/30/20 18:31 03/30/20 18:31 03/30/20 18:31 03/30/20 18:31 03/30/20 18:31 Course - Vital Signs Vital signs: Temp Pulse Resp BP Pulse Ox 98.7 F 82 18 148/72 H 96 03/30/20 18:49 03/30/20 18:31 03/30/20 18:31 03/30/20 18:31 03/30/20 18:31 Doctor's Discharge - Discharge Referrals: MATT MATHIAS DO [Primary Care Provider] - Follow up as needed
[2020-03-30 19:58] LABS: APPEARANCE,URINE SLIGHTLY-CLOUDY; BILIRUBIN,URINE NEGATIVE (NEGATIVE); COLOR,URINE YELLOW; GLUCOSE, URINE NEGATIVE (NEGATIVE); KETONES,URINE NEGATIVE (NEGATIVE); LEUKOCYTE ESTERASE,URINE NEGATIVE (NEGATIVE); NITRITE,URINE NEGATIVE (NEGATIVE); PROTEIN,URINE NEGATIVE (NEGATIVE); URINE SPECIFIC GRAVITY 1.017; UROBILINOGEN,URINE NEGATIVE mg/dL (<2.0)
[2020-03-30 20:38] LABS: INTERNATIONAL RATION (INR) 0.97; PROTHROMBIN TIME 12.9 SEC (11.4-15.4)
[2020-03-30 20:39] LABS: ABSOLUTE EOSINOPHILS # (AUTO) 0.3 10^3/uL (0.0-0.6); ABSOLUTE LYMPHOCYTES (AUTO) 1.5 10^3/uL (0.5-4.7); ABSOLUTE MONOCYTES (AUTO) 0.4 10^3/uL (0.1-1.4); ABSOLUTE NEUT (AUTO) 4.9 10^3/uL (1.7-8.2); BASOPHILS % (AUTO) 0.2 % (0-2); EOSINOPHILS % (AUTO) 3.9 % (0-6); HEMATOCRIT 40.1 % (36.0-47.0); HEMOGLOBIN 12.9 g/dL (12.0-15.5); LYMPHOCYTES % (AUTO) 20.7 % (13-45); MEAN CORPUSCULAR HEMOGLOBIN 26.2 pg (27.0-33.4); MEAN CORPUSCULAR HGB CONC 32.1 g/dL (32.0-36.0); MEAN CORPUSCULAR VOLUME 82 fl (80-97); PARTIAL THROMBOPLASTIN TIME 31.2 SEC (23.5-35.8); PLATELET COUNT 210 10^3/uL (150-450); RED BLOOD COUNT 4.91 10^6/uL (3.72-5.28); RED CELL DISTRIBUTION WIDTH 16.3 % (11.5-14.0); SEGMENTED NEUTROPHILS % (AUTO) 69.2 % (42-78); TOTAL CELLS COUNTED % (AUTO) 100 %
[2020-03-30 21:04] LABS: ALKALINE PHOSPHATASE 111 U/L (38-126); ANION GAP 8 (5-19); ASPARTATE AMINO TRANSFERASE 23 U/L (14-36); BILIRUBIN,TOTAL 0.4 mg/dL (0.2-1.3); BLOOD UREA NITROGEN 11 mg/dL (7-20); CALCIUM 9.8 mg/dL (8.4-10.2); CARBON DIOXIDE 23 mmol/L (22-30); CHLORIDE 107 mmol/L (98-107); GLUCOSE 99 mg/dL (75-110); POTASSIUM 4.3 mmol/L (3.6-5.0); TOTAL PROTEIN 7.2 g/dL (6.3-8.2)
[2020-03-30] MEDS ORDERED: OXYCODONE-ACETAMINOPHEN 5-325 MG TABLET PO ONE (22:38)
[2020-03-30] MEDS ORDERED: KETOROLAC TROMETHAMINE 60 MG/2 ML SDV IM ONE (23:42)
--- NOTE | 2020-03-30 23:47 | ER Document Report ---
Entered by LACIE CAGE SCRIBE 03/30/20 [id number] Acting as scribe for:KELLEN LIN IV, MD ED Extremity Problem, Lower - General Chief Complaint: Leg Pain Stated Complaint: LEFT LEG PAIN Time Seen by Provider: 03/30/20 18:55 Primary Care Provider: MATT MATHIAS DO [Primary Care Provider] - Follow up as needed Mode of Arrival: Wheelchair Information source: Patient Notes: This 59 year old female patient with a history of chronic pain, PVD, RLS, DDD, and sciatica presents to the ED today with complaints of LLE pain for the past x3-4 days. Patient states that the pain is sharp and shooting in nature and now radiates from her groin down to her foot. She reports that she has a history of DVT in her arm and is concerned that she may have one in her leg. She notes that she takes Percocet-10 for chronic pain and that she took x1 tablet prior to arrival. TRAVEL OUTSIDE OF THE [place] IN LAST 30 DAYS: No - Related Data Allergies/Adverse Reactions: clindamycin Allergy (Verified 03/30/20 18:55) sulfamethoxazole [From Bactrim] Allergy (Verified 03/30/20 18:55) trimethoprim [From Bactrim] Allergy (Verified 03/30/20 18:55) vancomycin Allergy (Verified 03/30/20 18:55) Past Medical History - General Information source: Patient - Social History Smoking Status: Current Every Day Smoker Cigarette use (# per day): Yes - 0.5 ppd Chew tobacco use (# tins/day): No Smoking Education Provided: No Frequency of alcohol use: None Drug Abuse: None Family History: Reviewed & Not Pertinent, Hypertension, Malignancy, Other - [place] Patient has suicidal ideation: No Patient has homicidal ideation: No - Past Medical History Cardiac Medical History: Reports: Hx Congestive Heart Failure, Hx DVT, Hx Hypertension, Hx Peripheral Vascular Disease Pulmonary Medical History: Reports: Hx Bronchitis, Hx COPD - no home oxygen, Hx Pneumonia GI Medical History: Reports: Hx Gastroesophageal Reflux Disease Musculoskeletal Medical History: Reports Hx Arthritis, Reports Hx Fibromyalgia, Reports Hx Restless Leg Syndrome Psychiatric Medical History: Reports: Hx Depression Past Surgical History: Reports: Hx Cholecystectomy, Hx Hysterectomy - complete due to CA, Hx Orthopedic Surgery - Bilateral feet screws - Immunizations Hx Diphtheria, Pertussis, Tetanus Vaccination: No Hx Pneumococcal Vaccination: 07/17/11 Review of Systems - Review of Systems Constitutional: No symptoms reported EENT: No symptoms reported Cardiovascular: No symptoms reported Respiratory: No symptoms reported Gastrointestinal: No symptoms reported Genitourinary: No symptoms reported Female Genitourinary: No symptoms reported Musculoskeletal: See HPI, Other - Leg pain Skin: No symptoms reported Hematologic/Lymphatic: No symptoms reported Neurological/Psychological: No symptoms reported -: Yes All other systems reviewed and negative Physical Exam - Vital signs Vitals: Temp Pulse Resp BP Pulse Ox 98.7 F 82 18 148/72 H 96 03/30/20 18:31 03/30/20 18:31 03/30/20 18:31 03/30/20 18:31 03/30/20 18:31 Interpretation: Hypertensive - General General appearance: Alert In distress: None - HEENT Head: Normocephalic, Atraumatic Eyes: Normal Pupils: PERRL - Respiratory Respiratory status: No respiratory distress Chest status: Nontender Breath sounds: Normal Chest palpation: Normal - Cardiovascular Rhythm: Regular Heart sounds: Normal auscultation Murmur: No Friction rub: No Gallop: None auscultated - Abdominal Inspection: Normal Distension: No distension Bowel sounds: Normal Tenderness: Nontender - Abdomen soft Organomegaly: No organomegaly - Back Back: Normal, Nontender - Extremities General upper extremity: Normal inspection General lower extremity: Other - Legs are equal in size - Neurological Neuro grossly intact: Yes Orientation: AAOx4 - Psychological Associated symptoms: Normal affect, Normal mood - Skin Skin irregularity: Erythema - Mild erythema noted to anterior lower legs bilaterally, appearance which is consistent with chronic stasis dermatitis, other - Desquamation to anterior lower legs bilateally Course - Re-evaluation Re-evalutation: 03/30/20 23:42 Preliminary results of lower extremity Doppler ultrasound negative for DVT. Patient was informed of these findings. Other results of ED MSE discussed with patient. All questions were answered prior to discharge. Patient states that sometimes using Toradol in addition to the Percocet 10/325 tablets she is prescribed is helpful for her sciatic nerve and chronic leg pain. This MD agreed to give the patient a dose of Toradol here and write the patient for some Toradol tablets. Emergency signs and symptoms, reasons to return to the emergency department discussed with patient. - Vital Signs Vital signs: Temp Pulse Resp BP Pulse Ox 97.9 F 79 20 151/85 H 99 03/30/20 23:58 03/30/20 23:58 03/30/20 23:58 03/30/20 23:58 03/30/20 23:58 - Laboratory Result Diagrams: 03/30/20 20:00 03/30/20 20:00 Laboratory results interpreted by me: 03/30/20 20:00 MCH 26.2 L RDW 16.3 H Discharge - Discharge Clinical Impression: Chronic leg pain Qualifiers: Laterality: left Qualified Code(s): M79.605 - Pain in left leg; G89.29 - Other chronic pain Condition: Good Disposition: HOME, SELF-CARE Additional Instructions: Return to the Emergency Department without delay if any worse. HOME CARE INSTRUCTIONS & INFORMATION: Thank you for choosing us for your medical needs. We hope you're satisfied with the care you received. After you leave, you must properly care for your problem and, at the same time, observe its progress. Any condition can change. Some illnesses can change rapidly over hours or days. If your condition worsens, return to the Emergency Department or see your physician promptly. ABOUT YOUR X-RAYS AND EKG'S: If you had an EKG or X-rays taken, they have been read by the Emergency Physician. The X-rays and EKG's will also be read by a Radiologist or Journeyman Pipefitter within 24 hours. If discrepancies are noted, you will be notified by telephone. Please be certain the ED has a correct telephone number & address where you can be reached. Also, realize that some fractures or abnormalities do not show up on initial X-rays. If your symptoms continue, see your physician. ABOUT YOUR LABORATORY TEST: If you had laboratory tests, the results have been reviewed by the Emergency Physician. Some test results (for example cultures) may not be available for several days. You will be contacted if any test result shows you need additional treatment. Please be certain the ED has a correct telephone number and address where you can be reached. ABOUT YOUR MEDICATIONS: You will receive instructions on how to take your medicine on the prescription label you receive. Additional information may be provided by the Pharmacy. If you have questions afterwards, call the ED for clarification or further instructions. Some prescribed medications may cause drowsiness. Do not perform tasks such as driving a car or operating machinery without consulting your Pharmacist. If you feel you need a refill of pain medi cation, your condition will need re-evaluation. Please do not call for a refill of any medication. ABOUT YOUR SIGNATURE: Signature of this document acknowledges to followin. Understanding that you received emergency treatment and that you may be released before al medical problems are known or treated. Please be certain the ED has a correct phone number & address where you can be reached. 2. Acknowledgement that you will arrange for follow-up care as recommended. 3. Authorization for the Emergency Physician to provide information to your follow-up Physician in order to maximize your care. AT ANY TIME, IF YOUR SYMPTOMS CHANGE SIGNIFICANTLY OR WORSEN OR YOU DEVELOP NEW SYMPTOMS, RETURN TO THE EMERGENCY DEPARTMENT IMMEDIATELY FOR RE-EVALUATION. OUR GOAL IS TO PROVIDE EXCELLENT MEDICAL CARE! WE HOPE THAT WE HAVE MET YOUR EXPECTATIONS DURING YOUR EMERGENCY DEPARTMENT VISIT AND THAT YOU FEEL YOU HAVE RECEIVED EXCELLENT CARE! Sciatica Your symptoms suggest "sciatica." The pain of sciatica typically radiates down the leg. Numbness in the foot or calf may also occur. Sciatica is caused by irritation of the sciatic nerve or its branches. The irritation can be due to a herniated disk in the spine, swelling and inflammation in the muscles surrounding the sciatic nerve, or direct injury of the nerve itself. Most cases of sciatica will resolve with medical treatment. Bed rest is usually recommended initially. Surgery is only necessary when the condition will not improve with rest and antiinflammatory medication. Muscle relaxers are often given if muscle soreness is present. A CAT scan of the back may be performed if a herniated disk is suspected. Re-examination is necessary if you develop increasing numbness, localized weakness in the foot or ankle, or if the pain does not respond to rest. Prescriptions: Ketorolac Tromethamine [Toradol 10 mg Tablet] 10 mg PO Q6HP PRN #15 tablet PRN Reason: pain Referrals: MATT MATHIAS DO [Primary Care Provider] - Follow up as needed I personally performed the services described in the documentation, reviewed and edited the documentation which was dictated to the scribe in my presence, and it accurately records my words and actions.
--- NOTE | 2020-03-30 23:53 | RADIOLOGY REPORT (SQ) ---
CLINICAL HISTORY: Left lower leg pain starts in the groin goes down COMPARISON: None. TECHNIQUE: US EXTREMITY VEINS UNILATERAL 03/30/2020 6:55 PM CDT FINDINGS: Left common femoral, femoral and popliteal veins are normally compressible with patent flow and augmentation. Visualized calf veins are patent. IMPRESSION: No DVT.
[2020-03-31] VITALS: BP 151/85
== END 2020-03-31 | disposition home or self-care (01) ==
LOC: ER 18:25
DX: M79.605 Pain in left leg (principal); G89.29 Other chronic pain; Z79.891 Long term (current) use of opiate analgesic; L53.9 Erythematous condition, unspecified; R23.4 Changes in skin texture; F17.210 Nicotine dependence, cigarettes, uncomplicated; I10 Essential (primary) hypertension; Z86.718 Personal history of other venous thrombosis and embolism; Z88.1 Allergy status to other antibiotic agents
CPT/HCPCS: 99284; 96372; 36415; 85025; 85610; 85730; 80053; 81001; 93971; J1885; A9270

== ENCOUNTER 2020-04-18 18:29 | Emergency (ER) | payer MEDICARE, MEDICAID ==
[2020-04-18] MEDS ORDERED: NORMAL SALINE 1000 ML 1,000 ML IV ONE (19:39)
[2020-04-18] MEDS ORDERED: ONDANSETRON HCL INJ/PF 4 MG/2 ML SDV IV ONE (19:39)
--- NOTE | 2020-04-18 19:46 | ER Document Report ---
ED Medical Screen (RME) - General Chief Complaint: abdomen Stated Complaint: ABDOMINAL PAIN/POSSIBLE OPIOD WITHDRAWL Time Seen by Provider: 04/18/20 19:35 Primary Care Provider: MATT MATHIAS DO [Primary Care Provider] - Follow up as needed Information source: Patient TRAVEL OUTSIDE OF THE [place] IN LAST 30 DAYS: No - HPI Notes: 04/18/20 19:41 59-year-old female with a history of hypertension, COPD presents emergency room for complaints of nausea vomiting and diarrhea with abdominal pain x1 day with complaints of shortness of breath, denies any chest pain patient states she has been. A patient reports that she has been around COVID positive patient. Worse with time, nothing is making better. Patient is an active smoker. I have greeted and performed a rapid initial assessment of this patient. A comprehensive ED assessment and evaluation of the patient, analysis of test results and completion of the medical decision making process will be conducted by additional ED providers. PHYSICAL EXAMINATION: GENERAL: Well-appearing, well-nourished and in no acute distress. HEAD: Atraumatic, normocephalic. CV: s1, s2 regular LUNGS: No respiratory distress - Related Data Allergies/Adverse Reactions: clindamycin Allergy (Verified 04/18/20 19:34) sulfamethoxazole [From Bactrim] Allergy (Verified 04/18/20 19:34) trimethoprim [From Bactrim] Allergy (Verified 04/18/20 19:34) vancomycin Allergy (Verified 04/18/20 19:34) Past Medical History - Social History Frequency of alcohol use: None Drug Abuse: None - Past Medical History Cardiac Medical History: Reports: Hx Congestive Heart Failure, Hx DVT, Hx Hypertension, Hx Peripheral Vascular Disease Denies: Hx Coronary Artery Disease, Hx Heart Attack Pulmonary Medical History: Reports: Hx Bronchitis, Hx COPD - no home oxygen, Hx Pneumonia Denies: Hx Asthma, Hx Tuberculosis Neurological Medical History: Denies: Hx Cerebrovascular Accident, Hx Seizures Renal/ Medical History: Denies: Hx Peritoneal Dialysis GI Medical History: Reports: Hx Gastroesophageal Reflux Disease Musculoskeltal Medical History: Reports Hx Arthritis, Reports Hx Fibromyalgia Psychiatric Medical History: Reports: Hx Depression Past Surgical History: Reports: Hx Cholecystectomy, Hx Hysterectomy - complete due to CA, Hx Orthopedic Surgery - Bilateral feet screws. Denies: Hx Pacemaker - Immunizations Hx Diphtheria, Pertussis, Tetanus Vaccination: No Physical Exam - Vital signs Vitals: Temp Pulse Resp BP Pulse Ox 98.3 F 93 16 149/86 H 97 04/18/20 18:48 04/18/20 18:48 04/18/20 18:48 04/18/20 18:48 04/18/20 18:48 Course - Vital Signs Vital signs: Temp Pulse Resp BP Pulse Ox 98.3 F 93 16 149/86 H 97 04/18/20 19:34 04/18/20 18:48 04/18/20 18:48 04/18/20 18:48 04/18/20 18:48 Doctor's Discharge - Discharge Referrals: MATT MATHIAS DO [Primary Care Provider] - Follow up as needed
--- NOTE | 2020-04-18 20:37 | RADIOLOGY REPORT (SQ) ---
CLINICAL INDICATION: sob. TECHNIQUE: A single portable AP view was obtained of the chest at 2022 hours. COMPARISON: February 02, 2020. FINDINGS: The cardiomediastinal silhouette is normal. The lungs are grossly clear. No evidence of effusion or pneumothorax. Chronic parenchymal lung change, similar to prior.. IMPRESSION: No evidence of active intrathoracic disease.
[2020-04-18 21:02] LABS: ABSOLUTE EOSINOPHILS # (AUTO) 0.3 10^3/uL (0.0-0.6); ABSOLUTE LYMPHOCYTES (AUTO) 1.6 10^3/uL (0.5-4.7); ABSOLUTE MONOCYTES (AUTO) 0.5 10^3/uL (0.1-1.4); ABSOLUTE NEUT (AUTO) 4.1 10^3/uL (1.7-8.2); BASOPHILS % (AUTO) 0.3 % (0-2); EOSINOPHILS % (AUTO) 4.8 % (0-6); HEMATOCRIT 39.5 % (36.0-47.0); LYMPHOCYTES % (AUTO) 24.3 % (13-45); MEAN CORPUSCULAR HEMOGLOBIN 26.6 pg (27.0-33.4); MEAN CORPUSCULAR HGB CONC 32.8 g/dL (32.0-36.0); MEAN CORPUSCULAR VOLUME 81 fl (80-97); MONOCYTES % (AUTO) 7.6 % (3-13); PLATELET COUNT 206 10^3/uL (150-450); RED BLOOD COUNT 4.88 10^6/uL (3.72-5.28); RED CELL DISTRIBUTION WIDTH 16.8 % (11.5-14.0); TOTAL CELLS COUNTED % (AUTO) 100 %; WHITE BLOOD COUNT 6.5 10^3/uL (4.0-10.5)
[2020-04-18 21:18] LABS: ALBUMIN 4.1 g/dL (3.5-5.0); ALKALINE PHOSPHATASE 97 U/L (38-126); ANION GAP 5 (5-19); ASPARTATE AMINO TRANSFERASE 19 U/L (14-36); BILIRUBIN,TOTAL 0.3 mg/dL (0.2-1.3); BLOOD UREA NITROGEN 11 mg/dL (7-20); CALCIUM 9.5 mg/dL (8.4-10.2); CARBON DIOXIDE 28 mmol/L (22-30); CHLORIDE 105 mmol/L (98-107); GLUCOSE 99 mg/dL (75-110); POTASSIUM 4.5 mmol/L (3.6-5.0); TOTAL PROTEIN 7.1 g/dL (6.3-8.2)
[2020-04-18 21:30] LABS: NT PRO BNP 73 pg/mL (<125)
[2020-04-18 21:33] LABS: TROPONIN I < 0.012 ng/mL
--- NOTE | 2020-04-18 22:11 | EKG REPORT ---
SEVERITY:- NORMAL ECG - SINUS RHYTHM : Confirmed by: Dana Paulson MD 18-Apr-2020 22:10:52
[2020-04-18 22:22] LABS: APPEARANCE,URINE CLEAR; BILIRUBIN,URINE NEGATIVE (NEGATIVE); COLOR,URINE YELLOW; GLUCOSE, URINE NEGATIVE (NEGATIVE); KETONES,URINE NEGATIVE (NEGATIVE); LEUKOCYTE ESTERASE,URINE NEGATIVE (NEGATIVE); NITRITE,URINE NEGATIVE (NEGATIVE); PROTEIN,URINE NEGATIVE (NEGATIVE); URINE SPECIFIC GRAVITY 1.008; UROBILINOGEN,URINE NEGATIVE mg/dL (<2.0)
--- NOTE | 2020-04-18 22:31 | RADIOLOGY REPORT (SQ) ---
EXAM DESCRIPTION: CT ABDOMEN PELVIS WITH IV CONTRAST COMPLETED DATE/TME: 04/18/2020 19:39 CLINICAL HISTORY: 59 years, Female, abd pain with n/v/d COMPARISON: Prior CT from 10/10/2019 TECHNIQUE: Contrast enhanced CT of the abdomen/pelvis was acquired. Images were obtained after the administration of 100 mL of Omnipaque 350 intravenous contrast. Images stored on PACS. All CT scanners at this facility use dose modulation, iterative reconstruction, and/or weight based dosing when appropriate to reduce radiation dose to as low as reasonably achievable (ALARA). [facility]: Dose Right [facility]: CareDose [facility]: Dose Right [facility]: Teradose 4D [facility]: Crystal Clear Vision LIMITATIONS: None. FINDINGS: Limited evaluation of the lower chest reveals clear lung bases. Liver, spleen, pancreas, and left adrenal gland appear normal. There is nodular enlargement of the right adrenal gland, unchanged from the previous study dated 10/10/2019, previously found to represent a benign adenoma. Both kidneys enhance symmetrically. No hydronephrosis or hydroureter. The urinary bladder is partially collapsed, thus its evaluation is limited. Uterus is absent. Neither ovary is visualized. Small and large bowel appear normal in caliber. No evidence of bowel obstruction. Appendix is normal. No suspicious lymphadenopathy or drainable fluid collections are appreciated. Bone windows show no destructive osseous lesions. IMPRESSION: No acute abnormality within the abdomen or pelvis. TECHNICAL DOCUMENTATION: Quality ID # [id number]: Final reports with documentation of one or more dose reduction techniques (e.g., Automated exposure control, adjustment of the mA and/or kV according to patient size, use of iterative reconstruction technique) copyright 2011 [employer]- All Rights Reserved
[2020-04-18 22:46] VITALS: BP 146/87
[2020-04-18] MEDS ORDERED: KETOROLAC TROMETHAMINE INJ/PF 30 MG/1 ML SDV IV ONE (22:53)
[2020-04-18] MEDS ORDERED: OXYCODONE-ACETAMINOPHEN 5-325 MG TABLET PO ONE (23:41)
--- NOTE | 2020-04-18 23:44 | ER Document Report ---
ED GI/ - General Chief Complaint: Abdominal Pain Stated Complaint: ABDOMINAL PAIN/POSSIBLE OPIOD WITHDRAWL Time Seen by Provider: 04/18/20 19:35 Primary Care Provider: MATT MATHIAS DO [Primary Care Provider] - Follow up as needed Mode of Arrival: Ambulatory Information source: Patient Notes: 59-year-old female patient presents the emergency department with concern for abdominal cramping and diarrhea. She reports symptoms started yesterday. She denies any fever, nausea or vomiting. She is not had an exposure to any COVID- 19 patients despite the notes by the triage provider. Patient now denies this. She is most concerned that she has run out of her pain medication and has been "kicked out of pain management". She states she accidentally took her 's medication instead of hers and failed a drug test. TRAVEL OUTSIDE OF THE [place] IN LAST 30 DAYS: No - Related Data Allergies/Adverse Reactions: clindamycin Allergy (Verified 04/18/20 19:34) sulfamethoxazole [From Bactrim] Allergy (Verified 04/18/20 19:34) trimethoprim [From Bactrim] Allergy (Verified 04/18/20 19:34) vancomycin Allergy (Verified 04/18/20 19:34) Past Medical History - General Information source: Patient - Social History Smoking Status: Current Every Day Smoker Frequency of alcohol use: None Drug Abuse: None Family History: Reviewed & Not Pertinent, Hypertension, Malignancy, Other - [place] Patient has homicidal ideation: No - Past Medical History Cardiac Medical History: Reports: Hx Congestive Heart Failure, Hx DVT, Hx Hypertension, Hx Peripheral Vascular Disease Denies: Hx Coronary Artery Disease, Hx Heart Attack Pulmonary Medical History: Reports: Hx Bronchitis, Hx COPD - no home oxygen, Hx Pneumonia Denies: Hx Asthma, Hx Tuberculosis Neurological Medical History: Denies: Hx Cerebrovascular Accident, Hx Seizures Renal/ Medical History: Denies: Hx Peritoneal Dialysis GI Medical History: Reports: Hx Gastroesophageal Reflux Disease Musculoskeletal Medical History: Reports Hx Arthritis, Reports Hx Fibromyalgia Psychiatric Medical History: Reports: Hx Depression Past Surgical History: Reports: Hx Cholecystectomy, Hx Hysterectomy - complete due to CA, Hx Orthopedic Surgery - Bilateral feet screws. Denies: Hx Pacemaker - Immunizations Hx Diphtheria, Pertussis, Tetanus Vaccination: No Hx Pneumococcal Vaccination: 07/17/11 Review of Systems - Review of Systems Constitutional: No symptoms reported EENT: No symptoms reported Cardiovascular: No symptoms reported Respiratory: No symptoms reported Gastrointestinal: Abdominal pain, Diarrhea Genitourinary: No symptoms reported Female Genitourinary: No symptoms reported Musculoskeletal: No symptoms reported Skin: No symptoms reported Hematologic/Lymphatic: No symptoms reported Neurological/Psychological: No symptoms reported Physical Exam - Vital signs Vitals: Temp Pulse Resp BP Pulse Ox 98.3 F 93 16 149/86 H 97 04/18/20 18:48 04/18/20 18:48 04/18/20 18:48 04/18/20 18:48 04/18/20 18:48 - Notes Notes: PHYSICAL EXAMINATION: GENERAL: Appears older than stated age, obese, well-nourished and in no acute distress. HEAD: Atraumatic, normocephalic. EYES: Pupils equal round and reactive to light, extraocular movements intact, conjunctiva are normal. ENT: Nares patent, oropharynx clear without exudates. Moist mucous membranes. NECK: Normal range of motion, supple without lymphadenopathy LUNGS: Breath sounds clear to auscultation bilaterally and equal. No wheezes rales or rhonchi. HEART: Regular rate and rhythm without murmurs ABDOMEN: Soft, large, round, nondistended abdomen. No guarding, no rebound. No masses appreciated. Female : deferred Musculoskeletal: Normal range of motion, no pitting or edema. No cyanosis. NEUROLOGICAL: Cranial nerves grossly intact. Normal speech, normal gait. Normal sensory, motor exams PSYCH: Normal mood, normal affect. SKIN: Warm, Dry, normal turgor, no rashes or lesions noted. Course - Re-evaluation Re-evalutation: Laboratory 04/18/20 04/18/20 04/18/20 20:30 20:30 20:30 WBC 6.5 RBC 4.88 Hgb 13.0 Hct 39.5 MCV 81 MCH 26.6 L MCHC 32.8 RDW 16.8 H Plt Count 206 Lymph % (Auto) 24.3 Swain % (Auto) 7.6 Eos % (Auto) 4.8 Baso % (Auto) 0.3 Absolute Neuts (auto) 4.1 Absolute Lymphs (auto) 1.6 Absolute Monos (auto) 0.5 Absolute Eos (auto) 0.3 Absolute Basos (auto) 0.0 Seg Neutrophils % 63.0 Sodium 138.1 Potassium 4.5 Chloride 105 Carbon Dioxide 28 Anion Gap 5 BUN 11 Creatinine 0.87 Est GFR ( Amer) > 60 Est GFR (MDRD) Non-Af > 60 Glucose 99 Calcium 9.5 Total Bilirubin 0.3 Direct Bilirubin 0.0 Neonat Total Bilirubin Not Reportable Neonat Direct Bilirubin Not Reportable Neonat Indirect Bili Not Reportable AST 19 ALT 14 Alkaline Phosphatase 97 Troponin I < 0.012 NT-Pro-B Natriuret Pep 73 Total Protein 7.1 Albumin 4.1 Lipase 156.6 Urine Color Urine Appearance Urine pH Ur Specific [place] Urine Protein Urine Glucose (UA) Urine Ketones Urine Blood Urine Nitrite Urine Bilirubin Urine Urobilinogen Ur Leukocyte Esterase Urine WBC (Auto) Squamous Epi Cells Auto Urine Mucus (Auto) Urine Ascorbic Acid 04/18/20 21:54 WBC RBC Hgb Hct MCV MCH MCHC RDW Plt Count Lymph % (Auto) Swain % (Auto) Eos % (Auto) Baso % (Auto) Absolute Neuts (auto) Absolute Lymphs (auto) Absolute Monos (auto) Absolute Eos (auto) Absolute Basos (auto) Seg Neutrophils % Sodium Potassium Chloride Carbon Dioxide Anion Gap BUN Creatinine Est GFR ( Amer) Est GFR (MDRD) Non-Af Glucose Calcium Total Bilirubin Direct Bilirubin Neonat Total Bilirubin Neonat Direct Bilirubin Neonat Indirect Bili AST ALT Alkaline Phosphatase Troponin I NT-Pro-B Natriuret Pep Total Protein Albumin Lipase Urine Color YELLOW Urine Appearance CLEAR Urine pH 7.0 Ur Specific [place] 1.008 Urine Protein NEGATIVE Urine Glucose (UA) NEGATIVE Urine Ketones NEGATIVE Urine Blood NEGATIVE Urine Nitrite NEGATIVE Urine Bilirubin NEGATIVE Urine Urobilinogen NEGATIVE Ur Leukocyte Esterase NEGATIVE Urine WBC (Auto) 1 Squamous Epi Cells Auto 4 Urine Mucus (Auto) RARE Urine Ascorbic Acid NEGATIVE Abdomen/Pelvis CT 04/18/20 19:39 IMPRESSION: No acute abnormality within the abdomen or pelvis. TECHNICAL DOCUMENTATION: Quality ID # [id number]: Final reports with documentation of one or more dose reduction techniques (e.g., Automated exposure control, adjustment of the mA and/or kV according to patient size, use of iterative reconstruction technique) copyright 2011 [email or web address]- All Rights Reserved Chest X-Ray 04/18/20 19:49 IMPRESSION: No evidence of active intrathoracic disease. Patient appears well, nontoxic, labs reviewed, no acute findings noted. Patient's also had a's CAT scan of the abdomen and pelvis, there is no acute abnormality here. Patient given a dose of Percocet prior to discharge. She was encouraged to follow-up with her primary so she can get back in with pain management. I explained patient we do not treat chronic pain in the emergency department and we cannot write a prescription for her chronic pain medication. Patient verbalized understanding and agreement with same. - Vital Signs Vital signs: Temp Pulse Resp BP Pulse Ox 98.3 F 89 20 146/87 H 97 04/18/20 22:45 04/18/20 22:45 04/18/20 22:45 04/18/20 22:45 04/18/20 22:45 - Laboratory Result Diagrams: 04/18/20 20:30 04/18/20 20:30 Laboratory results interpreted by me: 04/18/20 20:30 MCH 26.6 L RDW 16.8 H Discharge - Discharge Clinical Impression: Abdominal pain Qualifiers: Abdominal location: unspecified location Qualified Code(s): R10.9 - Unspecified abdominal pain Chronic pain Qualifiers: Chronic pain type: other chronic pain Qualified Code(s): G89.29 - Other chronic pain Condition: Stable Disposition: HOME, SELF-CARE Instructions: Abdominal Pain ([facility]) Additional Instructions: Your work-up today was reassuring. Please contact your primary care provider so that you can get established with a new pain management doctor as the emergency department is unable to write prescriptions for chronic pain medications. Referrals: MATT MATHIAS DO [Primary Care Provider] - Follow up as needed
== END 2020-04-19 00:07 | disposition home or self-care (01) ==
LOC: ER 18:29
DX: R10.9 Unspecified abdominal pain (principal); G89.29 Other chronic pain; R19.7 Diarrhea, unspecified; I10 Essential (primary) hypertension; J44.9 Chronic obstructive pulmonary disease, unspecified; F17.200 Nicotine dependence, unspecified, uncomplicated; Z90.49 Acquired absence of other specified parts of digestive tract; Z90.710 Acquired absence of both cervix and uterus; Z87.19 Personal history of other diseases of the digestive system; Z88.1 Allergy status to other antibiotic agents
CPT/HCPCS: 93005; 99284; 96361; 96374; 96375; 36415; 83690; 85025; 80053; 81001; 84484; 83880; 71045; 74177; 93010; J1885; A9270; J2405; J7030

== ENCOUNTER 2020-04-21 00:30 | Emergency (ER) | payer MEDICARE, MEDICAID ==
[2020-04-21] MEDS ORDERED: PROMETHAZINE HCL INJ 25 MG/1 ML VIAL IV ONE (04:20)
[2020-04-21 04:49] VITALS: BP 140/76
--- NOTE | 2020-04-21 05:15 | ER Document Report ---
Entered by LACIE CAGE SCRIBE 04/21/20 0420 Acting as scribe for:KELLEN LIN IV, MD ED GI/ - General Chief Complaint: Nausea/Vomiting/Diarrhea Stated Complaint: POSSIBLE WITHDRAWL Time Seen by Provider: 04/21/20 03:52 Primary Care Provider: MATT MATHIAS DO [Primary Care Provider] - Follow up as needed Mode of Arrival: Medic Information source: Patient Notes: This 59 year old female patient brought in by EMS presents to the ED today with complaints of nausea/vomiting with associated abdominal cramps that started late last night and continued this morning. Patient states that she is unable to keep anything down. Per EMS, patient was taken out of pain management due to taking her 's medication. She was seen here x3 days ago for the same symptoms and was discharged with instructions to follow up with her PCP to establish care with a new pain management doctor. TRAVEL OUTSIDE OF THE [place] IN LAST 30 DAYS: No - Related Data Allergies/Adverse Reactions: clindamycin Allergy (Verified 04/18/20 19:34) sulfamethoxazole [From Bactrim] Allergy (Verified 04/18/20 19:34) trimethoprim [From Bactrim] Allergy (Verified 04/18/20 19:34) vancomycin Allergy (Verified 04/18/20 19:34) Past Medical History - General Information source: Patient - Social History Smoking Status: Current Every Day Smoker Cigarette use (# per day): Yes Chew tobacco use (# tins/day): No Smoking Education Provided: No Frequency of alcohol use: None Drug Abuse: None Lives with: Spouse/Significant other Family History: Reviewed & Not Pertinent, CAD - [place], Hypertension, Malignancy Patient has suicidal ideation: No Patient has homicidal ideation: No - Past Medical History Cardiac Medical History: Reports: Hx Congestive Heart Failure, Hx DVT, Hx Hypertension, Hx Peripheral Vascular Disease Pulmonary Medical History: Reports: Hx Bronchitis, Hx COPD - no home oxygen, Hx Pneumonia GI Medical History: Reports: Hx Gastroesophageal Reflux Disease Musculoskeletal Medical History: Reports Hx Arthritis, Reports Hx Fibromyalgia Psychiatric Medical History: Reports: Hx Depression Past Surgical History: Reports: Hx Cholecystectomy, Hx Hysterectomy - complete due to CA, Hx Orthopedic Surgery - Bilateral feet screws - Immunizations Hx Diphtheria, Pertussis, Tetanus Vaccination: No Hx Pneumococcal Vaccination: 07/17/11 Review of Systems - Review of Systems Constitutional: No symptoms reported EENT: No symptoms reported Cardiovascular: No symptoms reported Respiratory: No symptoms reported Gastrointestinal: See HPI, Abdominal pain, Nausea, Vomiting Genitourinary: No symptoms reported Female Genitourinary: No symptoms reported Musculoskeletal: No symptoms reported Skin: No symptoms reported Hematologic/Lymphatic: No symptoms reported Neurological/Psychological: No symptoms reported -: Yes All other systems reviewed and negative Physical Exam - Vital signs Vitals: Temp Pulse BP Pulse Ox 98.1 F 74 157/81 H 100 04/21/20 00:39 04/21/20 00:39 04/21/20 00:39 04/21/20 00:39 - General General appearance: Alert In distress: None - HEENT Head: Normocephalic, Atraumatic Eyes: Normal Pupils: PERRL - Respiratory Respiratory status: No respiratory distress Chest status: Nontender Breath sounds: Normal Chest palpation: Normal - Cardiovascular Rhythm: Regular Heart sounds: Normal auscultation Murmur: No - Abdominal Inspection: Morbidly Obese Distension: No distension Bowel sounds: Normal Tenderness: Nontender - Abdomen soft Organomegaly: No organomegaly - Back Back: Normal, Nontender - Extremities General upper extremity: Normal inspection General lower extremity: Normal inspection - Neurological Neuro grossly intact: Yes Orientation: AAOx4 Ramya Coma Scale Eye Opening: Spontaneous [place] Coma Scale Verbal: Oriented Ramya Coma Scale Motor: Obeys Commands Ramya Coma Scale Total: 15 - Psychological Associated symptoms: Normal affect, Normal mood - Skin Skin Temperature: Warm Skin Moisture: Dry Skin Color: Normal Course - Re-evaluation Re-evalutation: 04/21/20 04:20 Patient informed that she would not be receiving any opioid pain medications. Patient stated that she did not want any pain medications she just wanted something for her "sickness", nausea and vomiting and abdominal cramps. This MD informed her that she would receive a dose of Phenergan and would be discharged and she can follow-up with her provider at the pain clinic. - Vital Signs Vital signs: Temp Pulse Resp BP Pulse Ox 98.1 F 74 157/81 H 100 04/21/20 01:02 04/21/20 00:39 04/21/20 00:39 04/21/20 00:39 Discharge - Discharge Clinical Impression: History of chronic pain Nausea & vomiting Qualifiers: Vomiting type: unspecified Vomiting Intractability: unspecified Qualified Code(s): R11.2 - Nausea with vomiting, unspecified Condition: Stable Disposition: HOME, SELF-CARE Additional Instructions: Please follow-up with your pain management provider. We do not treat chronic pain in the emergency department. Referrals: MATT MATHIAS, DO [Primary Care Provider] - Follow up as needed I personally performed the services described in the documentation, reviewed and edited the documentation which was dictated to the scribe in my presence, and it accurately records my words and actions.
== END 2020-04-21 04:50 | disposition home or self-care (01) ==
LOC: ER 00:30
DX: R11.2 Nausea with vomiting, unspecified (principal); R19.7 Diarrhea, unspecified; R10.84 Generalized abdominal pain; F17.210 Nicotine dependence, cigarettes, uncomplicated; E66.01 Morbid (severe) obesity due to excess calories; Z88.3 Allergy status to other anti-infective agents; I50.9 Heart failure, unspecified; I11.0 Hypertensive heart disease with heart failure; Z86.718 Personal history of other venous thrombosis and embolism; Z90.710 Acquired absence of both cervix and uterus
CPT/HCPCS: 99284; 96374; J2550